=== PATIENT | female | born 1965 | race Caucasian/White ===

== ENCOUNTER 2017-02-26 08:35 | Outpatient (CLI) | payer MEDICARE, MEDICAID ==
[~2017-02-26] VITALS: Ht 151.1 cm; Wt 63.6 kg
--- NOTE | ~2017-02-26 | HEMODYNAMI ---
PATIENT:BRIAN BARBOSA MEDICAL RECORD: [id number] : 69 LOCATION:D.CAT ADMISSION DATE: 02/26/17 Generatedon:02/26/201713:26 Patient name: BRIAN BARBOSA Patient #: [id number] SSN: : 1965 Date of study: 02/26/2017 Page: Of Hemodynamic Procedure Report Patient Data Patient Demographics Procedure consent was obtained First Name: BRIAN Gender: Female Last Name: CHELSEY : 1965 Middle Initial: M Age: 51 year(s) Patient #: [id number] Race: Additional ID: [id number] Contact details Address: [address] [place] [address] [address] State: [place] [facility] [place] Zip code: [address] Past Medical History History of disease Date Diagnosis Comments CAD Allergies Allergen Reaction Date Comments Reported Sulfa drugs 04/26/2015 Contrast 04/26/2015 Admission Admission Data Admission Date: 02/26/2017 Admission Time: 8:35 Procedure Procedure Types Cath Procedure Diagnostic Procedure [facility] w/Coronaries PCI Procedure Coronary Stent Initial x2 Miscellaneous Procedures Moderate Sedation up to 15 minutes Procedure Description Procedure Date Procedure Date: 02/26/2017 Procedure Start Time: 13:06 Procedure End Time: 13:21 Procedure Staff Name Function Jenn De La Rosa RT Scrub Riky Goodrich RT Monitor Min Camarillo RN Nurse Abdulkadir Vidales MD Performing Physician Brenda Long RT Monitor Procedure Data Cath Procedure Fluoroscopy Diagnostic fluoroscopy Total fluoroscopy Time: 3.1 time: 3.1 min min Diagnostic fluoroscopy Total fluoroscopy dose: 455 dose: 455 mGy mGy Contrast Material Contrast Material Type Amount (ml) Isovue 300 79 Entry Location Entry Primary Successful Side Size Upsize Upsize Entry Closure Succes sful Closure Location (Fr) 1 (Fr) 2 (Fr) Remarks Device Remarks Femoral Right 5 Fr 6 Fr artery Short Estimated blood loss: 10 ml Diagnostic catheters Device Type Used For End Catheter Placement Cordis 5Fr Pigtail Procedure Catheter (MP) Cordis 5Fr JL 4.0 Procedure Catheter (MP) Cordis 5Fr 3DRC Catheter Procedure (MP) Procedure Complications No complications Procedure Medications Medication Administration Route Dosage Oxygen NC 2 l/min Heparin Flush Bag added to field 2 bags (1000units/500ml NS) 0.9% NaCl I.V. 100 ml/hr Fentanyl I.V. 50 mcg Versed I.V. 1 mg Fentanyl I.V. 50 mcg Heparin Bolus I.V. 4000 units Versed I.V. 1 mg Hemodynamics Rest Heart Rate: 90 (bpm) Snapshots Pre Cath Intra NCS Post Cath Vital Signs Time Heart Resp SPO2 NIBP (mmHg) Rhythm Pain Sedation Rate (ipm) (%) Status Level (bpm) 12:55:44 87 19 96 117/76(101) NSR 0 (11) 10(A) , No pain 12:59:50 88 17 97 115/76(92) NSR 0 (11) 10(A) , No pain 13:03:56 75 17 96 110/74(98) NSR 0 (11) 10(A) , No pain 13:07:53 82 17 97 110/89(105) NSR 0 (11) 9(A) , No pain 13:11:55 88 19 96 113/80(98) NSR 0 (11) 9(A) , No pain 13:16:01 89 19 97 110/68(84) NSR 0 (11) 9(A) , No pain 13:20:04 90 18 96 106/74(87) NSR 0 (11) 9(A) , No pain 13:21:31 89 17 96 108/72(90) NSR 0 (11) 9(A) , No pain Medications Time Medication Route Dose Verified Delivered Reason Notes Effectiveness by by 13:04:41 Oxygen NC 2 Min [place] Per physician l/min Marquise Camarillo RN RN 13:04:50 Heparin Flush added 2 Min [place] used for Bag to bags Marquise Camarillo RN procedure (1000units/500ml field RN NS) 13:05:01 0.9% NaCl I.V. 100 Min [place] Per physician ml/hr Marquise Camarillo RN RN 13:05:09 Fentanyl I.V. 50 Min [place] for sedation mcg Marquise Camarillo RN RN 13:05:15 Versed I.V. 1 mg Min [place] for sedation Marquise Camarillo RN RN 13:14:47 Fentanyl I.V. 50 Min [place] for sedation mcg Marquise Camarillo RN RN 13:14:57 Heparin Bolus I.V. 4000 Min [place] for units Marquise Camarillo RN anticoagulation RN 13:16:32 Versed I.V. 1 mg Min [place] for sedation Marquise Camarillo RN fusing machine operator Log Time Note 12:32:58 Min Camarillo RN sent for patient. Start room use. 12:42:59 Time tracking: Regular hours 12:43:02 Plan of Care:Hemodynamics will remain stable., Cardiac rhythm will remain stable., Comfort level will be maintained., Respiratory function will remain adequate., Patient/ family verbilizes understanding of procedure., Procedure tolerated without complication., Recovers from procedure without complications.. 12:50:09 Patient received from Pre/Post Procedure Room to CCL 2 Alert and oriented. Tansferred to table in Supine position. 12:50:10 Correct patient and procedure confirmed by team. 12:50:10 Warm blankets applied, and briseida hugger turned on for patient comfort. 12:50:12 Signed procedure consent form obtained from patient. 12:50:18 ECG and BP/O2 sat monitors applied to patient. 12:50:19 Full Disclosure recording started 12:54:42 Vital chart was started 12:56:11 Baseline sample Acquired. 12:56:15 Rhythm: sinus rhythm 12:56:34 H&P Date Dictated: 02/25/2017 Within 30 days and on chart., H&P Addendum completed by physician on day of procedure. (MUST COMPLETE FOR ALL OUTPATIENTS). 12:56:35 Pre-procedure instructions explained to patient. 12:56:37 Family in waiting room. 12:56:44 Is the patient allergic to Iodine/contrast media? No. 12:56:51 Is patient on blood thinner?Yes 12:56:54 ACC The patient was administered the following blood thiners within the last 24 hours: ACCPlavix 12:56:56 Patient diabetic? Yes. 12:56:58 If diabetic: On Metformin? Yes 12:57:00 If on Metformin: Last Dose? 02/25/2017 12:57:05 Snore? Yes 12:57:06 Sleep apnea? Yes 12:57:10 Dentures? Yes ? 12:57:15 Patient pain scale 0/10 ?. 12:57:25 IV patent on arrival in left forearm with 0.9% NaCl at [facility]. 12:57:31 Lab results completed and on chart. 12:57:35 Right groin area was prepped with chlora-prep and draped in sterile fashion 12:57:37 Alarms reviewed by R. N. 12:57:38 Sharps counted by scrub and verified by R.N. 12:57:39 Physician paged 13:00:52 Physician arrived 13:00:53 --------ALL STOP TIME OUT------ 13:00:54 Final Timeout: patient, procedure, and site verified with staff and physician. All members of the team are in agreement. 13:00:56 Right groin site verified by team. 13:01:01 Sedation plan: IV Moderate Sedation Versed, Fentanyl 13:01:05 Physical assessment completed. ASA score P 3 - A patient with severe systemic disease as per Abdulkadir Vidales MD. 13:02:31 Use device set Femoral Dx 13:02:33 Medline Cath Pack opened to sterile field. 13:02:33 Bag Decanter opened to sterile field. 13:02:33 Acist Syringe opened to sterile field. 13:02:34 Terumo 5Fr [place] Sheath opened to sterile field. 13:02:35 St Moiz 260cm J .035 wire opened to sterile field. 13:02:36 Acist Manifold opened to sterile field. 13:02:36 Acist Hand Control opened to sterile field. 13:02:37 Tegaderm 4 x 4 opened to sterile field. 13:02:37 Diagnostic Infinity 5Fr Multipack catheter opened to sterile field. 13:04:41 Oxygen 2 l/min NC was administered by Min Camarillo RN; Per physician; 13:04:50 Heparin Flush Bag (1000units/500ml NS) 2 bags added to field was administered by Min Camarillo RN; used for procedure; 13:05:01 0.9% NaCl 100 ml/hr I.V. was administered by Min Camarillo RN; Per physician; 13:05:09 Fentanyl 50 mcg I.V. was administered by Min Camarillo RN; for sedation; 13:05:15 Versed 1 mg I.V. was administered by Min Camarillo RN; for sedation; 13:05:35 Zero performed for pressure channel P1 13:05:46 Zero performed for pressure channel P1 13:05:49 Zero performed for pressure channel P1 13:06:35 Procedure started. 13:06:44 Local anesthetic to right femoral artery with Lidocaine 2% by Abdulkadir Vidales MD.INITIAL ACCESS ONLY 13:07:04 A 5 Fr sheath was inserted into the Right Femoral artery 13:07:39 A Cordis 5Fr Pigtail Catheter (MP) was advanced over the wire and used for Procedure. 13:08:01 LV angiography performed. 13:08:13 EF : 50 % 13:08:17 Catheter removed. 13:08:26 A Cordis 5Fr JL 4.0 Catheter (MP) was advanced over the wire and used for Procedure. 13:09:30 Catheter removed. 13:09:37 A Cordis 5Fr 3DRC Catheter (MP) was advanced over the wire and used for Procedure. 13:09:56 Terumo 6Fr [place] Sheath opened to sterile field. 13:09:57 [employer] BasixCompak Inflation Kit opened to sterile field. 13:09:58 Payne Whisper J 300cm 0.014 guide wire opened to sterile field. 13:10:57 Sheath upsized to a 6 Fr Short. 13:12:30 6 Fr 3drc guide catheter was inserted over the wire 13:12:49 WestEdtronic Launcher 6Fr 3DRC guide catheter opened to sterile field. 13:12:54 Wire advanced across lesion. 13:14:47 Fentanyl 50 mcg I.V. was administered by Min Camarillo RN; for sedation; 13:14:57 Heparin Bolus 4000 units I.V. was administered by Min Camarillo RN; for anticoagulation; 13:15:01 Inflation Number: 1 A [place] OTW 3.0 x 08 stent was prepped and advanced across the Prox LAD. The stent was deployed at 17 JAROD for 0:10 (min:sec). 13:15:15 Stent catheter was removed intact over wire. 13:16:32 Versed 1 mg I.V. was administered by Min Camarillo RN; for sedation; 13:16:36 Guide catheter removed. 13:16:38 Cordis 6FR XBLAD 3.5 guide catheter opened to sterile field. 13:16:43 Wire advanced across lesion. 13:18:16 Inflation Number: 2 A Doc OTW 3.0 x 08 stent was prepped and advanced across the Prox LAD. The stent was deployed at 17 JAROD for 0:10 (min:sec). 13:18:35 Guide catheter removed. 13:18:55 Cordis 6Fr Exoseal opened to sterile field. 13:19:39 Procedure ended.(Physican Out) 13:19:53 Fluoroscopy time 03.10 minutes. 13:19:58 Fluoroscopy dose: 455 mGy 13:19:58 Flurop Dose total: 455 13:20:05 Contrast amount:Isovue 300 79ml. 13:20:07 Sharps counted by scrub and verified by R.N. 13:20:09 Insertion/operative site no bleeding no hematoma. 13:20:17 Post right femoral artery:stable 13:20:19 Post Procedure Pulses reassessed and unchanged 13:20:25 Post-procedure physical assessment completed. ASA score P 3 - A patient with severe systemic disease as per Abdulkadir Vidales MD. 13:20:29 Post procedure rhythm: unchanged. 13:20:33 Estimated blood loss: 10 ml 13:20:35 Post procedure instruction explained to patient.Patient verbalizes understanding. 13:21:01 Procedure type changed to Cath procedure, Diagnostic procedure, LHC, LHC w/Coronaries, PCI procedure, Coronary Stent Initial x2, Miscellaneous Procedures, Moderate Sedation up to 15 minutes 13:21:02 Procedure and supply charges have been captured, reviewed, submitted and are correct. 13:21:23 Procedure Complication : No complications 13:21:25 Vital chart was stopped 13:21:28 See physician's report for complete and final results. 13:21:31 Report given to Pre/Post Procedure Room. 13:21:35 Patient transfered to Pre/Post Procedure Room with Stretcher. 13:21:37 Full Disclosure recording stopped 13:21:37 Procedure ended. 13:21:40 End room use (Document Last) 13:21:49 ACC-PCI Only Patient was given prescriptions, or instructed by Abdulkadir Vidales MD to start/continue the following medications upon discharge: Plavix Intervention Summary Intervention Notes Time ActionType Lesion and Equipment Action# Pressure Duration Attributes Used 13:15:01 Place stent Prox LAD [place] OTW 1 17 00:10 3.0 x 08 stent 13:18:16 Place stent Prox LAD Doc OTW 2 17 00:10 3.0 x 08 stent Device Usage Item Name Manufacture Quantity Catalog Hospital Part Current Minima l Lot# / Number Charge Number Stock Stock Serial# Code Acist Acist 1 24012 481655 801286 073454 20 Syringe Medical Systems Inc Bag Microtek 1 2002S 834022 00736 260212 5 [employer] Medline Cardinal 1 [id number] 843379 56486 604613 5 Cath Pack Health Terumo 5Fr Terumo 1 OHQ200 829336 912807 490953 [address] Moiz 1 [id number] 539087 109617 560940 30 260cm J .035 wire Acist Hand Acist 1 44348 378396 259161 486862 5 Control Medical Systems Inc Acist Acist 1 30456 344415 642142 007876 5 Leondra music Systems Inc Diagnostic Cardinal 1 [id number] 102208 26121 708759 30 Infinity Health 5Fr Multipack catheter Tegaderm 4 3M 1 1626W 343444 694637 655951 5 x 4 Cordis 5Fr Cardinal 1 204814 5 Pigtail Health Catheter (MP) Cordis 5Fr Cardinal 1 [id number] 5 JL 4.0 Health Catheter (MP) Cordis 5Fr Cardinal 1 966302 5 3DRC Health Catheter (MP) Terumo 6Fr Terumo 1 CNQ522 784278 197449 168013 40 [place] Sheath Merit Merit 1 ID4763 267406 168949 339445 15 [facility] Hospital[facility] Medical Inflation Kit Payne Payne 1 [id number] 857021 493488 075480 5 Whisper J Vascular 300cm 0.014 guide wire Medtronic Medtronic 1 [id number] 396228 056632 775539 1 Launcher 6Fr 3DRC guide catheter Doc OTW Medtronic 2 [id number] 734995 4572948 232897 5 [id number] 3.0 x 08 [id number] stent Cordis 6FR Cardinal 1 [id number] 383845 455565 363631 10 XBLAD 3.5 Health guide catheter Cordis 6Fr Cardinal 1 EX600 510089 441214 217952 10 [facility] Health Signature Audit [place] Stage Time Signature Unsigned Intra-Procedure 02/26/2017 Brenda Long 1:26:08 PM RT(R) Signatures Monitor : Riky Goodrich RT Signature : Date : Time : Monitor : Brenda Long Signature : RT Date : Time : [address] [address]
[~2017-02-26 08:35] MED LIST: ALBUTEROL2.5 MG/3 M UPD; AMBIEN10 MG PO; AMBIEN5 MG PO; BAYER CHEWABLE81 MG PO; BUSPAR 15 MG TA15 MG PO; CELEBREX200 MG PO; CELEXA20 MG PO; COLACE100 MG PO; COMBIVENT RESPIM4 GM INH; DUEXIS PO; LATUDA40 MG PO; LEVAQUIN750 MG PO; LIPITOR80 MG PO; LOPRESSOR50 MG PO; LYRICA200 MG PO; MAXALT10 MG PO; NASONEX NASAL S17 GM NS; NEURONTIN 100100 MG PO; NEURONTIN 300300 MG PO; NEXIUM40 MG PO; NIASPAN500 MG PO; NITROSTAT0.4 MG SL; PAXIL20 MG PO; PAXIL30 MG PO; PERCOCET 10/3251 TA1 PO; PHENERGAN25 M1 PO; PLAVIX75 MG PO; PREDNISONE10 MG PO; PROAIR HFA8.5 GM INH; RANEXA1000 MG PO; RELPAX20 MG PO; REQUIP XL2 MG PO; SOMA350 MG PO; SYMBICORT 16010.2 GM INH; TOPAMAX200 MG PO; TRAZODONE HCL150 MG PO; TRICOR145 MG PO; TRILIPIX135 MG PO; VENTOLIN HFA18 GM INH; VESICARE10 MG PO; XANAX1 MG PO; ZOFRAN4 MG PO
[2017-02-26] MEDS ORDERED: ZANAFLEX4 MG PO (09:21)
[2017-02-26] MEDS ORDERED: PAXIL40 MG PO (09:21)
[2017-02-26] MEDS ORDERED: GLUCOPHAGE500 MG PO (09:23)
[2017-02-26 09:29] VITALS: BP 115/73; Ht 151.1 cm; Wt 63.6 kg
[2017-02-26 10:25] LABS: CALC OSMOLALITY 285 mosm/kg (275-300); CALCIUM 8.3 mg/dL (8.5-10.1); CARBON DIOXIDE 24.4 mmol/L (21.0-32.0); CHLORIDE - SERUM 103 mmol/L (98-107); CREATININE - SERUM 0.8 mg/dL (0.6-1.3); GLUCOSE 180 mg/dL (74-106); POTASSIUM - SERUM 4.7 mmol/L (3.5-5.1); SODIUM 139 mmol/L (136-145); UREA NITROGEN 20 mg/dL (7-18); eGFR NON AFRICAN AMERICAN 81 mL/min (90-120)
[2017-02-26 10:30] LABS: HCG SERUM NEGATIVE (NEGATIVE)
[2017-02-26 12:53] LABS: BASOPHILS 0.3 % (0-2); EOSINOPHILS 0 % (0-7); HEMATOCRIT 43.9 % (36.0-48.0); HEMOGLOBIN 14.3 g/dL (12-16); IMMATURE GRANULOCYTES 1.8 % (0-5); LYMPHOCYTES 16.4 % (15-50); MCH 31.6 pg (26.0-34.0); MCHC 32.6 g/dL (31.0-37.0); MCV 97.1 fL (80.0-100.0); MEAN PLATELET VOLUME 10.2 fL (7.4-10.4); MONOCYTES 1.5 % (2-11); RBC 4.52 10x6/uL (4.00-5.40); RDW 13.9 % (11.5-14.5); WBC 7.1 10x3/uL (4.8-10.8)
[2017-02-26 13:01] LABS: PLATELET COUNT 329 10x3/uL (130-400)
--- NOTE | 2017-02-26 14:00 | NUR ---
RIGHT GROIN CDI, NO HEMATOMA OR BLEEDING AT SITE, SOFT TO TOUCH
--- NOTE | 2017-02-26 14:30 | NUR ---
RESTING, NO CHANGE IN RIGHT GROIN
[2017-02-26] MEDS ORDERED: PLAVIX75 MG PO (14:37)
--- NOTE | 2017-02-26 17:15 | NUR ---
IV D'C WITH CATH TIP INTACT, WRITTEN AND VERBAL INSTRUCTIONS GIVEN TO PT- VERBAL UNDERSTANDING NOTED. [facility] SENT HOME WITH PT AND STRESSED IMPORTANCE OF GETTING THIS FILLED TOMORROW. D'C HOME WITH STEP-DAUGHTER
--- NOTE | 2017-02-27 12:31 | OP ---
PATIENT NAME: BRIAN BARBOSA MEDICAL RECORD: [id number] :[birth year] LOCATION:D.CAT ADMISSION DATE: SURGEON: ELLEN LU MD DATE OF OPERATION: 02/26/2017 PROCEDURES: 1. PTCA stent RCA. 2. PTCA stent LAD. 3. Left heart catheterization. 4. Selective coronary angiography. 5. Left ventriculogram. INDICATION: Angina and coronary artery disease. PROCEDURE IN DETAIL: After informed consent was obtained and after a detailed explanation of the risks, benefits as well as alternative therapies, the patient elected to proceed with angiogram and angioplasty. The right femoral area is prepped and draped in normal sterile fashion. The right femoral artery was cannulated via modified Seldinger technique with placement of 6-English sheath. All catheters exchanged through this sheath. FINDINGS: Left ventriculogram was performed in standard 30-degree GRIMALDO view, reveals good cardiac wall motion throughout all segments. Overall ejection fraction estimated at 55% to 60%. SELECTIVE CORONARY ANGIOGRAPHY: 1. Left main has no significant angiographic disease. 2. Left anterior descending has 80% stenosis at the ostium. 3. Left circumflex has mild irregularities, but no flow-limiting stenosis. Previously placed stents are widely patent. 4. The right coronary has previously placed stents, these are widely patent; however, there is 80% stenosis in the mid distal vessel. PTCA STENT OF THE RCA and LAD: Both vessels were addressed with a 3.0 x 8 mm [place] stent. Result was 0% residual stenosis. OVERALL IMPRESSION: Successful percutaneous transluminal coronary angioplasty stent of the RCA and LAD, both going from 80% initial stenosis to 0% residual. TRANSINT:[id number] Voice Confirmation ID: [id number] DOCUMENT ID: [id number] ELLEN LU MD at 1231 CC: [id number] DICTATION DATE: 02/26/17 1323 ORE MIXER: 02/26/17 2137 [facility] CLI 02/26/[address] [address]
== END 2017-02-26 17:30 | disposition home or self-care (01) ==
LOC: D.CATH 08:35
PROVIDERS: Internal Medicine Interventional Cardiology
DX: I25.119 Atherosclerotic heart disease of native coronary artery with unspecified angina pectoris (principal); Z01.812 Encounter for preprocedural laboratory examination

== ENCOUNTER → 2017-03-11 10:04 | Outpatient (CLI) | payer MEDICARE, MEDICAID ==
[2017-02-26 09:29] VITALS: BMI 27.8
[~2017-03-11 10:04] MED LIST changes: +GLUCOPHAGE500 MG PO; +PAXIL40 MG PO; +ZANAFLEX4 MG PO
== END | disposition home or self-care (01) ==
LOC: D.MRI 03-05 11:30
DX: M54.12 Radiculopathy, cervical region (principal)

== ENCOUNTER 2017-12-31 08:09 | Outpatient (CLI) | payer MEDICARE, MEDICAID ==
[~2017-12-31] VITALS: Ht 149.9 cm; Wt 61.4 kg
--- NOTE | ~2017-12-31 | HEMODYNAMI ---
PATIENT:BRIAN BARBOSA MEDICAL RECORD: [id number] : 69 LOCATION:[facility] ADMISSION DATE: 12/31/17 Generatedon:12/31/201713:56 Patient name: BRIAN BARBOSA Patient #: [id number] SSN: : 1965 Date of study: 12/31/2017 Page: Of Hemodynamic Procedure Report Patient Data Patient Demographics Procedure consent was obtained First Name: BRIAN Gender: Female Last Name: CHELSEY : 1965 Middle Initial: M Age: 52 year(s) Patient #: [id number] Race: Additional ID: [id number] Contact details Address: [address] [place] [address] [address] State: [place] City: [facility] Zip code: [address] Past Medical History History of disease Date Diagnosis Comments CAD Allergies Allergen Reaction Date Comments Reported Sulfa drugs 04/26/2015 Contrast 04/26/2015 Iodine 12/31/2017 Sulfa drugs 12/31/2017 Admission Admission Data Admission Date: 12/31/2017 Admission Time: 8:09 Procedure Procedure Types Cath Procedure Diagnostic Procedure [facility] w/Coronaries FFR/IVUS Intra-Coronary IVUS Initial Sedation Charges Moderate Sedation up to 15 minutes PCI Procedure Coronary Stent Coronary Stent Initial Procedure Description Procedure Date Procedure Date: 12/31/2017 Procedure Start Time: 13:36 Procedure End Time: 13:55 Procedure Staff Name Function Abdulkadir Vidales MD Performing Physician Jenn De La Rosa RT Monitor Riky Goodrich RT Scrub Wai Wray RN Nurse Procedure Data Cath Procedure Fluoroscopy Diagnostic fluoroscopy Total fluoroscopy Time: 3.2 time: 3.2 min min Diagnostic fluoroscopy Total fluoroscopy dose: 170 dose: 170 mGy mGy Contrast Material Contrast Material Type Amount (ml) Isovue 300 77 Entry Location Entry Primary Successful Side Size Upsize Upsize Entry Closure Succes sful Closure Location (Fr) 1 (Fr) 2 (Fr) Remarks Device Remarks Femoral Right 5 Fr Exoseal artery Estimated blood loss: 10 ml Diagnostic catheters Device Type Used For End Catheter Placement MULTIPACK Pigtail 5 Fr LV Angiography catheter MULTIPACK JL 4.0 5Fr Left Coronary catheter Angiography MULTIPACK 3DRC 5Fr Right Coronary catheter Angiography Procedure Complications No complications Procedure Medications Medication Administration Route Dosage Versed I.V. 2 mg Fentanyl I.V. 100 mcg Oxygen NC 2 l/min Lidocaine 2% added to field 20 Heparin Flush Bag added to field 2 bags (1000units/500ml NS) 0.9% NaCl I.V. 100 ml/hr Versed I.V. 1 mg Fentanyl I.V. 50 mcg Heparin Bolus I.V. 4000 units Integrilin (Bolus I.V. 5.6 ml 2mg/ml) Versed I.V. 1 mg Fentanyl I.V. 50 mcg Plavix P.O. 600 mg Hemodynamics Rest Heart Rate: 76 (bpm) Snapshots Pre Cath Intra NCS Post Cath Vital Signs Time Heart Resp SPO2 etCO2 NIBP (mmHg) Rhythm Pain Sedation Rate (ipm) (%) (mmHg) Status Level (bpm) 13:24:20 77 14 99 23.1 116/77(110) NSR 0 (11) 10(A) , No pain 13:28:33 75 14 95 37.3 111/74(83) NSR 0 (11) 10(A) , No pain 13:32:45 74 16 100 32.1 96/66(87) NSR 0 (11) 10(A) , No pain 13:36:53 75 15 100 32.8 95/65(76) NSR 0 (11) 10(A) , No pain 13:41:01 69 12 100 33.6 93/64(73) NSR 0 (11) 9(A) , No pain 13:45:07 81 16 100 35.8 103/63(78) NSR 0 (11) 9(A) , No pain 13:49:15 80 16 99 33.6 84/60(76) NSR 0 (11) 9(A) , No pain 13:53:20 78 17 99 33.6 96/55(74) NSR 0 (11) 10(A) , No pain Medications Time Medication Route Dose Verified Delivered Reason Notes Effectiveness by by 13:24:42 Oxygen NC 2 Abdulkadir Carreno used for l/min Sobeida Wray soap press feeder 13:25:50 Lidocaine 2% added 20ml Abdulkadir Panchal for local to vial Sobeida Vidales MD anesthetic field 13:25:56 Heparin Flush added 2 Abdulkadir Abdulkadir used for Bag to bags Sobeida Vidales MD procedure (1000units/500ml field NS) 13:30:06 0.9% NaCl I.V. 100 Abdulkadir Buffie Per physician ml/hr Sobeida Wray RN 13:31:37 Versed I.V. 2 mg Abdulkadir Buffie used for Sobeida Wray RN procedure 13:31:42 Fentanyl I.V. 100 Abdulkadir Buffie for sedation mcg Sobeida Wray RN 13:39:16 Versed I.V. 1 mg Abdulkadir Buffie used for Sobeida Wray RN procedure 13:39:21 Fentanyl I.V. 50 Abdulkadir Buffie for sedation mcg Sobeida Wray RN 13:45:07 Heparin Bolus I.V. 4000 Abdulkadir Buffie for verifi ed units Sobeida Wray RN anticoagulation with dr vidales 13:46:58 Integrilin I.V. 5.6 Abdulkadir Buffie for Wasted (Bolus 2mg/ml) ml Sobeida Wray RN antiplatelet 4.4 ml therapy of vial. 13:49:04 Versed I.V. 1 mg Abdulkadir Buffie used for Sobeida Wray RN procedure 13:49:08 Fentanyl I.V. 50 Abdulkadir Buffie for sedation mcg Sobeida Wray RN 13:54:55 Plavix P.O. 600 Abdulkadir Buffie for mg Sobeida Wray RN antiplatelet therapy Procedure Log Time Note 13:02:46 Time tracking: Regular hours (M-F 7:00 - 5:00) 13:02:49 Plan of Care:Hemodynamics will remain stable., Cardiac rhythm will remain stable., Comfort level will be maintained., Respiratory function will remain adequate., Patient/ family verbilizes understanding of procedure., Procedure tolerated without complication., Recovers from procedure without complications.. 13:02:52 Riky VILLALOBOS(R) (CV) sent for patient. Start room use. 13:13:02 Patient received from Pre/Post Procedure Room to CCL 3 Alert and oriented. Tansferred to table in Supine position. 13:23:08 Warm blankets applied, and briseida hugger turned on for patient comfort. 13:23:08 Correct patient and procedure confirmed by team. 13:23:09 Signed procedure consent form obtained from patient. 13:23:10 ECG and BP/O2 sat monitors applied to patient. 13:23:11 Full Disclosure recording started 13:23:12 Vital chart was started 13:23:15 Rhythm: sinus rhythm 13:23:31 H&P Date Dictated: 12/23/2017 Within 30 days and on chart.. 13:23:32 Pre-procedure instructions explained to patient. 13:23:33 Pre-op teaching completed and patient verbalized understanding. 13:23:34 Family in patients room. 13:23:37 Patient NPO since Midnight. 13:23:42 Patient allergic to Iodine 13:23:46 Patient allergic to Sulfa drugs 13:23:49 Is the patient allergic to Iodine/contrast media? Yes. 13:23:50 Was the patient premedicated? Yes 13:23:51 Is patient on blood thinner?No 13:23:53 Patient diabetic? No. 13:23:59 Previous problem with sedation/anesthesia? No ? 13:24:00 Snore? No 13:24:01 Sleep apnea? No 13:24:02 Deviated septum? No 13:24:03 Opens mouth fully? Yes 13:24:04 Sticks out tongue? Yes 13:24:07 Airway obstruction? Yes COPD 13:24:10 Dentures? Yes IN 13:24:14 Pre procedure: right dorsailis pedis pulse 2+ Normal; easily identifiable; not easily obliterated 13:24:17 Patient pain scale 0/10 ?. 13:24:27 IV patent on arrival in left hand with 0.9% NaCl at O. 13:24:30 Lab results completed and on chart. 13:24:33 Right groin area was prepped with chlora-prep and draped in sterile fashion 13:24:34 Alarms reviewed by R. N. 13:24:34 Sharps counted by scrub and verified by R.N. 13:24:38 Use device set Femoral Dx 13:24:39 ACIST Syringe (58551) opened to sterile field. 13:24:39 Bag Decanter (2002) opened to sterile field. 13:24:40 Medline Cath Pack ([id number]) opened to sterile field. 13:24:40 DIAGNOSTIC WIRE .035 260cm J wire (417678) opened to sterile field. 13:24:41 ACIST Hand Control (21168) opened to sterile field. 13:24:42 Oxygen 2 l/min NC was administered by Wai Wray RN; used for procedure; 13:24:42 ACIST Manifold (00338) opened to sterile field. 13:24:42 DIAGNOSTIC Multipack 5Fr catheter set ([id number]) opened to sterile field. 13:24:43 Tegaderm 4 x 4 (1626W) opened to sterile field. 13:24:44 PERCUTANEOUS ENTRY 19GA needle opened to sterile field. 13:24:44 SHEATH Prelude 5Fr 0.035 (OZA-5Z-86-035) opened to sterile field. 13:25:50 Lidocaine 2% 20ml vial added to field was administered by Abdulkadir Vidales MD; for local anesthetic; 13:25:56 Heparin Flush Bag (1000units/500ml NS) 2 bags added to field was administered by Abdulkadir Vidales MD; used for procedure; 13:29:39 Final Timeout: patient, procedure, and site verified with staff and physician. All members of the team are in agreement. 13:29:41 Right groin site verified by team. 13:29:43 Physical assessment completed. ASA score P 2 - A patient with mild systemic disease as per Abdulkadir Vidales MD. 13:29:46 Sedation plan: IV Moderate Sedation Medication:Versed, Fentanyl 13:30:06 0.9% NaCl 100 ml/hr I.V. was administered by Wai Wray RN; Per physician; 13:31:37 Versed 2 mg I.V. was administered by Wai Wray RN; used for procedure; ::42 Fentanyl 100 mcg I.V. was administered by Wai Wray RN; for sedation; 13:34:35 Zero performed for pressure channel P1 13:36:39 Procedure started. 13:36:44 Local anesthetic to right femoral artery with Lidocaine 2% by Abdulkadir Vidales MD.INITIAL ACCESS ONLY 13:36:54 Baseline sample Acquired. 13:38:52 A 5 Fr sheath was inserted into the Right Femoral artery 13:39:14 A MULTIPACK Pigtail 5 Fr catheter was advanced over the wire and used for LV Angiography. 13:39:16 Versed 1 mg I.V. was administered by Wai Wray RN; used for procedure; 13:39:21 Fentanyl 50 mcg I.V. was administered by Wai Wray RN; for sedation; 13:39:45 LV gram done using GRIMALDO 13:39:47 Injector settings: Ml/sec: 10, Volume: 20, 13:39:54 EF : 60 % 13:39:57 Catheter removed. 13:40:01 A MULTIPACK JL 4.0 5Fr catheter was advanced over the wire and used for Left Coronary Angiography. 13:41:24 Catheter removed. 13:41:33 A MULTIPACK 3DRC 5Fr catheter was advanced over the wire and used for Right Coronary Angiography. 13:42:32 Catheter removed. 13:43:06 Use device set SOBEIDA PCI 13:43:13 INFLATOR Merit BasixCompak (BY5318) opened to sterile field. 13:43:17 CHOICE PT Extra Support 182cm wire ([id number]) opened to sterile field. 13:43:20 GUIDE 6FR HS I catheter (LA6HSI) opened to sterile field. 13:43:22 SHEATH Prelude 6Fr 0.035 (BUA-1Y-78-035) opened to sterile field. 13:43:43 [place] Eagley[place] IVUS Catheter (61341G) opened to sterile field. 13:44:28 6 Fr HS I guide catheter was inserted over the wire 13:45:07 Heparin Bolus 4000 units I.V. was administered by Wai Wray RN; for anticoagulation; verified with dr vidales 13:45:11 CHOICE PT ES wire advanced. 13:46:49 IVUS catheter advanced over wire. 13:46:52 IVUS pass to RCA lesion performed. 13:46:58 Integrilin (Bolus 2mg/ml) 5.6 ml I.V. was administered by Wai Wray RN; for antiplatelet therapy; Wasted 4.4 ml of vial. 13:47:35 IVUS catheter removed over wire. 13:49:04 Versed 1 mg I.V. was administered by Wai Wray RN; used for procedure; 13:49:08 Fentanyl 50 mcg I.V. was administered by Wai Wray RN; for sedation; 13:49:41 Place stent Inflation Number: 1 A POPEYE RX 3.5 x 15 stent ([id number]) was prepped and advanced across the Mid RCA. The stent was deployed at 13 JAROD for 0:05 (min:sec). 13:49:53 Stent catheter was removed intact over wire. 13:49:54 Wire removed. 13:49:54 Guide catheter removed. 13:50:04 Sheath removed intact; hemostasis achieved with Exoseal to the Right Femoral artery. 13:50:06 Procedure ended.(Physican Out) 13:50:09 EXOSEAL 6Fr (EX600) opened to sterile field. 13:50:14 Fluoroscopy time 03.20 minutes. 13:50:18 Flurop Dose total: 170 13:50:18 Fluoroscopy dose: 170 mGy 13:50:23 Contrast amount:Isovue 300 77ml. 13:50:24 Sharps counted by scrub and verified by R.N. 13:50:26 Insertion/operative site no bleeding no hematoma. 13:50:28 Post-op/insertion site Right Femoral artery dressed using a 4 x 4 and Tegaderm. 13:50:31 Post right femoral artery:stable, clean and dry 13:50:33 Post Procedure Pulses reassessed and unchanged 13:50:34 Post-procedure physical assessment completed. ASA score P 2 - A patient with mild systemic disease as per Abdulkadir Vidales MD. 13:50:36 Post procedure rhythm: unchanged. 13:50:39 Estimated blood loss: 10 ml 13:50:42 Post procedure instruction explained to patient.Patient verbalizes understanding. 13:50:42 Patient needs reinforcement of post procedure teaching. 13:51:16 Procedure type changed to Cath procedure, Diagnostic procedure, LHC, LHC w/Coronaries, FFR/IVUS, Intra-Coronary IVUS Initial, Sedation Charges, Moderate Sedation up to 15 minutes, PCI procedure, Coronary Stent, Coronary Stent Initial 13:51:21 Procedure Complication : No complications 13:51:27 See physician's report for complete and final results. 13:54:22 Procedure and supply charges have been captured, reviewed, submitted and are correct. 13:54:52 Vital chart was stopped 13:54:54 Report given to Pre/Post Procedure Room. 13:54:55 Plavix 600 mg P.O. was administered by Wai Wray RN; for antiplatelet therapy; 13:54:58 Patient transfered to Pre/Post Procedure Room with Stretcher. 13:55:07 Procedure ended. 13:55:07 Full Disclosure recording stopped 13:55:11 End room use (Document Last) Intervention Summary Intervention Notes Time ActionType Lesion and Equipment Used Action# Pressure Duration Attributes 13:49:41 Place stent Mid RCA POPEYE RX 3.5 x 1 13 00:06 15 stent ([id number]) Device Usage Item Name Manufacture Quantity Catalog Number Hospital Part Current Minimal Lot# / Charge Number Stock Stock Serial# Code ACIST Syringe Acist 1 60527 [id number] 085564 471724 20 (73042) Medical Systems Inc Bag Decanter Microtek 1 2001S [id number] 04171 223447 5 (2001S) Medical Inc. Medline Cath Cardinal 1 [id number] 390947 65810 712386 5 Qualgenix ([id number]) DIAGNOSTIC WIRE [place] 1 224323 710100 960273 641163 30 .035 260cm J wire (742246) ACIST Hand Acist 1 84473 814447 755215 505181 5 Control (12865) Medical Systems Skiin Fundementals ACIST Manifold Acist 1 53379 873339 615339 842410 5 (06172) Medical Systems [employer]in [employer]ementals DIAGNOSTIC Cardinal 1 HC4205 207604 18250 468642 30 Multipack 5Fr Health catheter set (RJ5420) Tegaderm 4 x 4 3M 1 1626W 587923 718188 540702 5 (1626W) PERCUTANEOUS Cook Medical 1 F24562 887262 312214 5 ENTRY 19GA needle SHEATH Prelude Merit 1 THQ-8L-05-035 870871 509976 156210 5 5Fr 0.035 Medical (FHF-9Y-68-035) MULTIPACK Cardinal 1 409366 5 Pigtail 5 Fr Health catheter MULTIPACK JL Cardinal 1 020176 5 4.0 5Fr Health catheter MULTIPACK 3DRC Cardinal 1 179770 5 5Fr catheter Health INFLATOR Merit Merit 1 JE5577 267851 271261 009572 15 [employer] Medical ([id number]) CHOICE PT Extra [place] 1 [id number] 717371 275898 981653 5 Support 182cm Scientific wire ([id number]) GUIDE 6FR HS I Medtronic 1 LA6HSI 750949 85977 130684 1 catheter (LA6HSI) SHEATH Prelude Merit 1 BDK-3Z-82-35 941526 4504796 363081 5 6Fr 0.035 Medical (DAU-7H-60-035) [place] 1 [id number] 784005 977011 311704 8 [place] IVUS Catheter (11589N) POPEYE RX 3.5 x Medtronic 1 [id number] 574618 8135177 950140 5 [id number] 15 stent ([id number]) EXOSEAL 6Fr Cardinal 1 EX600 044485 302450 361499 10 (EX600) Health Signature Audit Sesser Stage Time Signature Unsigned Intra-Procedure 12/31/2017 Jenn 1:56:24 PM Counts RT(R) Signatures Monitor : Jenn Signature : Counts RT Date : Time : [address] [address]
--- NOTE | ~2017-12-31 | OP ---
PATIENT NAME: BRIAN BARBOSA MEDICAL RECORD: [id number] :69 LOCATION:D.[facility] ADMISSION DATE: SURGEON: ELLEN LU MD DATE OF OPERATION: 12/31/2017 PROCEDURES: 1. PTCA stent RCA. 2. Intravascular ultrasound. 3. Left heart catheterization. 4. Selective coronary angiography. 5. Left ventriculogram. INDICATION: Angina and coronary artery disease. PROCEDURE IN DETAIL: After informed consent was obtained and after a detailed description of risks, benefits as well as alternative therapies, the patient elected to proceed with angiogram and angioplasty. The right femoral area was prepped and draped in normal sterile fashion. Right femoral artery was cannulated via modified Seldinger technique with placement of 6-[place] Citizen sheath. All catheters exchanged through this sheath. FINDINGS: The left ventriculogram was performed in standard 30-degree GRIMALDO view, reveals preserved cardiac wall motion, ejection fraction 50%. SELECTIVE CORONARY ANGIOGRAPHY: 1. Left main with no significant angiographic disease. 2. Left anterior descending has previously placed stents. There is up to 80% in-stent restenosis in the mid vessel. 3. The left circumflex has moderate irregularities, but no flow-limiting stenosis. 4. Right coronary artery has greater than 70% stenosis in the mid vessel confirmed by intravascular ultrasound. PTCA STENT OF THE RIGHT CORONARY ARTERY: The stent used was 3.5 x 15 mm Redfox. Result was 0% residual stenosis. OVERALL IMPRESSION: Successful percutaneous transluminal coronary angioplasty stent of the right coronary artery going from 70% initial stenosis to 0% residual. PLAN: For PTCA stent of the LAD in the near future. TRANSINT:[id number] Voice Confirmation ID: [id number] DOCUMENT ID: [id number] ELLEN LU MD at 1403 CC: [id number] DICTATION DATE: 12/31/17 1356 LABORER CARPENTRY DOCK: 12/31/17 1413 DEP CLI 12/31/[address] [address]
[2017-12-31 09:00] VITALS: BP 98/64; Ht 149.9 cm; Wt 61.4 kg
[2017-12-31 09:10] LABS: BASOPHILS 0 % (0-2); EOSINOPHILS 0 % (0-7); HEMATOCRIT 39.7 % (36.0-48.0); IMMATURE GRANULOCYTES 0.6 % (0-5); LYMPHOCYTES 13.5 % (15-50); MCH 31.6 pg (26.0-34.0); MCHC 32.7 g/dL (31.0-37.0); MCV 96.6 fL (80.0-100.0); MEAN PLATELET VOLUME 9.9 fL (7.4-10.4); MONOCYTES 1.8 % (2-11); NEUTROPHILS 84.1 % (40-80); PLATELET COUNT 295 10x3/uL (130-400); RBC 4.11 10x6/uL (4.00-5.40); RDW 14.4 % (11.5-14.5); WBC 7.2 10x3/uL (4.8-10.8)
[2017-12-31 09:23] LABS: ANION GAP 15.9 mmol/L (8-16); CALCIUM 9.4 mg/dL (8.5-10.1); CARBON DIOXIDE 25.3 mmol/L (21.0-32.0); CREATININE - SERUM 1.1 mg/dL (0.6-1.3); POTASSIUM - SERUM 5.2 mmol/L (3.5-5.1)
[2017-12-31] MEDS ORDERED: PLAVIX75 MG PO (14:18)
[2017-12-31] MEDS ORDERED: PERCOCET 10/3251 TA1 PO (14:19)
[2017-12-31] MEDS ORDERED: PREDNISONE20 MG PO (14:19)
[2018-01-12] MEDS ORDERED: LEVAQUIN500 MG PO (18:15)
== END 2017-12-31 18:39 | disposition home or self-care (01) ==
LOC: D.CATH 08:09
PROVIDERS: Internal Medicine Interventional Cardiology
DX: I25.119 Atherosclerotic heart disease of native coronary artery with unspecified angina pectoris (principal); Z01.812 Encounter for preprocedural laboratory examination
CPT/HCPCS: 92978; 93458; C9600

== ENCOUNTER 2018-01-04 07:38 | Outpatient (CLI) | payer MEDICARE, MEDICAID ==
[~2018-01-04] VITALS: Ht 149.9 cm; Wt 61.4 kg
--- NOTE | ~2018-01-04 | HEMODYNAMI ---
PATIENT:BRIAN BARBOSA MEDICAL RECORD: [id number] : 69 LOCATION:[facility] ADMISSION DATE: 01/04/18 Generatedon:01/04/201810:54 Patient name: BRIAN BARBOSA Patient #: [id number] SSN: : 1965 Date of study: 01/04/2018 Page: Of Hemodynamic Procedure Report Patient Data Patient Demographics Procedure consent was obtained First Name: BRIAN Gender: Female Last Name: CHELSEY : 1965 Middle Initial: M Age: 52 year(s) Patient #: [id number] Race: Additional ID: [id number] Contact details Address: [address] [place] [address] [address] State: [place] City: [facility] Zip code: [address] Past Medical History History of disease Date Diagnosis Comments CAD Allergies Allergen Reaction Date Comments Reported Sulfa drugs 04/26/2015 Contrast 04/26/2015 Iodine 12/31/2017 Sulfa drugs 12/31/2017 Other allergy 01/04/2018 IODINE, SULFA Admission Admission Data Admission Date: 01/04/2018 Admission Time: 7:38 Lab Results Lab Result Date: 01/04/2018 Lab Result Time: 0:00 Biochemistry Name Units Result Min Max BUN mg/dl 22 --(----)-* 7 18 Creatinine mg/dl 0.7 --(*---)-- 0.6 1.3 CBC Name Units Result Min Max Hemoglobin g/dl 13.1 -*(----)-- 13.5 17.5 Procedure Procedure Types Cath Procedure PCI Procedure Coronary Stent Coronary Stent Initial Procedure Description Procedure Date Procedure Date: 01/04/2018 Procedure Start Time: 10:41 Procedure End Time: 10:52 Procedure Staff Name Function Abdulkadir Vidales MD Performing Physician Kandy Gonzalez RT Monitor James Mead RT Scrub Oracio Garrido RN Nurse Procedure Data Cath Procedure Fluoroscopy Diagnostic fluoroscopy Total fluoroscopy Time: 1.3 time: 1.3 min min Diagnostic fluoroscopy Total fluoroscopy dose: 103 dose: 103 mGy mGy Contrast Material Contrast Material Type Amount (ml) Isovue 300 21 Entry Location Entry Primary Successful Side Size Upsize Upsize Entry Closure Succes sful Closure Location (Fr) 1 (Fr) 2 (Fr) Remarks Device Remarks Femoral Left 6 Fr Exoseal artery Short Estimated blood loss: 10 ml Procedure Complications No complications Procedure Medications Medication Administration Route Dosage 0.9% NaCl I.V. 100 ml/hr Oxygen etCO2 Nasal cannula 2 l/min Heparin Flush Bag added to field 2 bags (1000units/500ml NS) Lidocaine 2% S.C. 20 Versed I.V. 2 mg Fentanyl I.V. 100 mcg Heparin Bolus I.V. 4000 units Fentanyl I.V. 50 mcg Hemodynamics Rest HGB: 13.1 (g/dl) Heart Rate: 71 (bpm) Snapshots Pre Cath Intra NCS Post Cath Vital Signs Time Heart Resp SPO2 etCO2 NIBP (mmHg) Rhythm Pain Sedation Rate (ipm) (%) (mmHg) Status Level (bpm) 10:31:13 81 15 100 38.9 113/86(101) NSR 0 (11) 10(A) , No pain 10:35:53 73 11 100 36.7 115/75(99) NSR 0 (11) 10(A) , No pain 10:40:34 74 12 100 43.4 111/74(102) NSR 0 (11) 9(A) , No pain 10:45:12 72 16 100 42.6 111/70(90) NSR 0 (11) 10(A) , No pain 10:49:53 76 14 100 102/59(78) NSR 0 (11) 10(A) , No pain Medications Time Medication Route Dose Verified Delivered Reason Notes Effectiveness by by 10:29:35 0.9% NaCl I.V. 100 Oracio Oracio Per physician ml/hr Hema Garrido RN RN 10:29:47 Oxygen etCO2 2 Oracio Oracio Per physician Nasal l/min Hema Garrido cannula RN RN 10:29:59 Heparin Flush added 2 Oracio Oracio used for Bag to bags Hema Garrido procedure (1000units/500ml field RN RN NS) 10:30:10 Lidocaine 2% S.C. 20ml Oracio Oracio for local vial Lorigan Heam anesthetic RN RN 10:39:14 Versed I.V. 2 mg Oracio Oracio for sedation Hema Garrido RN RN 10:39:22 Fentanyl I.V. 100 Oracio Oracio for sedation mcg Hema Garrido RN RN 10:44:09 Heparin Bolus I.V. 4000 Oracio Oracio for units Hema Garrido anticoagulation RN RN 10:48:06 Fentanyl I.V. 50 Oracio Oracio for back pain mcg Hema Garrido RN international trade teacher Log Time Note 10::28 H&P Date Dictated: 12/23/2017 Within 30 days and on chart., H&P Addendum completed by physician on day of procedure. (MUST COMPLETE FOR ALL OUTPATIENTS). 10:07:30 Signed procedure consent form obtained from patient. 10:07:32 Time tracking: Regular hours (M-F 7:00 - 5:00) 10:07:34 Plan of Care:Hemodynamics will remain stable., Cardiac rhythm will remain stable., Comfort level will be maintained., Respiratory function will remain adequate., Patient/ family verbilizes understanding of procedure., Procedure tolerated without complication., Recovers from procedure without complications.. 10:09:08 Kandy Gonzalez RT(R) sent for patient. Start room use. 10:19:38 Patient received from Pre/Post Procedure Room to CCL 1 Alert and oriented. Tansferred to table in Supine position. 10:19:40 Warm blankets applied, and briseida hugger turned on for patient comfort. 10:19:40 Correct patient and procedure confirmed by team. 10:19:41 ECG and BP/O2 sat monitors applied to patient. 10:19:43 Pre-procedure instructions explained to patient. 10:19:43 Pre-op teaching completed and patient verbalized understanding. 10:19:45 Family in waiting room. 10:29:35 0.9% NaCl 100 ml/hr I.V. was administered by Oracio Garrido RN; Per physician; 10:29:47 Oxygen 2 l/min etCO2 Nasal cannula was administered by Oracio Garrido RN; Per physician; 10:29:59 Heparin Flush Bag (1000units/500ml NS) 2 bags added to field was administered by Oracio Garrido RN; used for procedure; 10:30:10 Lidocaine 2% 20ml vial S.C. was administered by Oracio Lorigan RN; for local anesthetic; 10:30:18 Vital chart was started 10:31:39 Baseline sample Acquired. 10:31:44 Rhythm: sinus rhythm 10:31:45 Full Disclosure recording started 10:31:50 Patient NPO since Midnight. 10:32:04 Patient allergic to Other allergyIODINE, SULFA 10:32:06 Is the patient allergic to Iodine/contrast media? Yes. 10:32:07 Was the patient premedicated? Yes 10:32:08 Is patient on blood thinner?Yes 10:32:11 ACC The patient was administered the following blood thiners within the last 24 hours: ACCPlavix 10:32:23 LAST DOSE 6.4.18 AT 1600 10:32:26 Patient diabetic? Yes. 10:32:27 If diabetic: On Metformin? Yes 10:32:33 If on Metformin: Last Dose? 12/31/2017 10:32:42 Previous problem with sedation/anesthesia? No ? 10:32:44 Snore? No 10:32:45 Sleep apnea? Yes 10:32:46 Deviated septum? No 10:32:47 Opens mouth fully? Yes 10:32:47 Sticks out tongue? Yes 10:32:55 Airway obstruction? Yes COPD, EMPHYSEMA 10:33:01 Pre procedure: left dorsailis pedis pulse 2+ Normal; easily identifiable; not easily obliterated 10:33:16 IV patent on arrival in left hand with 0.9% NaCl at [facility]. 10:33:36 Lab Result : BUN 22 mg/dl 10:33:36 Lab Result : Hemoglobin 13.1 g/dl 10:33:36 Lab Result : Creatinine 0.7 mg/dl 10:33:39 Lab results completed and on chart. 10:33:47 Left groin area was prepped with chlora-prep and draped in sterile fashion 10:33:48 Alarms reviewed by R. N. 10:33:48 Alarms reviewed by R. N. 10:33:49 Sharps counted by scrub and verified by R.N. 10:33:51 --------ALL STOP TIME OUT------ 10:33:51 Final Timeout: patient, procedure, and site verified with staff and physician. All members of the team are in agreement. 10:33:53 Left groin site verified by team. 10:33:55 Physical assessment completed. ASA score P 2 - A patient with mild systemic disease as per Abdulkadir Vidales MD. 10:33:59 Sedation plan: IV Moderate Sedation Medication:Versed, Fentanyl 10:34:05 Use device set CATH PACK 10:34:07 ACIST Syringe (98911) opened to sterile field. 10:34:08 ACIST Hand Control (10534) opened to sterile field. 10:34:08 ACIST Manifold (77896) opened to sterile field. 10:34:09 Medline Cath Pack ([id number]) opened to sterile field. 10:34:09 Bag Decanter (2002S) opened to sterile field. 10:34:10 DIAGNOSTIC WIRE .035 260cm J wire (347105) opened to sterile field. 10:35:37 INFLATOR Merit BasixCompak (AB8118) opened to sterile field. 10:35:37 CHOICE PT Extra Support 182cm wire ([id number]) opened to sterile field. 10:35:38 SHEATH 6FR Powell (KEQ461) opened to sterile field. 10:38:36 Zero performed for pressure channel P1 10:39:14 Versed 2 mg I.V. was administered by Oracio Garrido RN; for sedation; 10:39:22 Fentanyl 100 mcg I.V. was administered by Oracio Garrido RN; for sedation; 10:40:37 GUIDE 6FR EBU 3.5 SH catheter ([id number]) opened to sterile field. 10:41:02 Procedure started. 10:41:05 Local anesthetic to left femerol artery with Lidocaine 2% by Abdulkadir Vidales MD.INITIAL ACCESS ONLY 10:41:13 A 6 Fr Short sheath was inserted into the Left Femoral artery 10:42:20 6 Fr EBU 3.5 SH guide catheter was inserted over the wire 10:43:13 CHOICE ES 182 wire advanced. 10:43:33 Wire advanced across lesion. 10:44:09 Heparin Bolus 4000 units I.V. was administered by Oracio Garrido RN; for anticoagulation; 10:44:55 Place stent Inflation Number: 1 A POPEYE RX 3.0 x 12 stent ([id number]) was prepped and advanced across the Mid LAD. The stent was deployed at 17 JAROD for 0:00 (min:sec). 10:45:04 Inflation number: 2 The stent balloon was then re-inflated across the Mid LAD to 17 JAROD for 0:00 (min:sec). 10:45:19 Stent catheter was removed intact over wire. 10:45:19 Wire removed. 10:45:20 Guide catheter removed. 10:45:29 EXOSEAL 6Fr (EX600) opened to sterile field. 10:46:11 Sheath removed intact; hemostasis achieved with Exoseal to the Left Femoral artery. 10:46:13 Procedure ended.(Physican Out) 10:48:06 Fentanyl 50 mcg I.V. was administered by Oracio Garrido RN; for back pain; 10:48:21 Fluoroscopy time 01.30 minutes. 10:48:24 Fluoroscopy dose: 103 mGy 10:48:24 Flurop Dose total: 103 10:48:28 Contrast amount:Isovue 300 21ml. 10:48:29 Sharps counted by scrub and verified by R.N. 10:48:47 Post procedure: left dorsailis pedis pulse 2+ Normal; easily identifiable; not easily obliterated. 10:48:49 Post-procedure physical assessment completed. ASA score P 2 - A patient with mild systemic disease as per Abdulkadir Vidales MD. 10:48:55 Post procedure rhythm: sinus rhythm 10:48:58 Estimated blood loss: 10 ml 10:48:59 Post procedure instruction explained to patient.Patient verbalizes understanding. 10:49:00 Patient needs reinforcement of post procedure teaching. 10:49:58 Procedure and supply charges have been captured, reviewed, submitted and are correct. 10:50:24 Femstop placed over the left femerol artery at 130 mmHg. Hemostasis achieved. 10:52:43 Procedure Complication : No complications 10:52:46 Vital chart was stopped 10:52:46 See physician's report for complete and final results. 10:52:48 Report given to Pre/Post Procedure Room. 10:52:51 Patient transfered to Pre/Post Procedure Room with Bed. 10:52:53 Procedure ended. 10:52:53 Full Disclosure recording stopped 10:52:58 End room use (Document Last) Intervention Summary Intervention Notes Time ActionType Lesion and Equipment Used Action# Pressure Duration Attributes 10:44:55 Place stent Mid LAD POPEYE RX 3.0 x 1 17 00:00 12 stent ([id number]) 10:45:04 Reinflate Mid LAD POPEYE RX 3.0 x 2 17 00:00 stent 12 stent balloon ([id number]) Device Usage Item Name Manufacture Quantity Catalog Number Hospital Part Current M inimal Lot# / Charge Number Stock Stock Serial# Code ACIST Syringe Acist 1 44539 370513 920868 179698 2 0 (15515) Medical Systems Inc ACIST Hand Acist 1 10685 220392 246058 631179 5 Control Medical (25542) Systems Inc ACIST Manifold Acist 1 07150 733268 392654 898333 5 (02318) Medical Systems Inc Medline Cath Cardinal 1 [id number] 346427 35501 968086 5 Pack [employer] ([id number]) Bag Decanter Microtek 1 2001S 198331 87728 626287 5 () Medical Inc. DIAGNOSTIC [place] 1 808109 671601 414744 560123 3 0 WIRE .035 260cm J wire (891690) INFLATOR Merit Merit 1 GE6695 877730 422923 427866 1 5 [employer] (WW9643) CHOICE PT [place] 1 [id number] 792070 923360 002242 5 Extra Support Scientific 182cm wire ([id number]) SHEATH 6FR Terumo 1 TKW998 683821 282413 529606 4 0 Powell (PMP235) GUIDE 6FR EBU Medtronic 1 [id number] 984545 33564 379768 1 3.5 SH catheter ([id number]) POPEYE RX 3.0 x Medtronic 1 [id number] 470834 7578740 754998 5 [id number] 12 stent ([id number]) EXOSEAL 6Fr Cardinal 1 EX600 410779 129469 976705 1 0 (EX600) Health Signature Audit [place] Stage Time Signature Unsigned Intra-Procedure 01/04/2018 Kandy Gonzalez 10:54:16 AM RT(R) Signatures Monitor : Kandy Gonzalez Signature : RT Date : Time : [facility] [address] [place] [address]
--- NOTE | ~2018-01-04 | OP ---
PATIENT NAME: BRIAN BARBOSA MEDICAL RECORD: [id number] :69 LOCATION:[facility] ADMISSION DATE: SURGEON: ELLEN LU MD DATE OF OPERATION: 01/04/2018 PROCEDURES: 1. PTCA stent LAD. 2. Left heart catheterization. 3. Selective coronary angiography. 4. Left ventriculogram. INDICATION: Angina and coronary artery disease. PROCEDURE IN DETAIL: After informed consent was obtained and after a detailed explanation of the risks, benefits as well as alternative therapies, the patient elected to proceed with angiogram and angioplasty. The left femoral area was prepped and draped in normal sterile fashion. Left femoral artery was cannulated via modified Seldinger technique with placement of 6-Eritre[place] sheath. All catheters exchanged through this sheath. FINDINGS: The left anterior descending has 80% in-stent restenosis. This was addressed with a 3.0 x 12 mm Doc. Result was 0% residual stenosis. OVERALL IMPRESSION: Successful percutaneous transluminal coronary angioplasty stent of the left anterior descending going from 80% initial stenosis to 0% residual. TRANSINT:[id number] Voice Confirmation ID: [id number] DOCUMENT ID: [id number] ELLEN UL MD at 1403 CC: [id number] DICTATION DATE: 01/04/18 1049 INTERMEDIATE CARD TENDER: 01/04/18 1133 DEP CLI 01/04/[address] [address]
[~2018-01-04 07:38] MED LIST changes: +PREDNISONE20 MG PO
[2018-01-04] MEDS ORDERED: BACLOFEN10 MG PO (08:15)
[2018-01-04] MEDS ORDERED: DEPAKOTE500 MG PO (08:15)
[2018-01-04] MEDS ORDERED: LYRICA200 MG PO (08:16)
[2018-01-04 08:26] VITALS: BP 138/74; Ht 149.9 cm; Wt 61.4 kg
[2018-01-04 08:57] LABS: HEMOGLOBIN 13.1 g/dL (12-16); MCH 31.4 pg (26.0-34.0); MCV 98.3 fL (80.0-100.0); MEAN PLATELET VOLUME 10.3 fL (7.4-10.4); PLATELET COUNT 285 10x3/uL (130-400); RBC 4.17 10x6/uL (4.00-5.40); RDW 14.8 % (11.5-14.5); WBC 9.2 10x3/uL (4.8-10.8)
[2018-01-04 09:10] LABS: CALC OSMOLALITY 283 mosm/kg (275-300); CALCIUM 9.3 mg/dL (8.5-10.1); CHLORIDE - SERUM 104 mmol/L (98-107); CREATININE - SERUM 0.7 mg/dL (0.6-1.3); GLUCOSE 96 mg/dL (74-106); POTASSIUM - SERUM 4.8 mmol/L (3.5-5.1); SODIUM 141 mmol/L (136-145); UREA NITROGEN 22 mg/dL (7-18); eGFR NON AFRICAN AMERICAN > 90 mL/min (90-120)
[2018-01-04 09:47] LABS: HCG SERUM NEGATIVE (NEGATIVE)
[2018-01-04 10:13] LABS: LYMPHOCYTES 48 % (15-50); MONOCYTES 18 % (2-11); NEUTROPHILS 32 % (40-80); PLATELET ESTIMATE NORMAL
[2018-01-12] MEDS ORDERED: LEVAQUIN500 MG PO (18:15)
== END 2018-01-04 15:05 | disposition home or self-care (01) ==
LOC: D.CATH 07:38
PROVIDERS: Internal Medicine Interventional Cardiology
DX: I25.119 Atherosclerotic heart disease of native coronary artery with unspecified angina pectoris (principal); T82.855A Stenosis of coronary artery stent, initial encounter; Z01.812 Encounter for preprocedural laboratory examination

== ENCOUNTER 2018-11-20 10:35 | Emergency (ER) | payer MEDICARE, MEDICAID ==
[~2018-11-20] VITALS: Ht 149.9 cm; Wt 55.5 kg
[~2018-11-20 10:35] MED LIST changes: +BACLOFEN10 MG PO; +DEPAKOTE500 MG PO; +LEVAQUIN500 MG PO
[2018-11-20 10:40] VITALS: Ht 149.9 cm; Wt 55.5 kg
[2018-11-20 11:01] LABS: BASOPHILS 0.3 % (0-2); EOSINOPHILS 0.5 % (0-7); HEMATOCRIT 41.2 % (36.0-48.0); IMMATURE GRANULOCYTES 0.8 % (0-5); LYMPHOCYTES 41.8 % (15-50); MCH 30.8 pg (26.0-34.0); MCV 90.5 fL (80.0-100.0); MEAN PLATELET VOLUME 10.4 fL (7.4-10.4); MONOCYTES 7.8 % (2-11); NEUTROPHILS 48.8 % (40-80); PLATELET COUNT 330 10x3/uL (130-400); RBC 4.55 10x6/uL (4.00-5.40); RDW 13.4 % (11.5-14.5); WBC 10.3 10x3/uL (4.8-10.8)
[2018-11-20 12:31] LABS: APTT 20.9 SECONDS (22.8-39.4); INR 1.03 (0.85-1.17)
[2018-11-20 12:33] LABS: D-DIMER-QUANTITATIVE 0.3 ug/mLFEU (0.20-0.54)
[2018-11-20 12:56] LABS: ALBUMIN 3.7 g/dL (3.4-5.0); ALKALINE PHOSPHATASE 37 U/L (46-116); ALT (SGPT) 26 U/L (10-68); BILIRUBIN - TOTAL 0.26 mg/dL (0.2-1.3); CALC OSMOLALITY 282 mosm/kg (275-300); CALCIUM 9.8 mg/dL (8.5-10.1); CHLORIDE - SERUM 101 mmol/L (98-107); CREATININE - SERUM 0.9 mg/dL (0.6-1.3); GLUCOSE 76 mg/dL (74-106); POTASSIUM - SERUM 4.1 mmol/L (3.5-5.1); PROTEIN - SERUM 7.8 g/dL (6.4-8.2); SODIUM 139 mmol/L (136-145); UREA NITROGEN 30 mg/dL (7-18); eGFR NON AFRICAN AMERICAN 70 mL/min (90-120)
[2018-11-20 13:08] LABS: CKMB 0.6 U/L (0.0-3.6); CREATINE KINASE 62 UL (21-215); MAGNESIUM - SERUM 1.7 mg/dL (1.8-2.4); TROPONIN-I < 0.017 ng/mL (0.000-0.060)
[2018-11-20 13:43] LABS: APPEARANCE CLEAR (CLEAR); BILIRUBIN NEGATIVE (NEGATIVE); GLUCOSE NEGATIVE (NEGATIVE); KETONE NEGATIVE (NEGATIVE); NITRITE NEGATIVE (NEGATIVE); PROTEIN NEGATIVE (NEGATIVE)
[2018-11-20 13:46] LABS: COLOR YELLOW (YELLOW); UROBILINOGEN NORMAL (NORMAL)
[2018-11-20 14:13] VITALS: BP 102/68
== END 2018-11-20 14:16 | disposition home or self-care (01) ==
LOC: D.ER 10:35
PROVIDERS: Family Medicine
DX: R07.9 Chest pain, unspecified (principal); J44.9 Chronic obstructive pulmonary disease, unspecified

== ENCOUNTER 2018-11-24 11:16 | Inpatient (IN) | payer MEDICARE, MEDICAID ==
[~2018-11-24] VITALS: Ht 149.9 cm; Wt 55.5 kg
--- NOTE | ~2018-11-24 | HEMODYNAMI ---
PATIENT:BRIAN BARBOSA MEDICAL RECORD: [id number] : 69 LOCATION:D. D.2119 ADMISSION DATE: 11/24/18 Generatedon:11/25/201813:08 Patient name: BRIAN BARBOSA Patient #: [id number] SSN: : 1965 Date of study: 11/25/2018 Page: Of Hemodynamic Procedure Report Patient Data Patient Demographics Procedure consent was obtained First Name: BRIAN Gender: Female Last Name: CHELSEY : 1965 Middle Initial: M Age: 53 year(s) Patient #: [id number] Race: Additional ID: [id number] Contact details Address: [address] [place] [address] State: [place] City: [facility] Zip code: [address] Past Medical History History of disease Date Diagnosis Comments CAD Allergies Allergen Reaction Date Comments Reported Sulfa drugs 04/26/2015 Contrast 04/26/2015 Iodine 12/31/2017 Sulfa drugs 12/31/2017 Other allergy 01/04/2018 IODINE, SULFA Admission Admission Data Admission Date: 11/24/2018 Admission Time: 11:16 Admit Source: Other Room #: D.2119 Procedure Procedure Types Cath Procedure Diagnostic Procedure [facility] w/Coronaries FFR/IVUS Intra-Coronary IVUS Initial PCI Procedure Coronary Stent Coronary Stent Initial PTCA PTCA Additional Procedure Description Procedure Date Procedure Date: 11/25/2018 Procedure Start Time: 12:42 Procedure End Time: 13:06 Procedure Staff Name Function Abdulkadir Vidales MD Performing Physician Jonathon Cramer RT Monitor Lilibeth Lance RT Scrub Karla Shine RN Nurse Procedure Data Cath Procedure Fluoroscopy Diagnostic fluoroscopy Total fluoroscopy Time: 7.3 time: 7.3 min min Diagnostic fluoroscopy Total fluoroscopy dose: 786 dose: 786 mGy mGy Contrast Material Contrast Material Type Amount (ml) Isovue 370 151 Entry Location Entry Primary Successful Side Size Upsize Upsize Entry Closure Succes sful Closure Location (Fr) 1 (Fr) 2 (Fr) Remarks Device Remarks Femoral Right 5 Fr 6 Fr Exoseal artery Short Diagnostic catheters Device Type Used For End Catheter Placement MULTIPACK Pigtail 5 Fr LV Angiography catheter MULTIPACK JL 4.0 5Fr Left Coronary catheter Angiography MULTIPACK 3DRC 5Fr Right Coronary catheter Angiography Procedure Complications No complications Procedure Medications Medication Administration Route Dosage 0.9% NaCl I.V. 100 ml/hr Oxygen etCO2 Nasal cannula 2 l/min Lidocaine 2% added to field 20 Heparin Flush Bag added to field 2 bags (1000units/500ml NS) Versed I.V. 2 mg Fentanyl I.V. 50 mcg Versed I.V. 2 mg Fentanyl I.V. 50 mcg Heparin Bolus I.V. 4000 units Integrilin (Bolus I.V. 5 ml 2mg/ml) Plavix P.O. 600 mg Hemodynamics Rest Heart Rate: 72 (bpm) Snapshots Pre Cath Intra NCS Post Cath Vital Signs Time Heart Resp SPO2 etCO2 NIBP (mmHg) Rhythm Pain Sedation Rate (ipm) (%) (mmHg) Status Level (bpm) 12:34:31 72 14 100 27 120/101(115) NSR 0 (11) 10(A) , No pain 12:38:32 62 12 100 32.4 132/82(123) NSR 0 (11) 10(A) , No pain 12:42:44 77 12 100 37.7 111/68(94) NSR 0 (11) 10(A) , No pain 12:46:46 83 13 100 28.6 126/79(108) NSR 0 (11) 9(A) , No pain 12:50:56 83 11 100 39.9 123/70(102) NSR 0 (11) 9(A) , No pain 12:55:06 82 11 100 39.1 100/62(91) NSR 0 (11) 9(A) , No pain 12:59:08 83 10 100 39.1 97/66(81) NSR 0 (11) 9(A) , No pain 13:03:07 84 11 100 36.1 105/65(78) NSR 0 (11) 10(A) , No pain Medications Time Medication Route Dose Verified Delivered Reason Notes Effectiveness by by 12:32:27 0.9% NaCl I.V. 100 Abdulkadir Acosta used for ml/hr Sobeida Shine trench shovel operator 12:32:35 Oxygen etCO2 2 Abdulkadir Karla used for Nasal l/min Sobeida Shine procedure cannula RN 12:32:40 Lidocaine 2% added 20ml Abdulkadir Abdulkadir for local to vial Sobeida Vidales MD anesthetic field 12:32:45 Heparin Flush added 2 Abdulkadir Abdulkadir used for Bag to bags Sobeida Vidales MD procedure (1000units/500ml field NS) 12:39:02 Versed I.V. 2 mg Abdulkadir Karla for sedation Sobeida Shine RN 12:39:08 Fentanyl I.V. 50 Abdulkadir Karla for sedation mcg Sobeida Shine RN 12:44:10 Versed I.V. 2 mg Abdulkadir Karla for sedation Sobeida Shine RN 12:44:21 Fentanyl I.V. 50 Abdulkadir Karla for sedation mcg Sobeida Shine RN 12:52:46 Heparin Bolus I.V. 4000 Abdulkadir Karla for verif ied units Sobeida Shine anticoagulation with Dr. MARYCARMEN Vidales 12:52:58 Integrilin I.V. 5 ml Abdulkadir Karla for waste d (Bolus 2mg/ml) Sobeida Shine antiplatelet 5mL RN therapy 12:53:12 Plavix P.O. 600 Abdulkadir Karla for mg Sobeida Shine antiplatelet RN therapy Procedure Log Time Note 12:15:30 Jonathon Cramer RT(R) sent for patient. Start room use. 12:16:06 Admit Source: Other 12:16:28 Diagnostic Cath status Elective 12:16:32 Time tracking: Regular hours (M-F 7:00 - 5:00) 12:16:37 Plan of Care:Hemodynamics will remain stable., Cardiac rhythm will remain stable., Comfort level will be maintained., Respiratory function will remain adequate., Patient/ family verbilizes understanding of procedure., Procedure tolerated without complication., Recovers from procedure without complications.. 12:32:18 Vital chart was started 12:32:24 Patient received from Med II to CCL 2 Alert and oriented. Tansferred to table in Supine position. 12:32:24 Warm blankets applied, and briseida hugger turned on for patient comfort. 12:32:25 Correct patient and procedure confirmed by team. 12:32:26 Signed procedure consent form obtained from patient. 12:32:27 Baseline sample Acquired. 12:32:27 0.9% NaCl 100 ml/hr I.V. was administered by Karla Shine RN; used for procedure; 12:32:27 ECG and BP/O2 sat monitors applied to patient. 12:32:35 Oxygen 2 l/min etCO2 Nasal cannula was administered by Karla Shine RN; used for procedure; 12:32:40 Lidocaine 2% 20ml vial added to field was administered by Abdulkadir Vidales MD; for local anesthetic; 12:32:42 Rhythm: sinus rhythm 12:32:44 Full Disclosure recording started 12:32:45 Heparin Flush Bag (1000units/500ml NS) 2 bags added to field was administered by Abdulkadir Vidales MD; used for procedure; 12:32:49 H&P Date Dictated: 11/25/2018 Within 30 days and on chart., H&P Addendum completed by physician on day of procedure. (MUST COMPLETE FOR ALL OUTPATIENTS). 12:32:51 Pre-procedure instructions explained to patient. 12:32:51 Pre-op teaching completed and patient verbalized understanding. 12:32:52 Family in waiting room. 12:32:53 Patient NPO since Midnight. 12:32:55 Is the patient allergic to Iodine/contrast media? Yes. 12:32:55 Was the patient premedicated? Yes 12:32:57 Is patient on blood thinner?No 12:32:58 Patient diabetic? Yes. 12:32:59 If diabetic: On Metformin? Yes 12:33:02 If on Metformin: Last Dose? 11/24/2018 12:33:05 Previous problem with sedation/anesthesia? No ? 12:33:07 Snore? Yes 12:33:08 Sleep apnea? Yes 12:33:09 Deviated septum? No 12:33:09 Opens mouth fully? Yes 12:33:10 Sticks out tongue? Yes 12:33:19 Airway obstruction? Yes copd emphysema 12:33:22 Dentures? Yes out 12:37:59 Pre procedure: right dorsailis pedis pulse 2+ Normal; easily identifiable; not easily obliterated 12:38:03 Patient pain scale 0/10 ?. 12:38:09 IV patent on arrival in right antecubital with 0.9% NaCl at [facility]. 12:38:11 Lab results completed and on chart. 12:38:15 Right groin area was prepped with chlora-prep and draped in sterile fashion 12:38:15 Alarms reviewed by R. N. 12:38:16 Sharps counted by scrub and verified by R.N. 12:38:18 Physician arrived 12:38:18 --------ALL STOP TIME OUT------ 12:38:19 Final Timeout: patient, procedure, and site verified with staff and physician. All members of the team are in agreement. 12:38:20 Right groin site verified by team. 12:38:24 Maximum allowable Isovue 370 dose 300ml. Physician notified. (300ml for normal creatinines. For patients with creatinine of 1.7 or higher multiply weight(kg) x 5 divided by creatinine.) 12:38:28 Fire Safety Assessment: A--An alcohol-based skin anteseptic being used preoperatively., C--Open oxygen or nitrous oxide is being used., D--An ESU, laser, or fiber-optic light is being used. 12:38:31 Physical assessment completed. ASA score P 2 - A patient with mild systemic disease as per Abdulkadir Vidales MD. 12:38:35 Sedation plan: IV Moderate Sedation Medication:Versed, Fentanyl 12:38:40 Use device set Femoral Dx 12:38:41 ACIST Syringe (41883) opened to sterile field. 12:38:42 Bag Decanter (2002) opened to sterile field. 12:38:42 Medline Cath Pack ([id number]) opened to sterile field. 12:38:42 DIAGNOSTIC WIRE .035 260cm J wire (682049) opened to sterile field. 12:38:44 ACIST Hand Control (75904) opened to sterile field. 12:38:44 ACIST Manifold (49832) opened to sterile field. 12:38:45 DIAGNOSTIC Multipack 5Fr catheter set (II9658) opened to sterile field. 12:38:45 Tegaderm 4 x 4 (1626W) opened to sterile field. 12:38:47 SHEATH 5FR [place] (MWJ734) opened to sterile field. 12:39:02 Versed 2 mg I.V. was administered by Karla Shine RN; for sedation; 12:39:08 Fentanyl 50 mcg I.V. was administered by Karla Rl RN; for sedation; 12:41:45 Zero performed for pressure channel P1 12:42:29 Procedure started. 12:42:39 Local anesthetic to right femoral artery with Lidocaine 2% by Abdulkadir Vidales MD.INITIAL ACCESS ONLY 12:42:47 A 5 Fr sheath was inserted into the Right Femoral artery 12:44:10 Versed 2 mg I.V. was administered by Karla Shine RN; for sedation; 12:44:21 Fentanyl 50 mcg I.V. was administered by Karla Shine RN; for sedation; 12:46:37 A MULTIPACK Pigtail 5 Fr catheter was advanced over the wire and used for LV Angiography. 12:46:44 LV angiography performed. 12:47:05 EF : 55 % 12:47:08 LV gram done using GRIMALDO 12:47:12 Catheter removed. 12:47:17 A MULTIPACK JL 4.0 5Fr catheter was advanced over the wire and used for Left Coronary Angiography. 12:47:55 LCA angiography performed. 12:48:08 CHOICE PT Extra Support 182cm wire ([id number]) opened to sterile field. 12:48:20 SHEATH 6FR [place] (KFB782) opened to sterile field. 12:48:21 Baring [place] Eag[place] IVUS Catheter (10797B) opened to sterile field. 12:48:28 GUIDE 6FR XBLAD 3.5 SH catheter ([id number]) opened to sterile field. 12:48:34 EXOSEAL 6Fr (EX600) opened to sterile field. 12:48:40 Catheter removed. 12:48:46 A MULTIPACK 3DRC 5Fr catheter was advanced over the wire and used for Right Coronary Angiography. 12:48:48 RCA angiography performed. 12:49:01 Catheter removed. 12:49:06 Sheath upsized to a 6 Fr Short. 12:49:22 GUIDE 6FR HS I SH catheter ([id number]) opened to sterile field. 12:49:36 INFLATOR Merit BasixCompak (GP2331) opened to sterile field. 12:49:45 Procedure type changed to Cath procedure, Diagnostic procedure, LHC, LHC w/Coronaries, FFR/IVUS, Intra-Coronary IVUS Initial, PCI procedure, Coronary Stent, Coronary Stent Initial, PTCA, PTCA Additional 12:50:39 6 Fr HS 1 SH guide catheter was inserted over the wire 12:50:53 CPTES wire advanced. 12:52:46 Heparin Bolus 4000 units I.V. was administered by Karla Shine RN; for anticoagulation; verified with Dr. Vidales 12:52:58 Integrilin (Bolus 2mg/ml) 5 ml I.V. was administered by Karla Shine RN; for antiplatelet therapy; wasted 5mL 12:53:12 Plavix 600 mg P.O. was administered by Karla Shine RN; for antiplatelet therapy; 12:54:42 FFR/IVUS 12:54:42 FFR/IVUS 12:54:43 IVUS catheter advanced over wire. 12:54:45 IVUS pass to RCA lesion performed. 12:54:47 IVUS catheter removed over wire. 12:56:15 Place stent Inflation Number: 1 A POPEYE RX 2.0 x 8 stent ([id number]) was prepped and advanced across the R PDA. The stent was deployed at 13 JAROD for 0:10 (min:sec). 12:56:22 Stent catheter was removed intact over wire. 12:57:06 Place stent Inflation Number: 1 A POPEYE RX 3.0 x 38 stent ([id number]) was prepped and advanced across the Prox RCA. The stent was deployed at 13 JAROD for 0:25 (min:sec). 12:57:31 Stent catheter was removed intact over wire. 12:58:58 Place stent Inflation Number: 1 A POPEYE RX 3.0 x 15 stent ([id number]) was prepped and advanced across the Mid RCA. The stent was deployed at 13 JAROD for 0:12 (min:sec). 12:59:09 Inflation number: 2 The stent balloon was then re-inflated across the Mid RCA to 7 JAROD for 0:10 (min:sec). 12:59:40 Inflation number: 3 The stent balloon was then re-inflated across the Mid RCA to 15 JAROD for 0:14 (min:sec). 13:00:01 Inflation number: 4 The stent balloon was then re-inflated across the Mid RCA to 19 JAROD for 0:11 (min:sec). 13:00:30 Wire removed. 13:00:47 Wire redirected to PAV. 13:03:11 Inflation number: 2 The stent balloon was then re-inflated across the R PDA to 13 JAROD for 0:06 (min:sec). 13:03:22 Inflation number: 3 The stent balloon was then re-inflated across the R PDA to 15 JAROD for 0:10 (min:sec). 13:03:28 Wire removed. 13:03:30 Balloon removed over the wire. 13:03:33 Guide catheter removed. 13:03:40 Contrast amount:Isovue 370 151ml. 13:03:46 Sheath removed intact; hemostasis achieved with Exoseal to the Right Femoral artery. 13:04:40 Procedure ended.(Physican Out) 13:04:53 Fluoroscopy time 07.30 minutes. 13:04:57 Fluoroscopy dose: 786 mGy 13:04:57 Flurop Dose total: 786 13:04:59 Sharps counted by scrub and verified by R.N. 13:04:59 Insertion/operative site no bleeding no hematoma. 13:05:02 Post-op/insertion site Right Femoral artery dressed using a 4 x 4 and Tegaderm. 13:05:05 Post right femoral artery:stable 13:05:06 Post Procedure Pulses reassessed and unchanged 13:05:06 Post Procedure Pulses reassessed and unchanged 13:05:09 Post procedure: right dorsailis pedis pulse 2+ Normal; easily identifiable; not easily obliterated. 13:05:11 Post procedure rhythm: unchanged. 13:05:13 Post procedure instruction explained to patient.Patient verbalizes understanding. 13:05:14 Procedure and supply charges have been captured, reviewed, submitted and are correct. 13:06:07 Procedure Complication : No complications 13:06:09 Vital chart was stopped 13:06:10 See physician's report for complete and final results. 13:06:14 Report given to PCU. 13:06:16 Patient transfered to PCU with Bed. 13:06:18 Procedure ended. 13:06:18 Full Disclosure recording stopped 13:06:21 End room use (Document Last) Intervention Summary Intervention Notes Time ActionType Lesion and Equipment Used Action# Pressure Duration Attributes 12:56:15 Place stent R PDA POPEYE RX 2.0 x 1 13 00:10 8 stent ([id number]) 12:57:06 Place stent Prox RCA POPEYE RX 3.0 x 1 13 00:25 38 stent ([id number]) 12:58:58 Place stent Mid RCA POPEYE RX 3.0 x 1 13 00:12 15 stent ([id number]) 12:59:09 Reinflate Mid RCA POPEYE RX 3.0 x 2 7 00:10 stent 15 stent balloon ([id number]) 12:59:40 Reinflate Mid RCA POPEYE RX 3.0 x 3 15 00:14 stent 15 stent balloon ([id number]) 13:00:01 Reinflate Mid RCA POPEYE RX 3.0 x 4 19 00:11 stent 15 stent balloon ([id number]) 13:03:11 Reinflate R PDA POPEYE RX 2.0 x 2 13 00:07 stent 8 stent balloon ([id number]) 13:03:22 Reinflate R PDA POPEYE RX 2.0 x 3 15 00:10 stent 8 stent balloon ([id number]) Device Usage Item Name Manufacture Quantity Catalog Number Hospital Part Current M inimal Lot# / Charge Number Stock Stock Serial# Code ACIST Syringe Acist 1 15543 709922 090196 770898 2 0 (86269) Medical Systems Inc Bag Decanter Microtek 1 661497 88164 679203 5 () Medical Inc. Medline Cath Medline 1 [id number] 376128 53962 423195 5 Pack ([id number]) DIAGNOSTIC St Moiz 1 217822 884947 261953 333348 3 0 WIRE .035 260cm J wire (426107) ACIST Hand Acist 1 93998 385965 833889 886259 5 Control Medical (35336) Systems Inc ACIST Manifold Acist 1 58957 007182 406482 024491 5 (34602) Medical Systems Inc DIAGNOSTIC Cardinal 1 ID3661 485616 16980 730161 3 0 Multipack 5Fr Health catheter set (YX1823) Tegaderm 4 x 4 3M 1 1626W 575002 624668 769739 5 (1626W) SHEATH 5FR Terumo 1 PUA675 690773 921459 664682 5 [place] (QFH260) MULTIPACK Cardinal 1 188321 5 Pigtail 5 Fr Health catheter MULTIPACK JL Cardinal 1 786344 5 4.0 5Fr Health catheter CHOICE PT Roland 1 [id number] 226900 831003 425448 5 Extra Support Scientific 182cm wire ([id number]) SHEATH 6FR Terumo 1 NGZ373 047325 625631 419211 4 0 [place] (EXR628) Baring Baring 1 22882F 515520 907294 359590 8 [place] IVUS Catheter (21044L) GUIDE 6FR Cardinal 1 [id number] 785791 112265 774957 3 XBLAD 3.5 SH Health catheter (99833406) EXOSEAL 6Fr Cardinal 1 EX600 396658 493388 441459 1 0 (EX600) Health MULTIPACK 3DRC Cardinal 1 099390 5 5Fr catheter Health GUIDE 6FR HS I Medtronic 1 [id number] 433107 79499 777762 1 SH catheter ([id number]) INFLATOR Merit Merit 1 WD4312 538813 509692 293148 1 5 Restore [employer] Medical (JX6308) POPEYE RX 2.0 x Medtronic 1 [id number] 137337 7796021 805598 5 [id number] 8 stent ([id number]) POPEYE RX 3.0 x Medtronic 1 [id number] 253484 6006779 048459 5 [id number] 38 stent ([id number]) POPEYE RX 3.0 x Medtronic 1 [id number] 401176 6821251 371404 5 [id number] 15 stent ([id number]) Signature Audit Dieterich Stage Time Signature Unsigned Intra-Procedure 11/25/2018 Jonathon Cramer RT(R) 1:08:34 PM Signatures Monitor : Jonathon Cramer RT Signature : Date : Time : [facility] [address] [place] [address]
--- NOTE | ~2018-11-24 | OP ---
PATIENT NAME: BRIAN BARBOSA MEDICAL RECORD: [id number] :69 LOCATION:D.M2 D.2119 ADMISSION DATE:11/24/18 SURGEON: ELLEN LU MD DATE OF OPERATION: 11/25/2018 PROCEDURES: 1. PTCA stent RCA. 2. PTCA stent RCA PDA. 3. PTCA RCA PLV. 4. Left heart catheterization. 5. Selective coronary angiography. 6. Left ventriculogram. 7. Intravascular ultrasound. INDICATION: Angina and coronary artery disease. PROCEDURE IN DETAIL: After informed consent was obtained and after a detailed description of risks, benefits as well as alternative therapies, the patient elected to proceed with angiogram and angioplasty. The right femoral area was prepped and draped in normal sterile fashion. Right femoral artery was cannulated via modified Seldinger technique with placement of 6-Indonesian sheath. All catheters exchanged through this sheath. FINDINGS: The left ventriculogram was performed in standard 30-degree GRIMALDO view, reveals good cardiac wall motion throughout all segments. Overall ejection fraction 55%. SELECTIVE CORONARY ANGIOGRAPHY: 1. Left main is with no significant angiographic disease. 2. Left anterior descending has previously placed stents. There is 50% to 70% in-stent restenosis in the proximal vessel. 3. Left circumflex has 50% to 70% stenosis in the mid vessel. 4. The right coronary artery has previously placed stents. Between the stented area, there is greater than 80% stenosis confirmed by intravascular ultrasound. PTCA STENT OF THE RCA: The PDA was 90% stenosed. This was addressed with a 2.0 x 8 mm Cohagen. Result was 0% residual stenosis. The RCA was addressed with a 3.0 x 38 and 3.0 x 15, both Cohagen stents. Result was 0% residual stenosis. There was plaque shift into the PLV. This was addressed with a 2.0 balloon. Result was 0% residual throughout. OVERALL IMPRESSION: Successful percutaneous transluminal coronary angioplasty stent of the right coronary artery going from 80% to 90% initial stenosis to 0% residual. TRANSINT:[id number] Voice Confirmation ID: [id number] DOCUMENT ID: [id number] OPERATIVE REPORT [id number] BRIAN BARBOSA ELLEN LU MD CC: [id number] DICTATION DATE: 11/25/18 1309 BOX FOLDING MACHINE OPERATOR: 11/25/18 1323 ADM IN [address] [place] [address]
--- NOTE | ~2018-11-24 | DS ---
PATIENT:BRIAN SAINZ :69 MEDICAL RECORD: [id number] DISCHARGE SUMMARY ADMISSION DATE: 11/24/18 DISCHARGE DATE: 11/25/18 DATE OF SERVICE: 11/25/2018 DIAGNOSES: 1. Unstable angina. 2. Coronary artery disease. 3. PTCA and stent of RCA this admission. 4. Chronic obstructive pulmonary disease. 5. Smoking history. HOSPITAL COURSE: Ms. Sainz presented with anginal symptomatology, found to have critical disease of the RCA, underwent successful PTCA and stent of the RCA, had no further anginal symptomatology. She was markedly improved. Discharged home with the addition of Plavix to her medical regimen. She will follow up with [facility] in 1 month. TRANSINT:[id number] Voice Confirmation ID: [id number] DOCUMENT ID: [id number] ELLEN LU MD CC: [id number] DICTATION DATE: 11/25/18 1307 PRINTING ASSISTANT: 11/26/18 0745 DIS IN 11/25/18 [place] [id number] [place] [id number]
--- NOTE | 2018-11-24 12:00 | NUR ---
RECEIVED PT FROM DR LU'S OFFICE THRU ADMISSIONS VIA W/C WITH C/O CHEST PAIN PT AAOX4 RESP UNLABORED SKIN W/D STATE PAIN 02/08 ACCESSED SALINE LOCK TO RFA WITH 22 GA IV CATHETER X1 STICK USING ASEPTIC TECHNIQUE PT TOLWERATED WELL
[2018-11-24] MEDS ORDERED: ZOLOFT25 MG PO (12:14)
[2018-11-24] MEDS ORDERED: BACLOFEN10 MG PO (12:15)
[2018-11-24] MEDS ORDERED: AMOXICILLIN875 MG PO (12:21)
[2018-11-24 12:40] VITALS: BP 86/55; Ht 149.9 cm; Wt 55.5 kg
[2018-11-24 16:00] VITALS: BP 116/44
--- NOTE | 2018-11-24 19:30 | NUR ---
RESUMING PATIENT CARE. PATIENT IS ALERT AND ORIENTED. RESPIRATIONS ARE EVEN AND UNLABORED. PATIENT VISITOR CAME TO NURSES STATION, STATING THAT THE PATIENT WANTED. HE LYRICA AND GABAPENTIN. I WENT TO PATIENT ROOM AND EXPLAINED TO THE PATIENT AND VISTOR THAT THOSE MEDICATIONS ARE SCHEDULED FOR 2100 AND THAT I WOULD GIVE THOSE AND OTHER HS MEDS SOON POSSIBLE. NO S/S OF DISTRESS. NO C/O PAIN. CALL LIGHT WITHIN REACH. WILL CPOC. APPROX. 30 TO 45 MINUTES. RECEIVED A PHONE CALL FROM THE PATIENT "DAUGHTER" WHOM BECAME UPSET WHEN TOLD THAT PER HIPPA I COULD NOT GIVE HER ANY INFORMATION. PLACED CALLER ON HOLD WENT TO PATIENT ROOM TOLD HER THAT DAUGHTER WAS ON THE PHONE. I EXPLAINED THE PATIENT I COULD NOT GIVE HER "DAUGHTER" INFORMATION WITHOUT HER PERMISSION. PATIENT ASKED ME TO TRANSFER THE CALL TO HER ROOM. CALLED TRANSFERRED.
--- NOTE | 2018-11-24 21:30 | NUR ---
DURING SHIFT ASSESSMENT NOTICED THAT PATIENT HAD A BRACE ON HER LEFT WRIST. PATIENT STATED THAT SHE HAD INJURED HER WRIST AT HOME, SHE WAS ONLY USING THE BRACE FOR SUPPORT.
[2018-11-24 22:57] VITALS: BP 103/57
[2018-11-25] VITALS: BP 120/68
--- NOTE | 2018-11-25 02:09 | NUR ---
PATIENT RESTING COMFORTABLY IN BED. RESPIRATIONS ARE EVEN AND UNLABORED. NO S/S OF DISTRESS. CALL LIGHT WITHIN REACH. WILL CPOC.
--- NOTE | 2018-11-25 05:43 | NUR ---
WHEN ROUNDING ON PATIENT, SHE ASKED FOR A PAIN PILL. I EXPLAINED THAT I NEEDED TO GET BLOOD PRESSURE FIRST. SINCE HER BLOOD PRESSURE HAD BEEN RUNNING LOW EARLY IN THE SHIIFT. PATIENT BECAME ANGRY AND THEN EXTREMELY TEARFUL. BLOOD PRESSURE WAS TAKEN AND PAIN MEDICATION WAS GIVEN.
--- NOTE | 2018-11-25 07:30 | NUR ---
RECEIVED PT IN BED AAOX4 RESP UNLABORED SKIN W/D COLOR WNL DENIES ANY NEEDS OR DISCOMFORT AT THIS TIME
[2018-11-25 08:22] VITALS: BP 110/62
[2018-11-25 12:12] VITALS: BP 141/79
--- NOTE | 2018-11-25 13:36 | NUR ---
RECEIVED PT FROM TELEVISION TUBE INSPECTOR, PT VERY SLEEPY. RESP WITH EASE ON ROOM AIR. DRESSING CDI TO RIGHT GROIN, AREA IS SOFT AND NONTENDER. PEDAL PULSES PALPABLE. NSR, RATE IS 79, BP IS 109/81. SAT IS 94% ON ROOM AIR. HOB IS FLAT. CALL LIGHT IN REACH.
--- NOTE | 2018-11-25 13:53 | NUR ---
PT SLEEPING, RESP WITH EASE, SAT IS 93% ON ROOM AIR. NSR, RATE 77, BP IS 105/65. DRESSING CDI TO RIGHT GROIN, AREA IS SOFT WITH NO HEMATOMA NOTED. PEDAL PULSES PALPABLE. CALL LIGHT IN REACH. HOB IS FLAT.
--- NOTE | 2018-11-25 14:29 | NUR ---
PT VERY DROWSY, AWAKENS TO VERBAL/ TACTICLE STIMULI. DENIES ANY C/O PAIN OR NAUSEA. KIM SIPS OF SODA. REQUESTS BEDPAN TO VOID AND THIS PLACED UNDER PT WITH ASSIST X2 NURSES. DRESSING CDI TO RIGHT GROIN, PEDAL PULSES PALPABLE. NSR, RATE 72, SAT IS 95% ON ROOM AIR.
--- NOTE | 2018-11-25 14:53 | NUR ---
PT BACK TO SLEEP, IS DIFFICULT TO AROUSE VIA TACTILE/ VERBAL STIMULI. NSR, RATE IS 75. BP IS 116/67, RR 13 WITH SAT OF 95%. DRESSING CDI TO RIGHT GROIN, AREA IS SOFT AND NONTENDER. PEDAL PULSES PALPABLE. ABG'S ORDERED, RESP NOTIFIED.
--- NOTE | 2018-11-25 15:18 | NUR ---
ABG'S DRAWN, PT AWAKE NOW, REQUESTED BEDPAN AGAIN. DENIES ANY C/O PAIN OR NAUSEA. KIM SIPS OF DIET SODA. STATES HAD EYE SURGERY RECENTLY AND OVERHEAD LIGHTS HURT HER EYES SO SHE PREFERS TO KEEP THEM CLOSED. PT FALLS BACK TO SLEEP EASILY, VSS. DRESSING CDI TO RIGHT GROIN, AREA IS SOFT AND NONTENDER.
--- NOTE | 2018-11-25 15:32 | NUR ---
REPORT CALLED TO CLYDE EVERETT RN.
--- NOTE | 2018-11-25 15:54 | NUR ---
1545 PT AWAKE AND KIM SIPS OF SODA. DRESSING CDI, PEDAL PULSES PALPABLE. PT DENIES ANY C/O. WAS NOT ABLE TO VOID AND BEDPAN REMOVED. PT TRANSFERRED BACK TO PCU VIA CLYDE OTOOLE AT BEDSIDE TO RECEIVE PT.
[2018-11-25] MEDS ORDERED: PLAVIX75 MG PO (15:58)
[2018-11-25 16:36] VITALS: BP 107/65
--- NOTE | 2018-11-25 16:47 | MORECARE ---
CASE MANAGEMENT DISCHARGE SUMMARY PATIENT: BRIAN BARBOSA UNIT: [id number] ADM DATE: 11/24/18 AGE: 53 : 69 SEX: F ROOM/BED: D.9099 AUTHOR: JONATHON BELTRAN PHYSICIAN: REFERRING PHYSICIAN: ELLEN LU MD DATE OF SERVICE: 11/25/18 Discharge Plan Patient Name: BRIAN BARBOSA Facility: [facility]:[place] : 1965 Planned Disposition: Home Anticipated Discharge Date: 11/25/18 Discharge Date: Expected LOS: 1 Initial Reviewer: [email or web address] Initial Review Date: 11/24/2018 Generated: 11/25/18 5:47 pm Patient Name: BRIAN BARBOSA Page [id number] at 1647 All edits/amendments must be made on the electronic document DICTATION DATE: 11/25/181645 UNDERCOLLAR MAKER: RONNA 11/25/181645 RPT#: [id number] DC DATE: STATUS: ADM IN [facility] [address] [place] [address] END OF REPORT
--- NOTE | 2018-11-25 16:56 | MORECARE ---
CASE MANAGEMENT DISCHARGE SUMMARY PATIENT: BRIAN BARBOSA UNIT: [id number] ADM DATE: 11/24/18 AGE: 53 : 69 SEX: F ROOM/BED: D.1599 AUTHOR: JONATHON BELTRAN PHYSICIAN: REFERRING PHYSICIAN: ELLEN LU MD DATE OF SERVICE: 11/25/18 Discharge Plan Patient Name: BRIAN BARBOSA [facility] [facility] 1965 Planned Disposition: Home Anticipated Discharge Date: 11/25/18 Discharge Date: Expected LOS: 1 Initial Reviewer: [email or web address] Initial Review Date: 11/24/2018 Generated: 11/25/18 5:55 pm Last DP export: 11/25/18 3:47 p Patient Name: BRIAN BARBOSA Page 49549 at 1656 All edits/amendments must be made on the electronic document DICTATION DATE: 11/25/181654 OBSTETRICS TEACHER: RONNA 11/25/181654 RPT#: [id number] DC DATE: STATUS: ADM IN [facility] [address] [place] [address] END OF REPORT
--- NOTE | 2018-11-25 17:03 | MORECARE ---
CASE MANAGEMENT DISCHARGE SUMMARY PATIENT: BRIAN BARBOSA UNIT: [id number] ADM DATE: 11/24/18 AGE: 53 : 69 SEX: F ROOM/BED: D.4617 AUTHOR: JONATHON BELTRAN PHYSICIAN: REFERRING PHYSICIAN: ELLEN LU MD DATE OF SERVICE: 11/25/18 Discharge Plan Patient Name: BRIAN BARBOSA Facility: [facility]:[place] : 1965 Planned Disposition: Home Anticipated Discharge Date: 11/25/18 Discharge Date: Expected LOS: 1 Initial Reviewer: [email or web address] Initial Review Date: 11/24/2018 Generated: 11/25/18 6:03 pm Comments DCP- Discharge Planning Updated by [email or web address]: Jason Deal on 11/25/18 3:[address] Patient Name: BRIAN BARBOSA Encounter No: [id number] : 1965 Primary Insurance: [employer] Anticipated DC Date: 11-25-2018 Planned Disposition: Home DISCHARGE PLANNING NOTE: CM ADVISED THAT PT WILL NEED RIDE HOME AT DISCHARGE TODAY. CM REVIEWED CHART, PT HAS MEDICAID, MEDICAID TRANSPORT IS NOT GOING TO BE AVAILABLE AT THE HOUR OF DISCHARGE NOR WILL THE [employer] BUS. CM ATTEMPTED TO MEET WITH PT, PT STILL SEDATED AND UNABLE TO PARTICIPATE IN DISCHARGE PLANNING. CM CALLED PT'S EMERGENCY CONTACT, DAUGHTER MARTA NICHOLS, . MARTA WILL TRY TO CONTACT A FRIEND OF PT IN [place] TO BUSINESS ENTERPRISE OFFICER PT TONIGHT. CM RECEIVED RETURN CALL FROM MARTA WHO INFORMED CM THAT PT'S FRIEND, GABRIELLE, WILL BUSINESS ENTERPRISE OFFICER PT TONIGHT FOR DISCHARGE HOME BETWEEN 5:30PM AND 5:45PM. CM LEFT NOTE FOR BEDSIDE NURSE. Jason Deal, CASE MANAGEMENT Last DP export: 11/25/18 3:55 p Patient Name: BRIAN BARBOSA Page [id number] at 1703 All edits/amendments must be made on the electronic document DICTATION DATE: 11/25/181702 CARE TRANSPORT NURSE: RONNA 11/25/181702 RPT#: [id number] DC DATE: STATUS: ADM IN [facility] [address] [place] [address] END OF REPORT
== END 2018-11-25 19:08 | disposition home or self-care (01) | DRG 247 ==
LOC: D.SDCHOLD 11:16 → D.M2 11:16
PROVIDERS: ADMIT Internal Medicine Interventional Cardiology; ATTEND Internal Medicine Interventional Cardiology
PROC: 027135Z Dilation of Coronary Artery, Two Arteries with Two Drug-eluting Intraluminal Devices, Percutaneous Approach (ICD-10-PCS; principal; 2018-11-25 12:15)
PROC: 02703ZZ Dilation of Coronary Artery, One Artery, Percutaneous Approach (ICD-10-PCS; 2018-11-25 12:15)
DX: I25.110 Atherosclerotic heart disease of native coronary artery with unstable angina pectoris (principal); J44.9 Chronic obstructive pulmonary disease, unspecified; F17.200 Nicotine dependence, unspecified, uncomplicated
CPT/HCPCS: 93458; C9600; C9601; 92921; 92978

== ENCOUNTER → 2019-04-25 09:40 | Outpatient (CLI) | payer MEDICARE, MEDICAID ==
[2018-11-24 12:40] VITALS: BMI 24.7
[~2019-04-25 09:40] MED LIST changes: +AMOXICILLIN875 MG PO; +ZOLOFT25 MG PO
[2019-04-25 10:39] LABS: BASOPHILS 0.3 % (0-2); EOSINOPHILS 1.1 % (0-7); HEMATOCRIT 39.9 % (36.0-48.0); HEMOGLOBIN 12.7 g/dL (12-16); IMMATURE GRANULOCYTES 0.6 % (0-5); LYMPHOCYTES 45.6 % (15-50); MCH 28.6 pg (26.0-34.0); MCHC 31.8 g/dL (31.0-37.0); MCV 89.9 fL (80.0-100.0); MEAN PLATELET VOLUME 9.9 fL (7.4-10.4); NEUTROPHILS 42.4 % (40-80); PLATELET COUNT 361 10x3/uL (130-400); RBC 4.44 10x6/uL (4.00-5.40); RDW 15.3 % (11.5-14.5); WBC 6.6 10x3/uL (4.8-10.8)
[2019-04-25 10:47] LABS: APTT 28.9 SECONDS (22.8-39.4); INR 0.95 (0.85-1.17); PROTIME 12.2 SECONDS (11.6-15.0)
[2019-04-25 10:50] LABS: % SATURATION 15 % (15-55); IRON 89 ug/dl (35-150); TOTAL IRON BIND CAPACITY 587 ug/dl (260-445)
[2019-04-25 10:52] LABS: UNSAT IRON BIND CAPACITY 498 ug/dl (150-375)
[2019-04-25 11:43] LABS: ERYTHROCYTE SEDIMENTATION RATE 50 mm/hr (0-30)
== END | disposition home or self-care (01) ==
LOC: D.LAB 09:40
PROVIDERS: ATTEND Internal Medicine Hematology & Oncology
DX: D72.89 Other specified disorders of white blood cells (principal); E11.9 Type 2 diabetes mellitus without complications; M79.7 Fibromyalgia; J44.9 Chronic obstructive pulmonary disease, unspecified

== ENCOUNTER 2019-07-14 16:12 | Inpatient (IN) | payer MEDICARE, MEDICAID ==
[~2019-07-14] VITALS: Ht 149.9 cm; Wt 54.4 kg
[2019-07-14 16:31] VITALS: BP 132/72
[2019-07-14 17:16] LABS: BASOPHILS 0.4 % (0-2); EOSINOPHILS 0.2 % (0-7); HEMATOCRIT 36.4 % (36.0-48.0); HEMOGLOBIN 11.2 g/dL (12-16); LYMPHOCYTES 31.6 % (15-50); MCH 27.7 pg (26.0-34.0); MCHC 30.8 g/dL (31.0-37.0); MCV 89.9 fL (80.0-100.0); MEAN PLATELET VOLUME 9.5 fL (7.4-10.4); MONOCYTES 15.8 % (2-11); RBC 4.05 10x6/uL (4.00-5.40); RDW 15.8 % (11.5-14.5); WBC 8.6 10x3/uL (4.8-10.8)
[2019-07-14 17:18] LABS: PLATELET COUNT 488 10x3/uL (130-400)
[2019-07-14 17:23] LABS: APTT 25.6 SECONDS (22.8-39.4); CALC OSMOLALITY 278 mosm/kg (275-300); CALCIUM 8.9 mg/dL (8.5-10.1); CARBON DIOXIDE 26.9 mmol/L (21.0-32.0); CHLORIDE - SERUM 101 mmol/L (98-107); CREATININE - SERUM 0.8 mg/dL (0.6-1.3); GLUCOSE 106 mg/dL (74-106); INR 0.99 (0.85-1.17); POTASSIUM - SERUM 3.3 mmol/L (3.5-5.1); PROTIME 12.6 SECONDS (11.6-15.0); SODIUM 139 mmol/L (136-145); UREA NITROGEN 15 mg/dL (7-18); eGFR NON AFRICAN AMERICAN 80 mL/min (90-120)
[2019-07-14 17:25] LABS: D-DIMER-QUANTITATIVE 0.84 ug/mLFEU (0.20-0.54)
[2019-07-14 17:55] LABS: ALKALINE PHOSPHATASE 43 U/L (46-116); ALT (SGPT) 18 U/L (10-68); BILIRUBIN - TOTAL 0.15 mg/dL (0.2-1.3); CKMB 3.7 U/L (0.0-3.6); CREATINE KINASE 136 UL (21-215); MAGNESIUM - SERUM 1.6 mg/dL (1.8-2.4); PRO BNP 558 pg/mL (0-125); PROTEIN - SERUM 7.6 g/dL (6.4-8.2)
[2019-07-14 17:57] LABS: TROPONIN-I < 0.017 ng/mL (0.000-0.060)
--- NOTE | 2019-07-14 19:30 | MORECARE ---
CASE MANAGEMENT DISCHARGE SUMMARY PATIENT: BRIAN BARBOSA UNIT: [id number] ADM DATE: 07/14/19 AGE: 54 : 69 SEX: F ROOM/BED: D.2130 AUTHOR: JONATHON BELTRAN PHYSICIAN: REFERRING PHYSICIAN: FERMIN MONTAÑO MD DATE OF SERVICE: 07/14/19 Discharge Plan Patient Name: BRIAN BARBOSA Facility: [facility]:[place] : 1965 Planned Disposition: Anticipated Discharge Date: Discharge Date: Expected LOS: Initial Reviewer: [email or web address] Initial Review Date: 07/14/2019 Generated: 07/14/19 8:30 pm Comments DCP- Discharge Planning Updated by [email or web address]: Chante Mccrary on 07/14/19 6:[address] CM met with patient to discuss initial discharge planning. Patient is in agreement to proceed with assessment. Patient is alert/oriented. Patient lives in an apartment, alone. Stairs/steps: None. PCP: Dr. Fleming, . Pharmacy: [place] w/delivery. HHS: No. [facility] Agency on Aging. She has an aide 4 days /week for personal care, light house keeping, grocery shopping. DME: Home O2 @[facility]--states she has been using it 22/02 this past week. Patient gives permission to speak with family member. Emergency contact: (daughter) Emelyn Prakash @[phone], lives in [place]. Requires partial assist with bathing, dressing, house work, shopping. CM discussed the availability of HH, Rehab, DME services. Patient denies the need for additional services at this time and feels safe returning to previous environment. Patient denies being hospitalized within the past 30 days. 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 Receives a SSD check, but no other services. Transportation at time of discharge: Patient states she will take a taxi and has the money to pay for it. CM will follow and assist with further dc planning PRN. Patient Name: BRIAN BARBOSA Page [phone] at 1930 All edits/amendments must be made on the electronic document DICTATION DATE: 07/14/191929 PRODUCT DEVELOPMENT COORDINATOR: RONNA 07/14/191929 RPT#: [id number] DC DATE: STATUS: ADM IN [facility] [address] [place] [address] END OF REPORT
--- NOTE | 2019-07-14 19:37 | MORECARE ---
CASE MANAGEMENT DISCHARGE SUMMARY PATIENT: BRIAN BARBOSA UNIT: [id number] ADM DATE: 07/14/19 AGE: 54 : 69 SEX: F ROOM/BED: D.2130 AUTHOR: DEVIN,DOC PHYSICIAN: REFERRING PHYSICIAN: FERMIN MONTAÑO MD DATE OF SERVICE: 07/14/19 Discharge Plan Patient Name: BRIAN BARBOSA Facility: [facility]:[place] : 1965 Planned Disposition: Anticipated Discharge Date: Discharge Date: Expected LOS: Initial Reviewer: [email or web address] Initial Review Date: 07/14/2019 Generated: 07/14/19 8:36 pm Comments DCP- Discharge Planning Updated by [email or web address]: Chante Mccrary on 07/14/19 6:[address] CM met with patient to discuss initial discharge planning. Patient is in agreement to proceed with assessment. Patient is alert/oriented. Patient lives in an apartment, alone. Stairs/steps: None. PCP: LURDES Nathan. Pharmacy: [facility] w/delivery. HHS: No. [facility] Agency on Aging. She has an aide 4 days /week for personal care, light house keeping, grocery shopping. DME: Home O2 @[facility]--states she has been using it 22/02 this past week. Patient gives permission to speak with family member. Emergency contact: (daughter) Emelyn Prakash @[phone], lives in [place]. Requires partial assist with bathing, dressing, house work, shopping. CM discussed the availability of HH, Rehab, DME services. Patient denies the need for additional services at this time and feels safe returning to previous environment. Patient denies being hospitalized within the past 30 days. 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 Receives a SSD check, but no other services. Transportation at time of discharge: Patient states she will take a taxi and has the money to pay for it. CM will follow and assist with further dc planning PRN. DCPIA - Discharge Planning Initial Assessment Updated by [email or web address]: Chante Mccrary on 07/14/19 7:34 pm * Is the patient Alert and Oriented? Yes * How many steps to enter\exit or inside your home? * PCP Dr. stevenson * Pharmacy [facility] w/delivery * Preadmission Environment Home Alone * ADLs Partial Dependent * Partial ADLs (Assistance needed) Bathing Dressing * Equipment Nebulizer * Other Equipment O2 @[facility], Nebulizer, Cane, Walker, Shower Chair * List name and contact numbers for known caregivers / representatives who currently or will assist patient after discharge: Emelyn Prakash (daughter) [phone] * Verbal permission to speak to the caregivers and representatives has been obtained from the patient. Yes * Community resources currently utilized Private Duty Care * Please name any agencies selected above. [facility] on A[facility] * Additional services required to return to the preadmission environment? No * Can the patient safely return to the preadmission environment? Yes * Has this patient been hospitalized within the prior 30 days at any hospital? No Last DP export: 07/14/19 6:30 Patient Name: BRIAN BARBOSA Page [phone] at 1937 All edits/amendments must be made on the electronic document DICTATION DATE: 07/14/191935 SPARKER AND PATCHER: RONNA 07/14/191935 RPT#: [id number] DC DATE: STATUS: ADM IN [facility] [address] [place] [address] END OF REPORT
[2019-07-14 19:59] VITALS: BP 102/64
--- NOTE | 2019-07-14 23:00 | NUR ---
RECEIVED PATIENT TO ROOM 2130 VIA STRETCHER, PT TRANSFERED TO CHAIR WITH NO ASSIST. NO S/S OF DISTRESS OBSERVED, DYSPNEA ON EXERTION, 4L O2 VIA NC. PIV TO LT FA, PATENT, SL, DRSG C/D/I. PROVIDED PATIENT WITH SANDWICH TRAY AND DIET COLA. VSS. MED REC, QUICK START, ADULT HX, SUICIDE SCREENING COMPLETE. PATIENT DENIES FURTHER NEEDS AT THIS TIME. CL IN REACH, BED LOCKED AND LOWERED. WILL CTM.
[2019-07-15] VITALS: BP 111/68
--- NOTE | 2019-07-15 02:19 | NUR ---
I have reviewed this patient and I concur with the Shift Assessment completed by the Licensed Practical Nurse today this shift.
[2019-07-15 02:26] LABS: BASOPHILS 0.2 % (0-2); EOSINOPHILS 0 % (0-7); HEMATOCRIT 34.4 % (36.0-48.0); HEMOGLOBIN 10.5 g/dL (12-16); IMMATURE GRANULOCYTES 1.2 % (0-5); LYMPHOCYTES 9.8 % (15-50); MCH 27.8 pg (26.0-34.0); MCHC 30.5 g/dL (31.0-37.0); MONOCYTES 2.2 % (2-11); NEUTROPHILS 86.6 % (40-80); PLATELET COUNT 548 10x3/uL (130-400); RBC 3.78 10x6/uL (4.00-5.40); RDW 16.2 % (11.5-14.5); WBC 9.9 10x3/uL (4.8-10.8)
[2019-07-15 02:28] VITALS: BP 95/60; BMI 24.3
[2019-07-15 02:37] LABS: CALCIUM 8.8 mg/dL (8.5-10.1); CARBON DIOXIDE 25.5 mmol/L (21.0-32.0); MAGNESIUM - SERUM 1.4 mg/dL (1.8-2.4)
[2019-07-15 02:38] LABS: ANION GAP 16.5 mmol/L (8-16); CREATININE - SERUM 1.3 mg/dL (0.6-1.3); VALPROIC ACID (DEPAKOTE) 0.2 ug/mL (50.0-100.0)
[2019-07-15 04:00] VITALS: BP 135/73
--- NOTE | 2019-07-15 07:17 | NUR ---
PT A/OX4, SITTING IN BED CROSS LEGGED CRYING LOUD SOBS, STATING SHE HAS A HEADACHE AND WANTS ALL HER MEDICATIONS NOW. WILL SEE WHAT I CAN DO TO ACCOMIDATE. NO FAMILY AT BEDSIDE, ALL QUESTIONS ANSWERED TO THE BEST OF MY ABILITY. CL IN REACH, SRX2.
--- NOTE | 2019-07-15 08:14 | NUR ---
PT STATES SHE NEEDS 250 TID LYRICA AND PAXIL 40MG DAILY.
[2019-07-15 08:34] VITALS: Ht 149.9 cm; Wt 54.4 kg
[2019-07-15 09:05] VITALS: BP 127/64
[2019-07-15] MEDS ORDERED: PAXIL40 MG PO (09:14)
[2019-07-15] MEDS ORDERED: ATARAX 25 MG TA25 MG PO (10:17)
[2019-07-15] MEDS ORDERED: MAXALT10 MG PO (12:22)
[2019-07-15 12:41] VITALS: BP 110/75
[2019-07-15 20:36] VITALS: BP 121/67
[2019-07-15] MEDS ORDERED: METHOCARBAMOL750 MG NG (20:47)
[2019-07-15] MEDS ORDERED: PERCOCET 10-321 EAC1 PO (21:19)
--- NOTE | 2019-07-15 23:29 | NUR ---
INITIAL ROUNDS COMPLETED AT 1910 HRS. PT HAS C/O ROBLERO AND NAUSEA. DEMANDING HER MIGRAINE MEDS. TYLENOL 500MG PO GIVEN AT 1934 HRS. ATTEMPTED TO GIVEN ZOFRAN 4MG SIVP PT IV INFILTRATED. DC'D WITH CATHETER INTACT. ATTEMPTED IV X4 WITHOUT SUCCESS. ASSESSMENT COMPLETED AT 2044 HRS. VSS. AUDIBLE INSP AND EXP WHEEZES NOTED. 02 4.5LNC. NEIL. ALERT AND ORIENTED TO PERSON, PLACE AND TIME. BACK MOTTLED. REVIEWED PT'S MEDS WITH PT AND UPDATED. INFORMED PT WILL CALL MD AFTER ASSESSMENT DONE ON THE OTHER PT'S . PT STATED UNDERSTANDING. PM PO MEDS GIVEN. Local [employer] PAGED AT 0 HRS. Emily PAIGE INTERNATIONAL EDITORIAL PRODUCER RETURNS ACLL AT 0 HRS. [facility], HOME MEDS, MEDS PLACED ON HOLD AND INABLITY TO OBTAIN AN IV. NEW ORDERS RECEIVED AND NOTED. ROBAXIN 500MG, REQUIP 2MG PO GIVEN AT 2151 HRS. EXPLAINED TO PT SHE NEEDS TO DISCUSSED WITH MD IN AM TO GET MIGRAINE MED OFF HOLD. PT STATED UNDERTANDING. Cady BURKS RN ATTEMPTED IV X1 WITHOUT SUCCESS AT THAT TIME. ATEMPTED IV X 3 WITHOUT SUCCESS. ZOFRAN 4MG ODT GIVEN. MORPHINE 4MG IM GIVEN TO R DORSALIS GLUTEAL AT 2245 HRS. PT CURRENTLY STATES GENERALIZED PAIN NOW 6-7/10. SR UP X2, CALL LIGHT WITHIN REACH.
--- NOTE | 2019-07-15 23:45 | NUR ---
SPOKE WITH A ORLIN CONROY REGARDING IV ACCESS.
[2019-07-16 00:27] VITALS: BP 100/69
--- NOTE | 2019-07-16 01:09 | NUR ---
IV STARTED #22 TO L WRIST WITH BY Sharri ORDAZ RN. PT TOLERATED PROCEDURE WELL.
--- NOTE | 2019-07-16 02:31 | NUR ---
PT RESTING WITH EYES CLOSED. RESP EVEN AND REGULAR. CALL LIGHT WITHIN REACH.
--- NOTE | 2019-07-16 04:33 | NUR ---
PT RESTING WITH EYES CLOSED. RESP EVEN AND REGULAR. SR UP X2, CALL LIGHT WITHIN REACH.
[2019-07-16 04:45] VITALS: BP 119/81
--- NOTE | 2019-07-16 05:58 | NUR ---
PT HAS RESED WELL SINCE PERCOCET ADMINISTRATION AT 0115. VSS THROUGHOUT SHIFT. WILL CONTINUE TO MONITOR.
[2019-07-16 06:28] LABS: BASOPHILS 0.2 % (0-2); EOSINOPHILS 0.1 % (0-7); HEMATOCRIT 33.4 % (36.0-48.0); IMMATURE GRANULOCYTES 0.4 % (0-5); LYMPHOCYTES 22.4 % (15-50); MCH 27.6 pg (26.0-34.0); MCHC 29.9 g/dL (31.0-37.0); MCV 92.3 fL (80.0-100.0); MEAN PLATELET VOLUME 9.7 fL (7.4-10.4); MONOCYTES 6.6 % (2-11); NEUTROPHILS 70.3 % (40-80); PLATELET COUNT 538 10x3/uL (130-400); RBC 3.62 10x6/uL (4.00-5.40); RDW 16.4 % (11.5-14.5)
--- NOTE | 2019-07-16 06:38 | NUR ---
MORPHINE 4MG SIVP GIVEN FOR C/O CHRONIC PAIN ALL OVER 03/11.
[2019-07-16 06:56] LABS: CALC OSMOLALITY 288 mosm/kg (275-300); CALCIUM 8.1 mg/dL (8.5-10.1); CARBON DIOXIDE 30.1 mmol/L (21.0-32.0); CHLORIDE - SERUM 107 mmol/L (98-107); CREATININE - SERUM 0.8 mg/dL (0.6-1.3); GLUCOSE 91 mg/dL (74-106); PHOSPHOROUS 3.2 mg/dL (2.5-4.9); POTASSIUM - SERUM 4.3 mmol/L (3.5-5.1); SODIUM 143 mmol/L (136-145); UREA NITROGEN 23 mg/dL (7-18); eGFR NON AFRICAN AMERICAN 80 mL/min (90-120)
[2019-07-16 08:28] VITALS: BP 105/76
[2019-07-16 12:00] VITALS: BP 110/68
--- NOTE | 2019-07-16 13:32 | NUR ---
IV INFILTRATED. DC LT WRIST IV TIP INTACT. UNABLE TO OBTAIN ACCESS. CALL ICU NURSE TO TRY.
[2019-07-16 16:32] VITALS: BP 107/72
--- NOTE | 2019-07-16 17:56 | NUR ---
SPOKE WITH MARYCARMEN GUERRA IN ER FOR IV RESITE X2. HAS YET TO ARRIVE TO RESITE.
--- NOTE | 2019-07-16 23:23 | NUR ---
INITIAL ROUNDS COMPLETED AT 1905 HRS. PT IN BATHROOM. PT DENIED ANY DISCOMFORT. ASSESSMENT COMPLETED AT 2000 HRS. VSS. PT ALERT AND OREINTED TO PERSON,PLACE AND TIME. NEIL. NO IV ACCESS. O3 4.5L HF. LUNGS WITH INSP AND EXP WHEZES NOTED. ABD SOT WTIH ACTIVE BS NOTED. PT PICKING AT SORES ON BILAT ARMS. LOWER BACK MOTTLED. PT AGITATED STATING SHE HAS BEEN ASKING FOR HER MIGRAINE MED FOR HOURS AND HAD NOT GOTTEN IT. ALSO INSISTING SHE NEEDS TO HAVE HER STEROID. EMOTIONAL SUPPORT GIVEN WITHOUT SUCCESS. MIGRAINE MED GIVEN AT 2014 HRS. WENT OVER MED LIST AND INFORMED OF ORDER FOR VASCULAR ACCESS IN AM. PT SLIGHTLY CALMER AT THAT TIME. DAUGHTER CALLED AT 0 HRS STATING HER MOTHER NEEDED A NICOTINE PATCH, HER PM MEDS NOW AND SOMEONE TO SIT WITH HER AT NIGHT. INFORMED DAUGHTER THIS NURSE WAS IN THE PROCESS OF PULLING HER MOTHER'S MEDS WHEN SHE CALLED, PT RECEIVED A NICOTINE PATCH IN THE AM AND THE HOSPITAL DID NOT PROVIDE SITTERS FOR PTS. DAUGHTER THEN STATED HOSPICE WAS NOT FOR THE DYING AND THEY PROVIDED SITTERS. INFORMED DAUGHTER TO SPEAK WITH CASE MANAGEMENT IN AM. PT'S MEDS GIVEN AFTER DAUGHTER HUNG UP. PT NOT HAPPY THAT ZOFRAN AND MORPHINE WAS NOT GIVEN AT THAT TIME. INFORMED PT THAT SHE NEDED TO ASK FOR THEM. PT REPLIED THAT SHE WAS ALWAYS HURTING 8-05/11 AND THIS NURSE SHOULD OF ANTICIPATED THAT. ZOFRAN ODT 4MG PO GIVEN. MORPHINE 4MG IM TO R DORSAL GLUTEAL. PT CURRENTLY RESTING WITH EYES CLOSED. RESP EVEN AND REGULAR. SR UP X2,CALL LIGHT WITHIN REACH.
[2019-07-17 00:30] VITALS: BP 107/66
--- NOTE | 2019-07-17 01:14 | NUR ---
PT AWAKE, NODISTESS NOTED. EXPLAINED TO PT NEED FOR URINE AND STOOL SAMPLES. COLLECTORS IN BR. INFORMED PT TO CALL WHEN SAMPLE AVAILABLE. STATED UNDERSTANDING. CALL LIGHT WITHIN REACH.
--- NOTE | 2019-07-17 03:02 | NUR ---
PT AWAKE; HAS C/O CHRONIC PAIN ALL OVER 02/08. PERCOCET PO GIVEN. CALL LIGHT WITHIN REACH.
[2019-07-17 04:30] VITALS: BP 104/71
[2019-07-17 04:39] LABS: APPEARANCE CLEAR (CLEAR); BILIRUBIN NEGATIVE (NEGATIVE); COLOR DK YELLOW (YELLOW); GLUCOSE NEGATIVE (NEGATIVE); KETONE SMALL mg/dL (NEGATIVE); NITRITE NEGATIVE (NEGATIVE); PROTEIN NEGATIVE (NEGATIVE); SPECIFIC GRAVITY 1.015 (1.005-1.020); UROBILINOGEN NORMAL (NORMAL)
--- NOTE | 2019-07-17 04:57 | NUR ---
PT RESTING WITH EYES CLOSED. RESP EVEN AND REGULAR. CALL LIGHT WITHIN REACH.
[2019-07-17 05:51] LABS: BASOPHILS 0.1 % (0-2); EOSINOPHILS 0 % (0-7); HEMATOCRIT 31.4 % (36.0-48.0); HEMOGLOBIN 9.6 g/dL (12-16); IMMATURE GRANULOCYTES 0.5 % (0-5); LYMPHOCYTES 6.8 % (15-50); MCH 27.9 pg (26.0-34.0); MCHC 30.6 g/dL (31.0-37.0); MCV 91.3 fL (80.0-100.0); MEAN PLATELET VOLUME 9.7 fL (7.4-10.4); MONOCYTES 2.7 % (2-11); NEUTROPHILS 89.9 % (40-80); PLATELET COUNT 528 10x3/uL (130-400); RBC 3.44 10x6/uL (4.00-5.40); RDW 16.2 % (11.5-14.5); WBC 16.4 10x3/uL (4.8-10.8)
[2019-07-17 06:16] LABS: CALC OSMOLALITY 279 mosm/kg (275-300); CALCIUM 8.5 mg/dL (8.5-10.1); CARBON DIOXIDE 29.9 mmol/L (21.0-32.0); CHLORIDE - SERUM 101 mmol/L (98-107); CREATININE - SERUM 0.6 mg/dL (0.6-1.3); GLUCOSE 131 mg/dL (74-106); MAGNESIUM - SERUM 1.9 mg/dL (1.8-2.4); PHOSPHOROUS 2.6 mg/dL (2.5-4.9); POTASSIUM - SERUM 4.9 mmol/L (3.5-5.1); SODIUM 137 mmol/L (136-145); UREA NITROGEN 25 mg/dL (7-18); eGFR NON AFRICAN AMERICAN > 90 mL/min (90-120)
--- NOTE | 2019-07-17 06:52 | NUR ---
PT RESTED WELL AFTER PERCOCET ADMINISTRATION. VSS. NEEDS MET; WILL CONTINUE TO MONITOR.
--- NOTE | 2019-07-17 07:30 | NUR ---
REPORT RECIEVED. PT SITTING UP IN BED. RR EVEN AND UNLABORED ON 2L NC. PT HAS NO IV ACCESS AT THIS TIME. BED LOCKED AND IN LOWEST POSITION, CALL LIGHT WITHIN REACH. WILL CTM
--- NOTE | 2019-07-17 09:12 | MORECARE ---
CASE MANAGEMENT DISCHARGE SUMMARY PATIENT: BRIAN BARBOSA UNIT: [id number] ADM DATE: 07/14/19 AGE: 54 : 69 SEX: F ROOM/BED: D.2130 AUTHOR: DEVIN,DOC PHYSICIAN: REFERRING PHYSICIAN: FERMIN MONTAÑO MD DATE OF SERVICE: 07/17/19 Discharge Plan Patient Name: BRIAN BARBOSA Facility: [facility]:[place] : 1965 Planned Disposition: Home Anticipated Discharge Date: Discharge Date: Expected LOS: Initial Reviewer: [email or web address] Initial Review Date: 07/14/2019 Generated: 07/17/19 10:11 am DCP- Discharge Planning Updated by [email or web address]: Chante Mccrary on 07/14/19 6:[address] CM met with patient to discuss initial discharge planning. Patient is in agreement to proceed with assessment. Patient is alert/oriented. Patient lives in an apartment, alone. Stairs/steps: None. PCP: LURDES Nathan. Pharmacy: [facility] w/delivery. HHS: No. [facility] Agency on Aging. She has an aide 4 days /week for personal care, light house keeping, grocery shopping. DME: Home O2 @[facility]--states she has been using it 22/02 this past week. Patient gives permission to speak with family member. Emergency contact: (daughter) Emelyn Prakash @[phone], lives in [place]. Requires partial assist with bathing, dressing, house work, shopping. CM discussed the availability of HH, Rehab, DME services. Patient denies the need for additional services at this time and feels safe returning to previous environment. Patient denies being hospitalized within the past 30 days. 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 Receives a SSD check, but no other services. Transportation at time of discharge: Patient states she will take a taxi and has the money to pay for it. CM will follow and assist with further dc planning PRN. DCPIA - Discharge Planning Initial Assessment Updated by [email or web address]: Chante Mccrary on 07/14/19 7:34 pm * Is the patient Alert and Oriented? Yes * How many steps to enter\exit or inside your home? * PCP Dr. stevenson * Pharmacy [facility] w/delivery * Preadmission Environment Home Alone * ADLs Partial Dependent * Partial ADLs (Assistance needed) Bathing Dressing * Equipment Nebulizer * Other Equipment O2 @[facility], Nebulizer, Cane, Walker, Shower Chair * List name and contact numbers for known caregivers / representatives who currently or will assist patient after discharge: Emelyn Prakash (daughter) [phone] * Verbal permission to speak to the caregivers and representatives has been obtained from the patient. Yes * Community resources currently utilized Private Duty Care * Please name any agencies selected above. [facility] * Additional services required to return to the preadmission environment? No * Can the patient safely return to the preadmission environment? Yes * Has this patient been hospitalized within the prior 30 days at any hospital? No Last DP export: 07/14/19 6:37 Patient Name: BRIAN BARBOSA Page [phone] at 0912 All edits/amendments must be made on the electronic document DICTATION DATE: 07/17/19910 MEDICAL OFFICE ADMINISTRATOR: RONNA 07/17/19910 RPT#: [id number] DC DATE: STATUS: ADM IN [facility] [address] [place] [address] END OF REPORT
[2019-07-17 09:20] VITALS: BP 107/71
--- NOTE | 2019-07-17 12:40 | NUR ---
I have reviewed this patient and I concur with the Shift Assessment completed by the Licensed Practical Nurse today this shift.
[2019-07-17 16:32] VITALS: BP 118/71
--- NOTE | 2019-07-17 19:15 | NUR ---
PT CO PAIN AND NASEA AND COMPLAINING OG POOR CARE I DID MY BEST TO ASSIST WITH NEEDS BED LOW AND LOCKED CALL LIGHT IS IN REACH
[2019-07-17 20:00] VITALS: BP 113/73
[2019-07-18] VITALS: BP 123/64
--- NOTE | 2019-07-18 02:44 | NUR ---
I have reviewed this patient and I concur with the Shift Assessment completed by the Licensed Practical Nurse today this shift.
--- NOTE | 2019-07-18 02:45 | NUR ---
I have reviewed this patient and I concur with the Shift Assessment completed by the Licensed Practical Nurse today this shift.
[2019-07-18 04:00] VITALS: BP 108/60
[2019-07-18 06:17] LABS: BASOPHILS 0.1 % (0-2); EOSINOPHILS 0 % (0-7); HEMATOCRIT 33.6 % (36.0-48.0); HEMOGLOBIN 10.1 g/dL (12-16); IMMATURE GRANULOCYTES 0.6 % (0-5); MCH 27.3 pg (26.0-34.0); MCHC 30.1 g/dL (31.0-37.0); MCV 90.8 fL (80.0-100.0); MEAN PLATELET VOLUME 9.8 fL (7.4-10.4); MONOCYTES 4.4 % (2-11); NEUTROPHILS 88.9 % (40-80); PLATELET COUNT 577 10x3/uL (130-400); RDW 16.1 % (11.5-14.5)
[2019-07-18 06:32] LABS: CALC OSMOLALITY 280 mosm/kg (275-300); CALCIUM 8.8 mg/dL (8.5-10.1); CARBON DIOXIDE 33.5 mmol/L (21.0-32.0); CHLORIDE - SERUM 98 mmol/L (98-107); CREATININE - SERUM 0.7 mg/dL (0.6-1.3); GLUCOSE 135 mg/dL (74-106); MAGNESIUM - SERUM 1.9 mg/dL (1.8-2.4); PHOSPHOROUS 2.1 mg/dL (2.5-4.9); SODIUM 138 mmol/L (136-145); UREA NITROGEN 20 mg/dL (7-18); eGFR NON AFRICAN AMERICAN > 90 mL/min (90-120)
[2019-07-18 06:39] LABS: POTASSIUM - SERUM 4.1 mmol/L (3.5-5.1)
--- NOTE | 2019-07-18 08:19 | NUR ---
ASSESSMENT DONE. DENIES NEEDS
--- NOTE | 2019-07-18 10:27 | NUR ---
I have reviewed this patient and I concur with the Shift Assessment completed by the Licensed Practical Nurse today this shift.
[2019-07-18] MEDS ORDERED: OMNICEF300 MG PO (10:50)
[2019-07-18] MEDS ORDERED: VIBRAMYCIN 100100 MG PO (10:50)
[2019-07-18] MEDS ORDERED: STERAPRED DS 1010 MG PO (10:52)
--- NOTE | 2019-07-18 11:53 | NUR ---
1143-WRITTEN TEXT TO DR SPEAR FOR DISCHARGE ORDERS AND MEDS. 1154-NEW ORDERS FROM DR SPEAR.
[2019-07-18] MEDS ORDERED: SINGULAIR10 MG PO (12:04)
[2019-07-18] MEDS ORDERED: DALIRESP500 MCG (12:05)
--- NOTE | 2019-07-18 12:15 | MORECARE ---
CASE MANAGEMENT DISCHARGE SUMMARY PATIENT: BRIAN BARBOSA UNIT: [id number] ADM DATE: 07/14/19 AGE: 54 : 69 SEX: F ROOM/BED: D.3809 AUTHOR: DEVIN,DOC PHYSICIAN: REFERRING PHYSICIAN: FERMIN MONTAÑO MD DATE OF SERVICE: 07/18/19 Discharge Plan Patient Name: BRIAN BARBOSA Facility: [facility]:[place] : 1965 Planned Disposition: Home Anticipated Discharge Date: 07/18/19 Discharge Date: Expected LOS: 4 Initial Reviewer: [email or web address] Initial Review Date: 07/14/2019 Generated: 07/18/19 1:15 pm DCP- Discharge Planning Updated by [email or web address]: Chante Mccrary on 07/14/19 6:[address] CM met with patient to discuss initial discharge planning. Patient is in agreement to proceed with assessment. Patient is alert/oriented. Patient lives in an apartment, alone. Stairs/steps: None. PCP: Dr. Fleming, . Pharmacy: [facility]/delivery. HHS: No. [facility] Agency on Aging. She has an aide 4 days /week for personal care, light house keeping, grocery shopping. DME: Home O2 @[facility]--states she has been using it 22/02 this past week. Patient gives permission to speak with family member. Emergency contact: (daughter) Emelyn Prakash @[phone], lives in [place]. Requires partial assist with bathing, dressing, house work, shopping. CM discussed the availability of HH, Rehab, DME services. Patient denies the need for additional services at this time and feels safe returning to previous environment. Patient denies being hospitalized within the past 30 days. 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 Receives a SSD check, but no other services. Transportation at time of discharge: Patient states she will take a taxi and has the money to pay for it. CM will follow and assist with further dc planning PRN. DCPIA - Discharge Planning Initial Assessment Updated by [email or web address]: Chante Mccrary on 07/14/19 7:34 pm * Is the patient Alert and Oriented? Yes * How many steps to enter\exit or inside your home? * PCP Dr. fleming * Pharmacy [facility] w/delivery * Preadmission Environment Home Alone * ADLs Partial Dependent * Partial ADLs (Assistance needed) Bathing Dressing * Equipment Nebulizer * Other Equipment O2 @HS, Nebulizer, Cane, Walker, Shower Chair * List name and contact numbers for known caregivers / representatives who currently or will assist patient after discharge: Emelyn Prakash (daughter) [phone] * Verbal permission to speak to the caregivers and representatives has been obtained from the patient. Yes * Community resources currently utilized Private Duty Care * Please name any agencies selected above. [facility] * Additional services required to return to the preadmission environment? No * Can the patient safely return to the preadmission environment? Yes * Has this patient been hospitalized within the prior 30 days at any hospital? No Last DP export: 07/17/19 8:12 Patient Name: BRIAN BARBOSA Page [phone] at 1215 All edits/amendments must be made on the electronic document DICTATION DATE: 07/18/19 1215 TREAD BOOKER: RONNA 07/18/19 1215 RPT#: [id number] DC DATE: STATUS: ADM IN [facility] [address] [place] [address] END OF REPORT
--- NOTE | 2019-07-18 12:25 | MORECARE ---
CASE MANAGEMENT DISCHARGE SUMMARY PATIENT: BRIAN BARBOSA UNIT: [id number] ADM DATE: 07/14/19 AGE: 54 : 69 SEX: F ROOM/BED: D.4190 AUTHOR: DEVIN,DOC PHYSICIAN: REFERRING PHYSICIAN: FERMIN MNOTAÑO MD DATE OF SERVICE: 07/18/19 Discharge Plan Patient Name: BRIAN BARBOSA Facility: [facility]:[place] : 1965 Planned Disposition: Home Anticipated Discharge Date: 07/18/19 Discharge Date: Expected LOS: 4 Initial Reviewer: [email or web address] Initial Review Date: 07/14/2019 Generated: 07/18/19 1:25 pm Comments DCP- Discharge Planning Updated by [email or web address]: Jason Deal on 07/18/19 11:[address] Patient Name: BRIAN BARBOSA Encounter No: [id number] : 1965 Primary Insurance: [facility] MEDICARE SOLUTIONS Anticipated DC Date: 07-18-2019 Planned Disposition: Home DCP follow-up note: CM MET WITH PT IN ROOM TO DISCUSS DISCHARGE NEEDS AND PLANNING. CM DISCUSSED AVAILABILITY OF HOME HEALTH, REHAB SERVICES AND MEDICAL EQUIPMENT. PT DENIES DISCHARGE NEEDS. PT TO TAKE TAXI HOME AT DISCHARGE. IMPORTANT MESSAGE FROM MEDICARE PROVIDED AND EXPLAINED. PT HAS NEBULIZER AT HOME. SALES AND MANAGEMENT TRAINEE NURSE NOTIFIED. BETH Wise DCP- Discharge Planning Updated by [id number]: Chante Mccrary on 07/14/19 6:[address] CM met with patient to discuss initial discharge planning. Patient is in agreement to proceed with assessment. Patient is alert/oriented. Patient lives in an apartment, alone. Stairs/steps: None. PCP: Dr. Fleming, . Pharmacy: [facility] w/delivery. HHS: No. [facility] on Aging. She has an aide 4 days /week for personal care, light house keeping, grocery shopping. DME: Home O2 @[facility]--states she has been using it 24/ this past week. Patient gives permission to speak with family member. Emergency contact: (daughter) Emelyn Prakash @[phone], lives in [place]. Requires partial assist with bathing, dressing, house work, shopping. CM discussed the availability of HH, Rehab, DME services. Patient denies the need for additional services at this time and feels safe returning to previous environment. Patient denies being hospitalized within the past 30 days. 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 Receives a SSD check, but no other services. Transportation at time of discharge: Patient states she will take a taxi and has the money to pay for it. CM will follow and assist with further dc planning PRN. DCPIA - Discharge Planning Initial Assessment Updated by [id number]: Chante Mccrary on 07/14/19 7:34 pm * Is the patient Alert and Oriented? Yes * How many steps to enter\exit or inside your home? * PCP Dr. fleming * Pharmacy [facility] w/delivery * Preadmission Environment Home Alone * ADLs Partial Dependent * Partial ADLs (Assistance needed) Bathing Dressing * Equipment Nebulizer * Other Equipment O2 @[facility], Nebulizer, Cane, Walker, Shower Chair * List name and contact numbers for known caregivers / representatives who currently or will assist patient after discharge: Emelyn Prakash (daughter) [phone] * Verbal permission to speak to the caregivers and representatives has been obtained from the patient. Yes * Community resources currently utilized Private Duty Care * Please name any agencies selected above. Area Agency on Aging * Additional services required to return to the preadmission environment? No * Can the patient safely return to the preadmission environment? Yes * Has this patient been hospitalized within the prior 30 days at any hospital? No Coverage Notice Reviewer: [id number] - Jason Deal Notice Issued Date-Time: 07/18/2019 11:15 Notice Type: IM Discharge Notice Notice Delivered To: Patient Relationship to Patient: Multi Spindle Operator Name: Delivery Method: HAND - Hand Delivered Sarah Days: Prior Verbal Notification: Recipient Understood Notice: Yes Recipient Signature: Yes Med Rec Note Co-signed by Attending: Coverage Notice Comment: Last DP export: 07/17/19 8:12 Patient Name: BRIAN BARBOSA Page [id number] at 1225 All edits/amendments must be made on the electronic document DICTATION DATE: 07/18/19 1225 WOOD MILLER: RONNA 07/18/19 1225 RPT#: [id number] DC DATE: STATUS: ADM IN [facility] [address] [place] [address] END OF REPORT
--- NOTE | 2019-07-18 13:07 | EC ---
PATIENT:BRIAN BARBOSA DATE OF SERVICE: 07/14/19 SEX: F MEDICAL RECORD: [id number] DATE OF : 69 LOCATION:D.M2 D.213 AGE OF PATIENT: 54 ADMISSION DATE: 07/14/19 REFERRING PHYSICIAN: INTERPRETING PHYSICIAN: MAURA KHALIL MD ECHOCARDIOGRAM REPORT ECHO CHARGES 4 ECHO COMPLETE Date: 07/16/19 CLINICAL DIAGNOSIS: SOB HX CAD/STENTS ECHOCARDIOGRAPHIC MEASUREMENTS (adult normal given) AC root (d.<3.7cm) 3.3 cm LV Septum d (<1.2 cm> 1.1 cm Valve Excursion 2.0 cm LV Septum (systole) 1.4 cm Left Atria (s.<4.0cm> 3.2 cm LVPW d(<1.2cm) 1.4 cm RV (d.<2.3cm) 3.2 cm LVPW (sytole) 1.6 cm LV diastole(<5.6CM) 3.1 cm MV E-F(>70mm/sec) cm LV systole 2.0 cm LVOT Diameter 1.5 cm MV exc.(>10mm) 1.6 cm Est.ejection fraction (50-75%) % DOPPLER: LVIT cm/sec A 59.0 cm/sec E 118.0 cm/sec LA cm/sec RVSP 27 mmHg LVOT 78 cm/sec AOP1/2T m/s Asc. Ao 104 cm/sec RVOT 65 cm/sec RA cm/sec PA 84 cm/sec AV Gradient Peak 4.35 mmHg AV Mean 2.32 mmHg AV Area 1.4 cm MV Gradient Peak 4.30 mmHg MV Mean 1.50 mmHg MV Area cm COMMENTS: Equipment Man: 2 LIDIA ANN Comber Fixer: 3 Dr. Hess TAPE# PACS Pericardial Effusion N DATE OF SERVICE: Adequate 2D, Color Flow, Spectral Doppler, and M-Mode No LVH. LV internal dimension is normal. Wall motion is normal. EF is greater than or equal to 55%. Aortic valve is tricuspid. No evidence of stenosis by Doppler interrogation. The left atrium is normal. Mitral valve shows no prolapse. Trace MR. Right-sided chambers are grossly normal. Trace TR. 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
--- NOTE | 2019-07-18 13:29 | NUR ---
DC GIVEN TO PT
--- NOTE | 2019-07-18 13:35 | NUR ---
DC HOME PER TAXI
[2019-07-20 03:07] LABS: IMMUNOGLOBULIN E 283 IU/mL (6-495)
== END 2019-07-18 13:35 | disposition home or self-care (01) | DRG 177 ==
LOC: D.ER 16:12 → D.M2 18:50
PROVIDERS: Family Medicine; Internal Medicine Pulmonary Disease; ADMIT Emergency Medicine; ATTEND Emergency Medicine
DX: J15.6 Pneumonia due to other Gram-negative bacteria (principal); J96.21 Acute and chronic respiratory failure with hypoxia; F17.213 Nicotine dependence, cigarettes, with withdrawal; J13 Pneumonia due to Streptococcus pneumoniae; E11.40 Type 2 diabetes mellitus with diabetic neuropathy, unspecified; I10 Essential (primary) hypertension; I25.10 Atherosclerotic heart disease of native coronary artery without angina pectoris; J43.9 Emphysema, unspecified; K21.9 Gastro-esophageal reflux disease without esophagitis; E87.6 Hypokalemia; E83.42 Hypomagnesemia; E78.5 Hyperlipidemia, unspecified; M19.90 Unspecified osteoarthritis, unspecified site; F41.8 Other specified anxiety disorders; G89.29 Other chronic pain; M54.9 Dorsalgia, unspecified; E27.8 Other specified disorders of adrenal gland; D64.9 Anemia, unspecified; G43.909 Migraine, unspecified, not intractable, without status migrainosus; Z86.73 Personal history of transient ischemic attack (TIA), and cerebral infarction without residual deficits

== ENCOUNTER 2019-08-08 06:45 | Observation (INO) | payer MEDICARE, MEDICAID ==
[~2019-08-08] VITALS: Ht 149.9 cm; Wt 55.5 kg
--- NOTE | ~2019-08-08 | HEMODYNAMI ---
PATIENT:BRIAN BARBOSA MEDICAL RECORD: [id number] : 69 LOCATION:[facility] ADMISSION DATE: 08/08/19 Generatedon:08/08/201910:15 Patient name: BRIAN BARBOSA Patient #: [id number] : 1965 Date of study: 08/08/2019 Page: Of Hemodynamic Procedure Report Patient Data Patient Demographics Procedure consent was obtained First Name: BRIAN Gender: Female Last Name: CHELSEY : 1965 Middle Initial: M Age: 54 year(s) Patient #: [id number] Race: SSN: [id number] Additional ID: [id number] Contact details Address: [address] [place] [address] State: [place] City: [facility] Zip code: [address] Past Medical History History of disease Date Diagnosis Comments CAD Allergies Allergen Reaction Date Comments Reported Sulfa drugs 04/26/2015 Contrast 04/26/2015 Iodine 12/31/2017 Sulfa drugs 12/31/2017 Other allergy 01/04/2018 IODINE, SULFA Admission Admission Data Admission Date: 08/08/2019 Admission Time: 6:45 Arrival Date: 08/08/2019 Arrival Time: 9:00 Admit Source: Other Insurance Payor: Medicare, Medicaid [facility] #: [id number] Height (in.): 59.06 BSA: 1.5 (m2) Height (cm.): 150 BMI: 24.89 (kg/m2) Weight (lbs.): 123.46 Weight (kg.): 56 Lab Results Lab Result Date: 08/08/2019 Lab Result Time: 0:00 Biochemistry Name Units Result Min Max BUN mg/dl 20 --(----)*- 7 18 Creatinine mg/dl 0.9 --(-*--)-- 0.6 1.3 eGFR ml/min 70.38505 *-(----)-- 90 120 NONAFRICAN CBC Name Units Result Min Max Hemoglobin g/dl 11.2 *-(----)-- 13.5 17.5 Procedure Procedure Types Cath Procedure Diagnostic Procedure [facility] w/Coronaries FFR/IVUS FFR Initial FFR Additional Sedation Charges Moderate Sedation up to 30 minutes PCI Procedure Coronary Stent Coronary Stent Initial x2 PTCA PTCA Initial Hemochron ACT Test Procedure Description Procedure Date Procedure Date: 08/08/2019 Procedure Start Time: 9:40 Procedure End Time: 10:10 Procedure Staff Name Function Abdulkadir Vidales MD Performing Physician Lilibeth Lance RT Monitor Brenda Long RT Scrub Oracoi Garrido RN Nurse Procedure Data Cath Procedure Fluoroscopy Diagnostic fluoroscopy Total fluoroscopy Time: 7.8 time: 7.8 min min Diagnostic fluoroscopy Total fluoroscopy dose: 855 dose: 855 mGy mGy Contrast Material Contrast Material Type Amount (ml) Isovue 300 143 Entry Location Entry Primary Successful Side Size Upsize Upsize Entry Closure Succes sful Closure Location (Fr) 1 (Fr) 2 (Fr) Remarks Device Remarks Femoral Right 5 Fr 6 Fr Exoseal artery Short Estimated blood loss: 5 ml Diagnostic catheters Device Type Used For End Catheter Placement MULTIPACK Pigtail 5 Fr LV Angiography catheter MULTIPACK JL 4.0 5Fr Left Coronary catheter Angiography MULTIPACK 3DRC 5Fr Right Coronary catheter Angiography Procedure Complications No complications Procedure Medications Medication Administration Route Dosage 0.9% NaCl I.V. 100 ml/hr Oxygen etCO2 Nasal cannula 2 l/min Heparin Flush Bag added to field 2 bags (1000units/500ml NS) Lidocaine 2% added to field 20 Versed I.V. 1 mg Fentanyl I.V. 50 mcg Versed I.V. 1 mg Fentanyl I.V. 50 mcg Heparin Bolus I.V. 4000 units Integrilin (Bolus I.V. 5 ml 2mg/ml) Integrilin (Bolus wasted 5 ml 2mg/ml) Plavix P.O. 600 mg Fentanyl I.V. 50 mcg Hemodynamics Rest BSA: 1.5 (m2) HGB: 11.2 (g/dl) O2 Consumption: Estimated: 153.42 (ml/min) O2 Con sumption indexed: Estimated:102.28 (ml/min/m) Heart Rate: 83 (bpm) Pressure Samples Time Site Value (mmHg) Purpose Heart Use Rate(bpm) 9:43 LV 102/11,13 Snapshot 83 Snapshots Pre Cath Intra NCS Post Cath Vital Signs Time Heart Resp SPO2 etCO2 NIBP Rhythm Pain Sedation Rate (ipm) (%) (mmHg) (mmHg) Status Level (bpm) 9:12:47 79 15 98 0 95/55(78) NSR 0 (11) 10(A) , No pain 9:16:48 82 13 98 41.7 86/53(71) NSR 0 (11) 10(A) , No pain 9:20:50 84 11 99 40.2 84/48(74) NSR 0 (11) 10(A) , No pain 9:24:49 82 13 98 34.9 83/49(64) NSR 0 (11) 10(A) , No pain 9:28:49 85 12 98 39.4 93/48(70) NSR 0 (11) 10(A) , No pain 9:32:53 83 13 98 39.4 88/48(72) NSR 0 (11) 10(A) , No pain 9:36:55 85 12 98 40.2 89/46(73) NSR 0 (11) 10(A) , No pain 9:40:56 85 12 98 40.2 83/48(73) NSR 0 (11) 10(A) , No pain 9:44:54 79 12 98 40.2 83/53(74) NSR 0 (11) 10(A) , No pain 9:48:56 88 12 98 35.6 72/47(66) NSR 0 (11) 9(A) , No pain 9:52:49 89 12 98 42.4 91/58(85) NSR 0 (11) 9(A) , No pain 9:56:51 76 13 98 36.4 76/51(62) NSR 0 (11) 9(A) , No pain 10:00:42 90 14 97 39.4 96/65(79) NSR 0 (11) 10(A) , No pain 10:04:42 90 12 97 41.7 102/65(87) NSR 0 (11) 10(A) , No pain 10:08:45 95 15 97 41.7 93/59(75) NSR 0 (11) 10(A) , No pain Medications Time Medication Route Dose Verified Delivered Reason Notes Effectiveness by by 9:26:24 0.9% NaCl I.V. 100 Oracio Oracio Per physician ml/hr Hema Garrido RN RN 9:26:33 Oxygen etCO2 2 Oracio Oracio for low 02 sats Nasal l/min Hema Garrido cannula RN RN 9:26:45 Heparin Flush added 2 Oracio Oracio used for Bag to bags Hema Garrido procedure (1000units/500ml field RN RN NS) 9:26:55 Lidocaine 2% added 20ml Oracio Oracio for local to vial Lorjanice Garrido anesthetic field RN RN 9:30:48 Versed I.V. 1 mg Oracio Oracio for sedation Hema Garrido RN RN 9:30:56 Fentanyl I.V. 50 Oracio Oracio for sedation mcg Hema Garrido RN RN 9:39:06 Versed I.V. 1 mg Oracio Oracio for sedation Hema Garrido RN RN 9:39:12 Fentanyl I.V. 50 Oracio Oracio for sedation mcg Hema Garrido RN RN 9:48:45 Heparin Bolus I.V. 4000 Oracio Oracio for units Lorigan Hema anticoagulation RN RN 9:51:14 Integrilin I.V. 5 ml Oracio Oracio for (Bolus 2mg/ml) Hema Garrido antiplatelet RN RN therapy 9:51:22 Integrilin wasted 5 ml Oracio Oracio to sharp's (Bolus 2mg/ml) Hema Garrido RN RN 10:05:22 Plavix P.O. 600 Oracio Oracio for mg Hema Garrido antiplatelet RN RN therapy 10:09:40 Fentanyl I.V. 50 Oracio Oracio for sedation mcg Hema Garrido RN group account director Log Time Note 18:40:47 ACC-PCI Only Patient was given prescriptions, or instructed by Abdulkadir Vidales MD to start/continue the following medications upon discharge: Plavix 9:03:06 Informed consent obtained and on chart 9:05:21 Admit Source: Other 9:05:23 Arrival Date: 08/08/2019 9:00:00 AM 9:05:52 Insurance Payor : Medicare, Medicaid 9:08:06 Patient Height : 59.06 inches 9:08:11 Patient Weight : 123.46 lbs 9:08:54 Lab Result : BUN 20 mg/dl 9:08:54 Lab Result : eGFR NONAFRICAN 70.95488 ml/min 9:08:54 Lab Result : Hemoglobin 11.2 g/dl 9:08:54 Lab Result : Creatinine 0.9 mg/dl 9:09:14 Diagnostic Cath Status : Elective 9:09:30 Oracio Garrido RN sent for patient. Start room use. 9:09:34 Time tracking: Regular hours (M-F 7:00 - 5:00) 9:09:39 Plan of Care:Hemodynamics will remain stable., Cardiac rhythm will remain stable., Comfort level will be maintained., Respiratory function will remain adequate., Patient/ family verbilizes understanding of procedure., Procedure tolerated without complication., Recovers from procedure without complications.. 9:09:44 Patient received from Pre/Post Procedure Room to CCL 2 Alert and oriented. Tansferred to table in Supine position. 9:09:45 Warm blankets applied, and briseida hugger turned on for patient comfort. 9:09:45 Correct patient and procedure confirmed by team. 9:09:46 ECG and BP/O2 sat monitors applied to patient. 9:11:43 Vital chart was started 9:11:44 Baseline sample Acquired. 9:11:48 Rhythm: sinus rhythm 9:11:50 Full Disclosure recording started 9:11:53 H&P Date Dictated: 08/08/2019 Within 30 days and on chart., H&P Addendum completed by physician on day of procedure. (MUST COMPLETE FOR ALL OUTPATIENTS). 9:11:54 Pre-procedure instructions explained to patient. 9:11:55 Pre-op teaching completed and patient verbalized understanding. 9:11:56 Family in waiting room. 9:11:58 Patient NPO since Midnight. 9:12:01 Is the patient allergic to Iodine/contrast media? Yes. 9:12:01 Was the patient premedicated? Yes 9:12:05 Is patient on blood thinner?No 9:12:07 Patient diabetic? Yes. 9:12:08 If diabetic: On Metformin? Yes 9:12:12 If on Metformin: Last Dose? 08/06/2019 9:12:17 Previous problem with sedation/anesthesia? No ? 9:12:18 Snore? Yes 9:12:19 Sleep apnea? Yes 9:12:20 Deviated septum? No 9:12:21 Opens mouth fully? Yes 9:12:21 Sticks out tongue? Yes 9:12:30 Airway obstruction? Yes copd emphysema 9:12:36 Dentures? No ? 9:12:39 Pre procedure: right dorsailis pedis pulse 1+ Palpable, but thready & weak; easily obliterated 9:12:41 Pre procedure: left dorsailis pedis pulse 1+ Palpable, but thready & weak; easily obliterated 9:12:43 Patient pain scale 0/10 ?. 9:12:51 IV patent on arrival in right antecubital with 0.9% NaCl at [facility]. 9:13:01 Lab results completed and on chart. 9:13:08 Stress Test: no; N/A ? 9:15:24 Risk of Mortality: 0.5 9:15:28 Risk of blood transfusion: 5.5 9:15:31 Risk of JOEY: 1.0 9:15:36 Right groin area was prepped with chlora-prep and draped in sterile fashion 9:15:36 Alarms reviewed by R. N. 9:15:37 Sharps counted by scrub and verified by R.N. 9:26:24 0.9% NaCl 100 ml/hr I.V. was administered by Oracio Garrido RN; Per physician; Verbal order read back and verified. 9:26:33 Oxygen 2 l/min etCO2 Nasal cannula was administered by Oracio Garrido RN; for low 02 sats; Verbal order read back and verified. 9:26:45 Heparin Flush Bag (1000units/500ml NS) 2 bags added to field was administered by Oracio Garrido RN; used for procedure; Verbal order read back and verified. 9:26:55 Lidocaine 2% 20ml vial added to field was administered by Oracio Garrido RN; for local anesthetic; Verbal order read back and verified. 9:28:59 Physician arrived 9:29:00 --------ALL STOP TIME OUT------ 9:29:00 Final Timeout: patient, procedure, and site verified with staff and physician. All members of the team are in agreement. 9:29:03 Right groin site verified by team. 9:29:06 Fire Safety Assessment: A--An alcohol-based skin anteseptic being used preoperatively., C--Open oxygen or nitrous oxide is being used., D--An ESU, laser, or fiber-optic light is being used. 9:29:37 Physical assessment completed. ASA score P 3 - A patient with severe systemic disease as per Abdulkadir Vidales MD. 9:29:41 2) 60-89 Mildly reduced kidney function, and other findings (as for stage 1) point to kidney disease. 9:29:45 Maximum allowable contrast dose (3.7 X eGFR X 0.75)194 ml. 9:29:49 Sedation plan: IV Moderate Sedation Medication:Versed, Fentanyl 9:29:55 Use device set Femoral Dx 9:29:56 ACIST Syringe (15437) opened to sterile field. 9:29:56 Bag Decanter (2002S) opened to sterile field. 9:29:57 Medline Cath Pack ([id number]) opened to sterile field. 9:29:58 ACIST Hand Control (68246) opened to sterile field. 9:29:58 ACIST Manifold (70122) opened to sterile field. 9:29:58 DIAGNOSTIC Multipack 5Fr catheter set (IO8101) opened to sterile field. 9:29:59 Tegaderm 4 x 4 (1626W) opened to sterile field. 9:30:00 SHEATH 5FR [place] (IMI803) opened to sterile field. 9:30:00 EMERALD Guide Wire (518-363) opened to sterile field. 9:30:48 Versed 1 mg I.V. was administered by Oracio Garrido RN; for sedation; Verbal order read back and verified. 9:30:56 Fentanyl 50 mcg I.V. was administered by Oracio Garrido RN; for sedation; Verbal order read back and verified. 9:39:06 Versed 1 mg I.V. was administered by Oracio Garrido RN; for sedation; Verbal order read back and verified. 9:39:12 Fentanyl 50 mcg I.V. was administered by Oracio Garrido RN; for sedation; Verbal order read back and verified. 9:40:53 Procedure started. 9:40:58 Local anesthetic to right femoral artery with Lidocaine 2% by Abdulkadir Vidales MD.INITIAL ACCESS ONLY 9:42:24 A 5 Fr sheath was inserted into the Right Femoral artery 9:42:28 Zero performed for pressure channel P1 9:42:42 A MULTIPACK Pigtail 5 Fr catheter was advanced over the wire and used for LV Angiography. 9:43:40 LV hemodynamics recorded. 9:43:41 LV gram done using GRIMALDO 9:43:44 Injector settings: Ml/sec: 5, Volume: 15, 9:43:52 EF : 60 % 9:44:03 Catheter removed. 9:44:14 A MULTIPACK JL 4.0 5Fr catheter was advanced over the wire and used for Left Coronary Angiography. 9:45:33 LCA angiography performed. 9:45:36 Injector settings: Ml/sec: 3, Volume: 6, 9:45:44 Catheter removed. 9:45:49 A MULTIPACK 3DRC 5Fr catheter was advanced over the wire and used for Right Coronary Angiography. 9:46:14 [place] Verrata Plus pressure wire (72927I) opened to sterile field. 9:46:15 INFLATOR Merit BasixCompak (SL8892) opened to sterile field. 9:46:16 SHEATH 6FR Salem (TTY521) opened to sterile field. 9:46:22 GUIDE 6FR XBLAD 3.5 catheter ([id number]) opened to sterile field. 9:46:29 RCA angiography performed. 9:46:31 Injector settings: Ml/sec: 3, Volume: 6, 9:46:52 Catheter removed. 9:46:52 Proceeding to intervention. 9:47:00 Sheath upsized to a 6 Fr Short. 9:47:06 GUIDE 6FR AR 1.0 catheter ([id number]) opened to sterile field. 9:47:33 6 Fr xblad 3.5 guide catheter was inserted over the wire 9:47:37 FFR/IFR wire advanced. 9:47:39 Baseline FFR 1. 9:48:45 Heparin Bolus 4000 units I.V. was administered by Oracio Garrido RN; for anticoagulation; Verbal order read back and verified. 9:50:53 mCirc lesion measured at 0.72 with IFR 9:51:14 Integrilin (Bolus 2mg/ml) 5 ml I.V. was administered by Oracio Garrido RN; for antiplatelet therapy; Verbal order read back and verified. 9:51:22 Integrilin (Bolus 2mg/ml) 5 ml wasted was administered by Oracio Garrido RN; to sharp's; Verbal order read back and verified. 9:51:54 Place stent Inflation Number: 1 A POPEYE RX 2.25 x 34 stent ([id number]) was prepped and advanced across the Mid CX 90. The stent was deployed at 17 JAROD for 0:10 (min:sec) 0. 9:52:00 Inflation number: 2 The stent balloon was then re-inflated across the Mid CX 0 to 21 JAROD for 0:10 (min:sec) . 9:52:41 Stent catheter was removed intact over wire. 9:52:50 CHOICE PT Extra Support 182cm wire ([id number]) opened to sterile field. 9:54:45 Wire redirected to lad. 9:54:52 Baseline FFR 1. 9:54:59 pLAD lesion measured at 0.68 with IFR 9:56:00 Inflate balloon Inflation number: 1 A EUPHORA 3.0 x 30 Balloon ([id number]) was prepped and advanced across the Prox LAD 90, then inflated to 19 JAROD for 0:10 (min:sec) 0. 9:56:35 Balloon removed over the wire. 9:56:38 Wire removed. 9:56:52 choice pt wire advanced. 9:58:10 Wire removed. 9:58:13 Guide catheter removed. 9:58:31 GUIDE 6FR XBLAD 3.5 SH catheter ([id number]) opened to sterile field. 9:59:20 6 Fr xblad 3.5 sh guide catheter was inserted over the wire 9:59:27 choice pt wire advanced. 10:00:14 Wire advanced across lesion. 10:01:18 Inflate balloon Inflation number: 3 A EUPHORA 1.5 x 15 Balloon ([id number]) was prepped and advanced across the Mid CX 90, then inflated to 21 JAROD for 0:10 (min:sec) 0. 10:01:44 Balloon removed over the wire. 10:03:02 Place stent Inflation Number: 1 A POPEYE RX 3.0 x 12 stent ([id number]) was prepped and advanced across the LMCA 90. The stent was deployed at 17 JAROD for 0:10 (min:sec) 0. 10:03:52 Stent catheter was removed intact over wire. 10:03:55 Wire removed. 10:03:55 Guide catheter removed. 10:04:02 EXOSEAL 6Fr (EX600) opened to sterile field. 10:04:15 Sheath removed intact; hemostasis achieved with Exoseal to the Right Femoral artery. 10:04:26 ACT drawn and resulted at 285 seconds. (normal therapeutic range 180-240 seconds). 10:04:54 Procedure ended.(Physican Out) 10:05:22 Plavix 600 mg P.O. was administered by Oracio Garrido RN; for antiplatelet therapy; Verbal order read back and verified. 10:05:45 Fluoroscopy time 07.80 minutes. 10:05:48 Flurop Dose total: 855 10:05:48 Fluoroscopy dose: 855 mGy 10:05:55 Dose Area Product 94026 mGy/cm. 10:05:58 Contrast amount:Isovue 300 143ml. 10:06:02 Maximum allowable dose exceeded? No. 10:06:03 Sharps counted by scrub and verified by R.N. 10:06:04 Insertion/operative site no bleeding no hematoma. 10:06:07 Post-op/insertion site Right Femoral artery dressed using a 4 x 4 and Tegaderm. 10:06:08 Post Procedure Pulses reassessed and unchanged 10:06:11 Post procedure rhythm: unchanged. 10:06:14 Estimated blood loss: 5 ml 10:06:16 Post procedure instruction explained to patient.Patient verbalizes understanding. 10:06:18 Patient needs reinforcement of post procedure teaching. 10:09:40 Fentanyl 50 mcg I.V. was administered by Oracio Garrido RN; for sedation; Verbal order read back and verified. 10:10:16 Procedure type changed to Cath procedure, Diagnostic procedure, C, [facility] w/Coronaries, FFR/IVUS, FFR Initial, FFR Additional, Sedation Charges, Moderate Sedation up to 30 minutes, PCI procedure, Coronary Stent, Coronary Stent Initial x2, PTCA, PTCA Initial, Hemochron ACT Test 10:10:18 Procedure and supply charges have been captured, reviewed, submitted and are correct. 10:10:23 Procedure Complication : No complications 10:10:25 Vital chart was stopped 10:10:27 [facility] Findings: MVD- PCI performed (see procedure note) 10:10:28 Operative report dictated upon procedure completion. 10:10:29 See physician's report for complete and final results. 10:10:32 Report given to Pre/Post Procedure Room. 10:10:34 Patient transfered to Pre/Post Procedure Room with Stretcher. 10:10:36 Procedure ended. 10:10:36 Full Disclosure recording stopped 10:10:55 End room use (Document Last) Intervention Summary Intervention Notes Time ActionType Lesion and Equipment Used Action# Pressure Duration Attributes 9:51:54 Place stent Mid CX POPEYE RX 2.25 x 1 17 00:10 34 stent ([id number]) 9:52:00 Reinflate Mid CX POPEYE RX 2.25 x 2 21 00:10 stent 34 stent balloon ([id number]) 9:56:00 Inflate Prox LAD EUPHORA 3.0 x 1 19 00:10 balloon 30 Balloon ([id number]) 10:01:18 Inflate Mid CX EUPHORA 1.5 x 3 21 00:10 balloon 15 Balloon ([id number]) 10:03:02 Place stent LMCA POPEYE RX 3.0 x 1 17 00:10 12 stent ([id number]) Device Usage Item Name Manufacture Quantity Catalog Number Hospital Part Current Minimal Lot# / Charge Number Stock Stock Serial# Code ACIST Syringe Acist 1 99466 238175 357817 873211 20 (01400) Medical Systems Inc Bag Decanter Microtek 1 2001S 241211 70654 154858 5 (2001S) Medical Inc. Medline Cath Medline 1 [id number] 654030 63664 745072 5 Pack ([id number]) ACIST Hand Acist 1 84584 590842 744507 389548 5 Control Medical (91016) Systems Inc ACIST Manifold Acist 1 04275 142989 706604 777957 5 (82176) Medical Systems Inc DIAGNOSTIC Cardinal 1 [id number] 364016 09381 913412 30 Multipack 5Fr Health catheter set ([id number]) Tegaderm 4 x 4 3M 1 1626W 346044 661332 091427 5 (1626W) SHEATH 5FR Terumo 1 [id number] 603918 501276 591316 5 [place] ([id number]) EMERALD Guide Cardinal 1 502-884 191323 839741 876995 5 Wire (553-609) Health MULTIPACK Cardinal 1 433147 5 Pigtail 5 Fr Health catheter MULTIPACK JL Cardinal 1 484388 5 4.0 5Fr Health catheter MULTIPACK 3DRC Cardinal 1 400971 5 5Fr catheter Health [place] 1 36168P 758569 146049889 513774 5 Verrata Plus pressure wire (42205Q) INFLATOR Merit Merit 1 [id number] 203637 162708 005592 15 BasixVamosa Medical (WS8649) SHEATH 6FR Terumo 1 OSD586 697307 483068 023269 40 [place] ([id number]) GUIDE 6FR Cardinal 1 [id number] 145179 912253 959971 10 XBLAD 3.5 Health catheter (70862765) GUIDE 6FR AR Medtronic 1 [id number] 656324 42365 455307 1 1.0 catheter ([id number]) POPEYE RX 2.25 x Medtronic 1 [id number] 871811 0426552 734870 5 [id number] 34 stent ([id number]) CHOICE PT [place] 1 [id number] 548585 135040 646700 5 Extra Support Scientific 182cm wire ([id number]) EUPHORA 3.0 x Medtronic 1 [id number] 314025 798019 067105 5 [id number] 30 Balloon ([id number]) GUIDE 6FR Cardinal 1 [id number] 614693 615420 290666 3 XBLAD 3.5 SH Health catheter ([id number]) EUPHORA 1.5 x Medtronic 1 [id number] 780791 415141 128777 5 [id number] 15 Balloon ([id number]) POPEYE RX 3.0 x Medtronic 1 [id number] 211976 1471363 835623 5 [id number] 12 stent ([id number]) EXOSEAL 6Fr Cardinal 1 EX600 041265 716244 796545 10 (EX600) Health Signature Audit [place] Stage Time Signature Unsigned Intra-Procedure 08/08/2019 Lilibeth Lance 10:14:30 AM RT(R) Intra-Procedure 08/08/2019 Oracio 10:15:04 AM Hema CONROY Intra-Procedure 08/08/2019 Abdulkadir Vidales 10:15:22 AM Signatures Performing Physician : Signature : Abdulkadir Vidales MD Date : Time : Monitor : Lilibeth Natalio RT Signature : Date : Time : Nurse : Oracio Lorigan Signature : RN Date : Time : [address] [place] [address]
--- NOTE | ~2019-08-08 | HEMODYNAMI ---
PATIENT:BRIAN BARBOSA MEDICAL RECORD: [id number] : 69 [id number] ADMISSION DATE: 08/08/19 Generatedon:08/09/201913:06 Patient name: BRIAN BARBOSA Patient #: [id number] : 1965 Date of study: 08/09/2019 Page: Of Hemodynamic Procedure Report Patient Data Patient Demographics Procedure consent was obtained First Name: BRIAN Gender: Female Last Name: CHELSEY : 1965 Middle Initial: M Age: 54 year(s) Patient #: [id number] Race: SSN: [id number] Additional ID: [id number] Contact details Address: [address] [place] [address] State: [place] City: [facility] Zip code: [address] Past Medical History History of disease Date Diagnosis Comments CAD Allergies Allergen Reaction Date Comments Reported Sulfa drugs 04/26/2015 Contrast 04/26/2015 Iodine 12/31/2017 Sulfa drugs 12/31/2017 Other allergy 01/04/2018 IODINE, SULFA Admission Admission Data Admission Date: 08/08/2019 Admission Time: 10:07 Arrival Date: 08/08/2019 Arrival Time: 9:00 Admit Source: Other Insurance Payor: Medicare, Room #: D.2108 Medicaid HIC #: [id number] Height (in.): 59.06 BSA: 1.5 (m2) Height (cm.): 150 BMI: 24.89 (kg/m2) Weight (lbs.): 123.46 Weight (kg.): 56 Lab Results Lab Result Date: 08/08/2019 Lab Result Time: 0:00 Biochemistry Name Units Result Min Max BUN mg/dl 20 --(----)*- 7 18 Creatinine mg/dl 0.9 --(-*--)-- 0.6 1.3 eGFR ml/min 70.78552 *-(----)-- 90 120 NONAFRICAN CBC Name Units Result Min Max Hemoglobin g/dl 11.2 *-(----)-- 13.5 17.5 Procedure Procedure Types Cath Procedure Diagnostic Procedure Sedation Charges Moderate Sedation up to 15 minutes PCI Procedure Coronary Stent Coronary Stent Initial PTCA PTCA Additional x2 Hemochron ACT Test Procedure Description Procedure Date Procedure Date: 08/09/2019 Procedure Start Time: 12:42 Procedure End Time: 13:02 Procedure Staff Name Function Abdulkadir Vidales MD Performing Physician Brian Muñoz RT Monitor Wai Wray RN Nurse Juany Baker RT Scrub Procedure Data Cath Procedure Fluoroscopy Diagnostic fluoroscopy Total fluoroscopy Time: 6.6 time: 6.6 min min Diagnostic fluoroscopy Total fluoroscopy dose: 434 dose: 434 mGy mGy Contrast Material Contrast Material Type Amount (ml) Isovue 300 82 Entry Location Entry Primary Successful Side Size Upsize Upsize Entry Closure Succes sful Closure Location (Fr) 1 (Fr) 2 (Fr) Remarks Device Remarks Femoral Left 6 Fr Exoseal artery Short Estimated blood loss: 10 ml Procedure Complications No complications Procedure Medications Medication Administration Route Dosage Oxygen etCO2 Nasal cannula 2 l/min Lidocaine 2% added to field 20 Heparin Flush Bag added to field 2 bags (1000units/500ml NS) 0.9% NaCl I.V. 100 ml/hr Versed I.V. 2 mg Fentanyl I.V. 100 mcg Versed I.V. 2 mg Fentanyl I.V. 100 mcg Heparin Bolus I.V. 4000 units Versed I.V. 1 mg Hemodynamics Rest BSA: 1.5 (m2) HGB: 11.2 (g/dl) O2 Consumption: Estimated: 154.79 (ml/min) O2 Con sumption indexed: Estimated:103.19 (ml/min/m) Heart Rate: 86 (bpm) Snapshots Pre Cath Intra NCS Post Cath Vital Signs Time Heart Resp SPO2 etCO2 NIBP (mmHg) Rhythm Pain Status Sedation Rate (ipm) (%) (mmHg) Level (bpm) 12:21:49 71 14 98 0 122/76(104) NSR 5 (11) , 10(A) Very distressing 12:25:59 77 13 98 29.5 122/74(92) NSR 5 (11) , 10(A) Very distressing 12:30:05 87 20 98 24.9 126/85(101) NSR 5 (11) , 10(A) Very distressing 12:34:15 87 12 99 37.1 113/74(92) NSR 5 (11) , 10(A) Very distressing 12:38:20 94 10 98 36.3 114/73(93) NSR 5 (11) , 10(A) Very distressing 12:42:26 93 16 98 43.1 112/74(94) NSR 0 (11) , No 9(A) pain 12:46:34 97 19 98 40 111/64(85) NSR 0 (11) , No 9(A) pain 12:50:42 100 15 98 44.6 107/65(87) NSR 0 (11) , No 9(A) pain 12:54:46 95 26 98 43.8 122/73(86) NSR 0 (11) , No 9(A) pain 12:58:55 93 14 97 42.3 108/69(90) NSR 0 (11) , No 10(A) pain Medications Time Medication Route Dose Verified Delivered Reason Notes Effectiveness by by 12:19:53 Oxygen etCO2 2 Abdulkadir Buffie used for Nasal l/min Sobeida Wray RN procedure cannula 12:20:03 Lidocaine 2% added 20ml Abdulkadir Abdulkadir for local to vial Sobeida Vidales MD anesthetic field 12:20:11 Heparin Flush added 2 Abdulkadir Abdulkadir used for Bag to bags Sobeida Vidales MD procedure (1000units/500ml field NS) 12:20:43 0.9% NaCl I.V. 100 Abdulkadir Buffie Per physician ml/hr Sobeida Wray RN 12:33:14 Versed I.V. 2 mg Abdulkadir Buffie for sedation Sobeida Wray RN 12:33:22 Fentanyl I.V. 100 Abdulkadir Buffie for sedation mcg Sobeida Wray RN 12:38:07 Versed I.V. 2 mg Abdulkadir Buffie for sedation Sobeida Wray RN 12:38:11 Fentanyl I.V. 100 Abdulkadir Buffie for sedation mcg Sobeida Wray RN 12:44:06 Heparin Bolus I.V. 4000 Abdulkadir Buffie for verif ied units Sobeida Wray RN anticoagulation with dr vidales 12:47:35 Versed I.V. 1 mg Abdulkadir Buffie for sedation Sobeida Wray RN Procedure Log Time Note 12:00:49 Patient Height : 59.06 inches 12:00:49 Patient Weight : 123.46 lbs 12:01:56 Brian VILLALOBOS(R) sent for patient. Start room use. 12:01:58 Time tracking: Regular hours (M-F 7:00 - 5:00) 12:02:02 Plan of Care:Hemodynamics will remain stable., Cardiac rhythm will remain stable., Comfort level will be maintained., Respiratory function will remain adequate., Patient/ family verbilizes understanding of procedure., Procedure tolerated without complication., Recovers from procedure without complications.. 12:12:36 Patient received from PCU to CCL 1 Alert and oriented. Tansferred to table in Supine position. 12:12:40 Warm blankets applied, and briseida hugger turned on for patient comfort. 12:12:42 Signed procedure consent form obtained from patient. 12:12:42 Correct patient and procedure confirmed by team. 12:12:44 ECG and BP/O2 sat monitors applied to patient. 12:12:59 Lab results completed and on chart. 12:13:02 Risk of Mortality: .4 12:13:05 Risk of blood transfusion: 7.5 12:13:10 Risk of JOEY: 1.3 12:19:43 Vital chart was started 12:19:53 Oxygen 2 l/min etCO2 Nasal cannula was administered by Wai Wray RN; used for procedure; Verbal order read back and verified. 12:20:03 Lidocaine 2% 20ml vial added to field was administered by Abdulkadir Vidales MD; for local anesthetic; Verbal order read back and verified. 12:20:11 Heparin Flush Bag (1000units/500ml NS) 2 bags added to field was administered by Abdulkadir Vidales MD; used for procedure; Verbal order read back and verified. 12:20:43 0.9% NaCl 100 ml/hr I.V. was administered by Wai Wray RN; Per physician; Verbal order read back and verified. 12:30:01 Baseline sample Acquired. 12:30:07 Rhythm: sinus rhythm 12:30:08 Full Disclosure recording started 12:30:21 H&P Date Dictated: 07/27/2019 Within 30 days and on chart., H&P Addendum completed by physician on day of procedure. (MUST COMPLETE FOR ALL OUTPATIENTS). 12:30:22 Pre-procedure instructions explained to patient. 12:30:23 Pre-op teaching completed and patient verbalized understanding. 12:30:25 Family in patients room. 12:30:26 Patient NPO since Midnight. 12:30:38 Is the patient allergic to Iodine/contrast media? No. 12:30:39 Is patient on blood thinner?Yes 12:30:41 ACC The patient was administered the following blood thiners within the last 24 hours: ACCPlavix 12:30:43 Patient diabetic? Yes. 12:30:44 If diabetic: On Metformin? Yes 12:30:47 If on Metformin: Last Dose? 08/07/2019 12:30:49 Previous problem with sedation/anesthesia? No ? 12:30:50 Snore? Yes 12:30:51 Sleep apnea? No 12:30:52 Deviated septum? No 12:30:53 Opens mouth fully? Yes 12:30:54 Sticks out tongue? Yes 12:30:59 Airway obstruction? No ? 12:31:03 Dentures? No ? 12:31:07 Pre procedure: left dorsailis pedis pulse 1+ Palpable, but thready & weak; easily obliterated 12:31:10 Patient pain scale 0/10 ?. 12:31:23 IV patent on arrival in right forearm with 0.9% NaCl at [facility]. 12:31:30 Left groin area was prepped with chlora-prep and draped in sterile fashion 12:31:31 Alarms reviewed by R. N. 12:31:31 Sharps counted by scrub and verified by R.N. 12:31:32 Physician arrived 12:31:33 --------ALL STOP TIME OUT------ 12:31:34 Final Timeout: patient, procedure, and site verified with staff and physician. All members of the team are in agreement. 12:31:37 Left groin site verified by team. 12:31:41 Fire Safety Assessment: A--An alcohol-based skin anteseptic being used preoperatively., C--Open oxygen or nitrous oxide is being used., D--An ESU, laser, or fiber-optic light is being used. 12:31:45 Physical assessment completed. ASA score P 2 - A patient with mild systemic disease as per Abdulkadir Vidales MD. 12:31:50 2) 60-89 Mildly reduced kidney function, and other findings (as for stage 1) point to kidney disease. 12:31:52 Maximum allowable contrast dose (3.7 X eGFR X 0.75)194 ml. 12:31:57 Sedation plan: IV Moderate Sedation Medication:Versed, Fentanyl 12:32:17 Use device set Femoral Dx 12:32:20 Use device set TAUTH PCI 12:32:22 ACIST Syringe (78205) opened to sterile field. 12:32:23 Bag Decanter (2002S) opened to sterile field. 12:32:23 Medline Cath Pack ([id number]) opened to sterile field. 12:32:27 ACIST Hand Control (15131) opened to sterile field. 12:32:31 ACIST Manifold (99008) opened to sterile field. 12:32:33 Tegaderm 4 x 4 (1626W) opened to sterile field. 12:32:36 EMERALD Guide Wire (502-621) opened to sterile field. 12:32:37 INFLATOR Merit BasixCompak (ZM0557) opened to sterile field. 12:32:40 CHOICE PT Extra Support 182cm wire ([id number]) opened to sterile field. 12:32:53 SHEATH 6FR Evergreen (BRN427) opened to sterile field. 12:33:14 Versed 2 mg I.V. was administered by Wai Wray RN; for sedation; Verbal order read back and verified. 12:33:22 Fentanyl 100 mcg I.V. was administered by Wai Wray RN; for sedation; Verbal order read back and verified. 12:37:25 GUIDE 6FR AR 1.0 catheter (LN5OI36) opened to sterile field. 12:38:07 Versed 2 mg I.V. was administered by Wai Wray RN; for sedation; Verbal order read back and verified. 12:38:11 Fentanyl 100 mcg I.V. was administered by Wai Wray RN; for sedation; Verbal order read back and verified. 12:38:56 Pre PCI Site: Pala mRCA has 80% stenosis. 12:39:13 Pre PCI Site: Pala PDA has 99% stenosis. 12:39:24 ACC Pre-intervention LORRI Flow is 3. 12:42:05 Procedure started. 12:42:10 Local anesthetic to left femerol artery with Lidocaine 2% by Abdulkadir Vidales MD.INITIAL ACCESS ONLY 12:44:06 Heparin Bolus 4000 units I.V. was administered by Wai Wray RN; for anticoagulation; verified with dr vidales Verbal order read back and verified. 12:44:13 A 6 Fr Short sheath was inserted into the Left Femoral artery 12:44:23 6 Fr AR 1 guide catheter was inserted over the wire 12:45:18 Guide Catheter removed. unable to cannulate vessel. 12:45:39 GUIDE 6FR HS I catheter (LA6HSI) opened to sterile field. 12:45:50 6 Fr HS 1 guide catheter was inserted over the wire 12:46:23 Guide Catheter removed. pressure damping. 12:46:33 GUIDE 6FR HS I SH catheter ([id number]) opened to sterile field. 12:47:14 6 Fr HS 1 SH guide catheter was inserted over the wire 12:47:35 Versed 1 mg I.V. was administered by Wai Wray RN; for sedation; Verbal order read back and verified. 12:47:49 CPTXS wire advanced. 12:48:33 Wire advanced across lesion. 12:49:31 Inflate balloon Inflation number: 1 A EUPHORA 2.5 x 15 Balloon ([id number]) was prepped and advanced across the R PDA 99, then inflated to 12 JAROD for 0:10 (min:sec) . 12:49:42 Inflation number: 1 The EUPHORA 2.5 x 15 Balloon ([id number]) was reinflated across the Mid RCA 80, to 23 JAROD for 0:10 (min:sec) . 12:49:47 Balloon removed over the wire. 12:51:21 Place stent Inflation Number: 2 A POPEYE RX 2.5 x 12 stent ([id number]) was prepped and advanced across the R PDA 99. The stent was deployed at 15 JAROD for 0:10 (min:sec) 0. 12:52:39 Wire redirected to PLB. 12:52:49 Stent catheter was removed intact over wire. 12:54:28 Inflate balloon Inflation number: 1 A EUPHORA 2.0 x 12 Balloon ([id number]) was prepped and advanced across the 1st RPL 95, then inflated to 13 JAROD for 0:10 (min:sec) . 12:54:46 Wire redirected to PDA. 12:55:08 Inflation number: 3 The EUPHORA 2.0 x 12 Balloon ([id number]) was reinflated across the R PDA 0, to 13 JAROD for 0:10 (min:sec) . 12:55:38 Balloon removed over the wire. 12:55:39 Wire removed. 12:55:40 Guide catheter removed. 12:55:45 EXOSEAL 6Fr (EX600) opened to sterile field. 12:56:01 Sheath removed intact; hemostasis achieved with Exoseal to the Left Femoral artery. 12:56:03 Procedure ended.(Physican Out) 12:56:28 Fluoroscopy time 06.60 minutes. 12:56:32 Fluoroscopy dose: 434 mGy 12:56:32 Flurop Dose total: 434 12:56:38 Dose Area Product 70944 mGy/cm. 12:57:30 Contrast amount:Isovue 300 82ml. 12:57:33 Maximum allowable dose exceeded? No. 12:57:44 Sharps counted by scrub and verified by R.N. 12:57:52 Insertion/operative site no bleeding no hematoma. 12:58:09 Post-op/insertion site Left Femoral artery dressed using a 4 x 4 and Tegaderm. 12:58:11 Post Procedure Pulses reassessed and unchanged 12:58:14 Post-procedure physical assessment completed. ASA score P 2 - A patient with mild systemic disease as per Abdulkadir Vidales MD. 12:58:16 Post procedure rhythm: unchanged. 12:58:18 Estimated blood loss: 10 ml 12:58:20 Post procedure instruction explained to patient.Patient verbalizes understanding. 12:58:21 Patient needs reinforcement of post procedure teaching. 12:58:41 Procedure type changed to Cath procedure, Diagnostic procedure, Sedation Charges, Moderate Sedation up to 15 minutes, PCI procedure, Coronary Stent, Coronary Stent Initial, PTCA, PTCA Additional x2, Hemochron ACT Test 12:58:43 Procedure and supply charges have been captured, reviewed, submitted and are correct. 12:58:46 Procedure Complication : No complications 13:01:48 Vital chart was stopped 13:01:52 [facility] Findings: MVD- PCI performed (see procedure note) 13:01:53 Operative report dictated upon procedure completion. 13:01:53 See physician's report for complete and final results. 13:02:07 Report given to PCU. 13:02:09 Patient transfered to PCU with Bed. 13:02:11 Procedure ended. 13:02:11 Full Disclosure recording stopped 13:04:45 End room use (Document Last) 13:06:04 End room use (Document Last) 13:06:23 End room use (Document Last) Intervention Summary Intervention Notes Time ActionType Lesion and Equipment Used Action# Pressure Duration Attributes 12:49:31 Inflate R PDA EUPHORA 2.5 x 1 12 00:10 balloon 15 Balloon ([id number]) 12:49:42 Reinflate Mid RCA EUPHORA 2.5 x 1 23 00:10 balloon 15 Balloon ([id number]) 12:51:21 Place stent R PDA POPEYE RX 2.5 x 2 15 00:10 12 stent ([id number]) 12:54:28 Inflate 1st RPL EUPHORA 2.0 x 1 13 00:10 balloon 12 Balloon ([id number]) 12:55:08 Reinflate R PDA EUPHORA 2.0 x 3 13 00:10 balloon 12 Balloon ([id number]) Device Usage Item Name Manufacture Quantity Catalog Number Hospital Part Current M inimal Lot# / Charge Number Stock Stock Serial# Code ACIST Syringe Acist 1 54896 536653 337650 817484 2 0 (06897) Medical Systems Inc Bag Decanter Microtek 1 2001S 547292 26449 596161 5 () Medical Inc. Medline Cath Medline 1 [id number] 952657 36389 509395 5 Pack ([id number]) ACIST Hand Acist 1 43207 834462 137615 074797 5 Control Medical (90128) Systems Inc ACIST Manifold Acist 1 15661 213155 129307 112584 5 (69109) Medical Systems Inc Tegaderm 4 x 4 3M 1 1626W 114154 272376 873416 5 (1626W) EMERALD Guide Cardinal 1 502-455 218935 922027 512482 5 Wire (409-030) Health INFLATOR Merit Merit 1 ZJ1991 151455 800678 410463 1 5 Insiders@ Project (QW2133) CHOICE PT [place] 1 [id number] 226537 941073 642060 5 Extra Support Scientific 182cm wire ([id number]) SHEATH 6FR Terumo 1 TUM029 506706 499809 078295 4 0 Evergreen (DTE449) GUIDE 6FR AR Medtronic 1 WD4NA73 645456 66109 906370 1 1.0 catheter (IX6UV94) GUIDE 6FR HS I Medtronic 1 LA6HSI 525815 58239 619269 1 catheter (LA6HSI) GUIDE 6FR HS I Medtronic 1 [id number] 805567 70258 721397 1 SH catheter (GV0NWYCK) EUPHORA 2.5 x Medtronic 1 [id number] 212204 236289 909533 5 [id number] 15 Balloon ([id number]) POPEYE RX 2.5 x Medtronic 1 [id number] 644125 8140303 714993 5 [id number] 12 stent ([id number]) EUPHORA 2.0 x Medtronic 1 [id number] 937448 807110 675017 5 [id number] 12 Balloon ([id number]) EXOSEAL 6Fr Cardinal 1 EX600 831953 116302 098100 1 0 (EX600) Health Signature Audit Lucien Stage Time Signature Unsigned Intra-Procedure 08/09/2019 Brian Muñoz 1:06:04 PM RT(R) Intra-Procedure 08/09/2019 Wai Wray RN 1:06:23 PM Intra-Procedure 08/09/2019 Abdulkadir Vidales 1:06:40 PM [place] [address] [facility] [place] [address]
[~2019-08-08 06:45] MED LIST changes: +ATARAX 25 MG TA25 MG PO; +DALIRESP500 MCG; +METHOCARBAMOL750 MG NG; +OMNICEF300 MG PO; +PERCOCET 10-321 EAC1 PO; +SINGULAIR10 MG PO; +STERAPRED DS 1010 MG PO; +VIBRAMYCIN 100100 MG PO
[2019-08-08 07:32] VITALS: BP 93/67; BMI 24.7
[2019-08-08 07:59] LABS: BASOPHILS 0.2 % (0-2); EOSINOPHILS 0.9 % (0-7); HEMATOCRIT 36.9 % (36.0-48.0); HEMOGLOBIN 11.2 g/dL (12-16); IMMATURE GRANULOCYTES 2.8 % (0-5); LYMPHOCYTES 29.5 % (15-50); MCH 27.1 pg (26.0-34.0); MCHC 30.4 g/dL (31.0-37.0); MCV 89.3 fL (80.0-100.0); MONOCYTES 9.1 % (2-11); NEUTROPHILS 57.5 % (40-80); RBC 4.13 10x6/uL (4.00-5.40); RDW 16.2 % (11.5-14.5)
[2019-08-08 08:01] LABS: PLATELET COUNT 461 10x3/uL (130-400)
[2019-08-08 08:19] LABS: ANION GAP 12.9 mmol/L (8-16); CARBON DIOXIDE 28.4 mmol/L (21.0-32.0); CHOL - HDL RATIO 4.4 ratio (2.3-4.1); CREATININE - SERUM 0.9 mg/dL (0.6-1.3); LDL-HDL RATIO 2.7 ratio (1.5-3.5); POTASSIUM - SERUM 4.3 mmol/L (3.5-5.1)
--- NOTE | 2019-08-08 10:26 | NUR ---
PT RECEIVED VIA STRETCHER FROM [facility] FOR RECOVERY UNTIL INPATIENT BED IS AVAILABLE. PT SLEEPING BUT VERBALLY AROUSABLE. IV PATENT INFUSING PER ORDERS VIA R ARM. PT PLACED ON CARDIAC MONITORS AND O2 VIA NC AT 2L. R GROIN W 6FR EXOCELE, DRESSING CDI NO BLEEDING OR S/S HEMATOMA NOTED. LEG PINK AND WARM, PEDAL PULSES PALPABLE. HR 88, BP 98/69, RR 13, SAT 98. CALL LIGHT IN REACH, NO FAMILY PRESENT.
--- NOTE | 2019-08-08 10:44 | NUR ---
PT REMAINS SLEEPING, VSS. R GROIN SOFT, NO S/S HEMATOMA. PEDAL PULSES PALPABLE. CALL LIGHT IN REACH.
--- NOTE | 2019-08-08 11:30 | NUR ---
PT STILL SLEEPING COMFORTABLY, DENIES NEEDS. HR 76, BP 92/59, RR 14, SAT 96. R GROIN SOFT, DRESSING CDI NO BLEEDING OR S/S HEMATOMA NOTED. PEDAL PULSES PALPABLE. IV PATENT INFUSING VIA GRAVITY. CALL LIGHT IN REACH
--- NOTE | 2019-08-08 12:02 | NUR ---
PT AWAKE BUT DROWSY, PLACED ON BEDPAN, VOIDED 350 CC CLEAR YELLOW URINE. R GROIN SOFT, NO S/S HEMATOMA NOTED. PT C/O BACK PAIN, 03/11. HR 81, BP 94/62, RR 13, SAT 99. CALL LIGHT IN REACH
--- NOTE | 2019-08-08 12:21 | NUR ---
NORCO 10MG GIVEN PO PER ORDERS. DUE TO BP BEING LOW WILL HOLD OFF ON GIVING THE 2ND TAB AND SEE HOW THIS FIRST ONE WORKS. PT INFORMED.
--- NOTE | 2019-08-08 12:54 | NUR ---
PT SLEEPING, VSS. GROIN SOFT, DRESSING REMAINS CDI NO BLEEDING OR S/S HEMATOMA NOTED. CALL LIGHT IN REACH. WAITING ON BED ON MED 2.
--- NOTE | 2019-08-08 13:14 | NUR ---
PT SLEEPING, NO C/O VOICED. VSS. R GROIN SOFT, DRESSING REMAINS CDI NO BLEEDING OR S/S HEMATOMA NOTED. CALL LIGHT REMAINS IN REACH
--- NOTE | 2019-08-08 13:45 | NUR ---
PT TOLERATED FOOD TRAY W/O NAUSEA. R GROIN REMAINS SOFT, DRESSING CDI NO BLEEDING OR S/S HEMATOMA NOTED. REPORT CALLED TO NURSE ON MED 2 WHO WILL RESUME CARE.
--- NOTE | 2019-08-08 14:00 | NUR ---
PT AMBULATED TO BR, VOIDING W/O DIFFICULITY. IV HEPLOCKED. WILL TRANSFER TO [facility] 2 SOON ROOM CLEAN.
--- NOTE | 2019-08-08 14:25 | NUR ---
PT TRANSFERED TO [facility], ROOM 2108 VIA . PT HAD ALL BELONGINGS.
--- NOTE | 2019-08-08 14:27 | NUR ---
RECEIVED PATIENT TO ROOM 2108 AT THIS TIME. NO DISTRESS. PATIENT AWAKE, ALERT/ORIENTED. AMBULATED FROM WHEELCHAIR TO BED. CALL LIGHT PLACED WITHIN REACH.
--- NOTE | 2019-08-08 15:04 | NUR ---
DR. LU PAGED FOR NICOTINE PATCH, PATIENT WANTS PERCOCET THAT IS WHAT SHE IS ON AT HOME, AND DO WE NEED TO CONTINUE HER HOME MEDICATIONS? WAITING RETURN CALL.
--- NOTE | 2019-08-08 16:26 | NUR ---
MEDICATED FOR PAIN AT THIS TIME. NICOTINE PATCH TO LEFT DELTOID AREA.
[2019-08-08 17:36] VITALS: BP 96/58; Ht 149.9 cm; Wt 55.5 kg
--- NOTE | 2019-08-08 18:00 | NUR ---
RESTING IN BED WITH EYES OPEN. NO DISTRESS. DENIES NEEDS. ASKS THIS [employer]BON ACCOUNTANT WHO HER NURSE WILL BE TONIGHT, THANKED THIS CARBON ACCOUNTANT FOR EVERYTHING.
--- NOTE | 2019-08-08 19:22 | NUR ---
REPORT RECIEVED AND ROUNDING COMPLETE. PATIENT LAYING IN BED IN HIGH FOWLERS, PATIENT REQUESTED A PUDDING AND A LEMON UPPER SKAGIT SODA. GAVE THE PATIENT THIS SNACK ITEMS. PATIENT THEN STATES NO OTHER NEEDS AT THIS TIME. PAITENT WEARING NASAL CANNULA WITH O2 AT 2L. RAE HAS A RIGHT FOREARM PIV, PIV IS PATENT AND RUNNING FLUIDS AT THIS TIME. PIV SHOWS NO S/SX OF INFILTRATION. PATIENT SHOWS NO S/SX OF DISTRESS. PATIENT HAS A RIGHT GROIN DRESSING FROM CARDIAC CATH TODAY. SITE IS SOFT TO THE TOUCH WITH NO BLEEDING OR HEMATOMA SEEN. CALL LIGHT WITHIN REACH AND BED IN LOWEST LOCKED POSITION.
[2019-08-08 20:00] VITALS: BP 118/64
[2019-08-09 00:40] VITALS: BP 114/68
--- NOTE | 2019-08-09 01:56 | NUR ---
I have reviewed this patient and I concur with the Shift Assessment completed by the Licensed Practical Nurse today this shift.
[2019-08-09 05:43] VITALS: BP 113/70
--- NOTE | 2019-08-09 07:14 | NUR ---
REPORT RECIEVED. PT LYING ON RIGHT SIDE. RR EVEN AND UNLABORED. PT HEART CATH SITE FREE OF BLEEDING OR HEMATOMA. PT NPO FOR ANOTHER HEART CATH TODAY. PT HAS A R FA PIV THAT IS SL. BED LOCKED AND IN LOWEST POSITON, CALL LIGHT WITHIN REACH. WILL CTM
[2019-08-09 07:54] VITALS: BP 106/69
[2019-08-09 11:29] VITALS: BP 126/78
--- NOTE | 2019-08-09 13:08 | NUR ---
RECIEVED REPORT FROM FERNANDO IN THE SPECIAL EDUCATION TUTOR. PT TO BE BROUGHT TO ROOM SOON.
--- NOTE | 2019-08-09 13:23 | NUR ---
RECIEVED PT BACK TO ROOM FROM THE HR GENERALIST. VS 98/56, HR 85, O2 98% ON 3L NC. PT IS LYING FLAT AND TALKING ON PHONE. L GROIN FREE OF BLEEDING OR HEMATOMA. WILL CTM
--- NOTE | 2019-08-09 14:32 | NUR ---
I have reviewed this patient and I concur with the Shift Assessment completed by the Licensed Practical Nurse today this shift.
[2019-08-09 14:57] VITALS: BP 93/49
[2019-08-09] MEDS ORDERED: BAYER CHEWABLE81 MG PO (15:01)
--- NOTE | 2019-08-09 17:19 | NUR ---
DC PAPERWORK GONE OVER AND SIGNED WITH PT. ALL QUESTIONS ANSWERED. PIV REMOVED,CATH TIP FULLY INTACT. TELEMETRY REMOVED AND RETURNED TO BOARD CERTIFIED MUSIC THERAPIST. PT STATES HER RIDE IS ON THE WAY. ALL VALUBLES PACKED UP TO GO WITH PT. L GROIN CATH SITE FREE OF BLEEDING/ HEMATOMA. WILL CTM
--- NOTE | 2019-08-09 17:45 | NUR ---
PT ESCORTED TO FRONT ENTRANCE. ALL VALUBLES REMOVED FROM ROOM.
--- NOTE | 2019-08-10 08:24 | MORECARE ---
CASE MANAGEMENT DISCHARGE SUMMARY PATIENT: BRIAN BARBOSA UNIT: [id number] ADM DATE: 08/08/19 AGE: 54 : [birth year] SEX: F ROOM/BED: D.2108 AUTHOR: JONATHON BELTRAN PHYSICIAN: REFERRING PHYSICIAN: ELLEN LU MD DATE OF SERVICE: 08/10/19 Discharge Plan Patient Name: [facility]RIAN [facility]OSA [facility] [facility] 1965 Planned Disposition: Home Anticipated Discharge Date: 08/09/19 Discharge Date: 08/09/2019 Expected LOS: 1 Initial Reviewer: [email or web address] Initial Review Date: 08/10/2019 Generated: 08/10/19 9:24 am Coverage Notice Reviewer: [email or web address] Anabelle Treadwell Notice Issued Date-Time: 08/08/2019 17:23 Notice Type: Medicare Outpatient Observation Notice Notice Delivered To: Relationship to 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
--- NOTE | 2019-08-10 14:04 | OP ---
PATIENT NAME: BRIAN BARBOSA MEDICAL RECORD: [id number] :69 LOCATION:D.M2 D.2108 ADMISSION DATE:08/08/19 SURGEON: ELLEN LU MD DATE OF OPERATION: 08/08/2019 PROCEDURES: 1. PTCA stent left circumflex. 2. IFR left circumflex. 3. PTCA, LAD. 4. IFR, LAD. 5. PTCA stent left main. 6. Left heart catheterization. 7. Selective coronary angiography. 8. Left ventriculogram. INDICATION: Unstable angina and coronary artery disease. PROCEDURE IN DETAIL: After informed consent was obtained and after a detailed explanation of risks, benefits as well as alternative therapies, the patient elected to proceed with angiogram and angioplasty. The right femoral area was prepped and draped in normal sterile fashion. Right femoral artery was cannulated via modified Seldinger technique with placement of 76-Belarusian sheath. All catheters exchanged through this sheath. FINDINGS: The left ventriculogram was performed in standard 30-degree GRIMALDO view, reveals preserved cardiac wall motion, ejection fraction 50%. SELECTIVE CORONARY ANGIOGRAPHY: 1. Left main has 70% stenosis with pressure damping of the catheter. 2. Left anterior descending has previously placed stents with 70% in-stent restenosis, IFR was abnormal at 0.68. 3. Left circumflex has previously placed stents, these are patent; however, after the stents is 90% stenosis. IFR was abnormal at 0.72. 4. The right coronary has previously placed stents. There is 99% stenosis. There is in-stent restenosis of the PDA, 70%-80% stenosis in the mid vessel that is in-stent restenosis as well. PTCA STENT OF THE LEFT SYSTEM: The left main was addressed with a 3.0 x 12 mm Doc stent. The left circumflex was addressed with a 2.25 x 30 mm Doc stent. Left anterior was addressed with a 3.0 balloon taken to 21 atmospheres. Result was 0% residual throughout. OVERALL IMPRESSION: Successful percutaneous transluminal coronary angioplasty stent of the left main and circumflex as well as high pressure percutaneous transluminal coronary angioplasty of the left anterior descending for in-stent restenosis. All vessels going from 70% to 90% stenosis to 0% residual. PLAN: PTCA stent of the RCA in the a.m. TRANSINT:[id number] Voice Confirmation ID: [id number] DOCUMENT ID: [id number] OPERATIVE REPORT [id number] BRIAN BARBOSA, ELLEN MCCULLOUGH at 1404 CC: [id number] DICTATION DATE: 08/08/19 1011 SOCIETY EDITOR: 08/08/19 1218 DIS IN 08/09/19 [place] [id number] [place] [id number]
--- NOTE | 2019-08-10 14:04 | OP ---
PATIENT NAME: BRIAN BARBOSA MEDICAL RECORD: [id number] :69 LOCATION:D.M2 D.2108 ADMISSION DATE:08/08/19 SURGEON: ELLEN LU MD DATE OF OPERATION: 08/09/2019 PROCEDURES: 1. PTCA stent of the RCA PDA. 2. PTCA of the RCA PLV. 3. PTCA of the RCA. 4. Selective coronary angiography. INDICATIONS: Angina and coronary artery disease. PROCEDURE PERFORMED: After consent was obtained, after detailed description of risks, benefits as well as alternative therapies, the patient elected to proceed with angiogram and angioplasty. The left femoral area was prepped and draped in normal sterile fashion. Left femoral artery was cannulated via modified Seldinger technique with placement of 6-Yoruba sheath. All catheters exchanged through this sheath. FINDINGS: The right coronary has 70% in-stent restenosis in the mid vessel, 95% in-stent restenosis of the PDA. PDA was addressed with a 2.5 balloon and 2.5 x 12 mm Sullivan stent. This caused plaque shift into the PLV and ballooned this through the struts of the new stent with a 2.0 balloon. The mid RCA in-stent restenosis was ballooned with a 2.5 balloon taken to 23 atmospheres. Result was 0% residual throughout. OVERALL IMPRESSION: Successful percutaneous transluminal coronary angioplasty and stent of the right coronary artery going from 95% initial stenosis to 0% residual. TRANSINT:[id number] Voice Confirmation ID: [id number] DOCUMENT ID: [id number] ELLEN LU MD at 1404 CC: [id number] DICTATION DATE: 08/09/19 1644 LOOM CHANGER: 08/10/19 0324 DIS IN 08/09/19 [facility] [address] [place] [address]
--- NOTE | 2019-08-10 14:04 | DS ---
PATIENT:BRIAN SAINZ :69 MEDICAL RECORD: [id number] DISCHARGE SUMMARY ADMISSION DATE: 08/08/19 DISCHARGE DATE: 08/09/19 DATE OF SERVICE: 08/09/2019 DIAGNOSES: 1. Unstable angina. 2. Coronary artery disease. 3. Multivessel PTCA stent this admission, LAD, circumflex, left main and RCA. 4. Smoking. 5. Hypertension. 6. Hyperlipidemia. HOSPITAL COURSE: Mrs. Sainz presents with unstable anginal symptomatology, found to have significant disease of all 3 vessels, underwent successful PTCA stent as above, had no further angina, was discharged home with no change in medications as she is already on aspirin and Plavix. Follow up with [facility] in 1 month. TRANSINT:[id number] Voice Confirmation ID: [id number] DOCUMENT ID: [id number] ELLEN LU MD at 1404 CC: [id number] DICTATION DATE: 08/09/19 1645 STAFF REPORTER: 08/10/19 0850 DIS IN 08/09/19 [place] [id number] [place] [address]
== END 2019-08-09 17:51 | disposition home or self-care (01) ==
LOC: D.CATH 06:45 → D.CLR 10:07 → D.M2 10:07 → OBSVTIME 10:07 → D.M2 14:25
PROVIDERS: ADMIT Internal Medicine Interventional Cardiology; ATTEND Internal Medicine Interventional Cardiology
DX: I25.110 Atherosclerotic heart disease of native coronary artery with unstable angina pectoris (principal); F17.200 Nicotine dependence, unspecified, uncomplicated; I10 Essential (primary) hypertension; E78.5 Hyperlipidemia, unspecified
CPT/HCPCS: 93458; 93571; 93572; 92920; C9600 ×3

== ENCOUNTER → 2019-08-22 14:36 | Outpatient (CLI) | payer MEDICARE, MEDICAID ==
[2019-08-08 17:36] VITALS: BMI 24.7
== END | disposition home or self-care (01) ==
LOC: D.RAD 14:36 → D.RT 15:30
PROVIDERS: ATTEND Internal Medicine Pulmonary Disease
DX: J44.9 Chronic obstructive pulmonary disease, unspecified (principal)

== ENCOUNTER → 2019-11-30 10:02 | Outpatient (CLI) | payer MEDICARE, MEDICAID ==
[2019-08-08 17:36] VITALS: BMI 24.7
== END | disposition home or self-care (01) ==
LOC: D.RT 10:00
PROVIDERS: ATTEND Internal Medicine Pulmonary Disease
DX: J44.9 Chronic obstructive pulmonary disease, unspecified (principal)

== ENCOUNTER 2019-12-13 18:08 | Inpatient (IN) | payer MEDICARE, MEDICAID ==
[~2019-12-13] VITALS: Ht 149.9 cm; Wt 88.2 kg
[2019-12-13 19:36] LABS: BILIRUBIN NEGATIVE (NEGATIVE); GLUCOSE NEGATIVE (NEGATIVE); KETONE NEGATIVE (NEGATIVE); NITRITE NEGATIVE (NEGATIVE); SPECIFIC GRAVITY 1.025 (1.005-1.020); UROBILINOGEN NORMAL (NORMAL)
[2019-12-13 19:44] LABS: HEMATOCRIT 33.8 % (36.0-48.0); HEMOGLOBIN 10.2 g/dL (12-16); MCH 24.6 pg (26.0-34.0); MCHC 30.2 g/dL (31.0-37.0); MCV 81.6 fL (80.0-100.0); MEAN PLATELET VOLUME 9.5 fL (7.4-10.4); PLATELET COUNT 366 10x3/uL (130-400); RBC 4.14 10x6/uL (4.00-5.40); RDW 17.2 % (11.5-14.5)
[2019-12-13 19:57] LABS: INR 1.03 (0.85-1.17); PROTIME 13.5 SECONDS (11.6-15.0)
[2019-12-13 19:58] VITALS: BP 115/75
[2019-12-13 19:58] LABS: APTT 30.5 SECONDS (22.8-39.4)
[2019-12-13 20:05] LABS: CALC OSMOLALITY 281 mosm/kg (275-300); CALCIUM 9.1 mg/dL (8.5-10.1); CARBON DIOXIDE 26.7 mmol/L (21.0-32.0); CHLORIDE - SERUM 101 mmol/L (98-107); CREATININE - SERUM 0.8 mg/dL (0.6-1.3); GLUCOSE 131 mg/dL (74-106); SODIUM 139 mmol/L (136-145); UREA NITROGEN 17 mg/dL (7-18); eGFR NON AFRICAN AMERICAN 80 mL/min (90-120)
--- NOTE | 2019-12-13 20:08 | NUR ---
ROCEPHIN INFUSION COMPLETE
[2019-12-13 20:23] LABS: ALBUMIN 2.7 g/dL (3.4-5.0); ALKALINE PHOSPHATASE 60 U/L (30-120); ALT (SGPT) 15 U/L (10-68); BILIRUBIN - TOTAL 0.52 mg/dL (0.2-1.3); CKMB 0.7 U/L (0.0-3.6); CREATINE KINASE 121 UL (21-215); PROTEIN - SERUM 7.1 g/dL (6.4-8.2)
[2019-12-13 20:24] LABS: FERRITIN 263 ng/mL (3-244)
[2019-12-13 20:27] LABS: LDH 806 U/L (81-234); TROPONIN-I < 0.017 ng/mL (0.000-0.060)
[2019-12-13 20:41] LABS: EOSINOPHILS 1 % (0-7); LYMPHOCYTES 11 % (15-50); MONOCYTES 1 % (2-11); NEUTROPHILS 87 % (40-80); PLATELET ESTIMATE NORMAL
--- NOTE | 2019-12-13 21:11 | NUR ---
AZITHROMYCIN INFUSION COMPLETE
--- NOTE | 2019-12-13 22:29 | NUR ---
PT ARRIVED TO UNIT ACCOMPANIED BY ER STAFF. PT TRANSFERRED TO BED WITHOUT DIFFICULTY. ASSESSMENT COMPLETED, SEE FLOWSHEET. PIV IN LEFT UPPER ARM, SEE IV FLOWSHEET. WILL CONTINUE TO MONITOR.
[2019-12-13 22:54] VITALS: BP 112/79; BMI 23.6
[2019-12-13 23:00] VITALS: BP 106/77
[2019-12-14] VITALS (24 sets, daily range): BP systolic 89–127; BP diastolic 56–92; Ht 149.9 cm; Wt 88.2 kg
--- NOTE | 2019-12-14 01:00 | NUR ---
PT RESTING IN BED, NO ACUTE DISTRESS NOTED.
[2019-12-14 02:33] LABS: CKMB 0.6 U/L (0.0-3.6); CREATINE KINASE 109 UL (21-215); TROPONIN-I < 0.017 ng/mL (0.000-0.060)
--- NOTE | 2019-12-14 05:00 | NUR ---
PT RESTING IN BED, STATES SHE FEELS CONSTIPATED. WILL CONTINUE TO MONITOR.
--- NOTE | 2019-12-14 07:30 | NUR ---
REPORT RECEIVED. PT ON DROPLET ISOLATION/COVID PRECAUTIONS. IS A PUI. ON O2 AT 8L HIGH FLOW. GETS SOB ON EXERTION. HAS AN IV TO HER LEFT UPPER ARM WITH NS AT 5ML. PT IS ALERT AND ORIENTED. PT IS ON FSBS ACHS. VSS. WILL CONTINUE TO MONITOR.
[2019-12-14 07:37] LABS: BASOPHILS 0 % (0-2); EOSINOPHILS 0 % (0-7); HEMATOCRIT 29.6 % (36.0-48.0); IMMATURE GRANULOCYTES 0.6 % (0-5); LYMPHOCYTES 7.1 % (15-50); MCH 24.6 pg (26.0-34.0); MCHC 30.4 g/dL (31.0-37.0); MCV 80.9 fL (80.0-100.0); MEAN PLATELET VOLUME 9.5 fL (7.4-10.4); MONOCYTES 2.4 % (2-11); NEUTROPHILS 89.9 % (40-80); PLATELET COUNT 424 10x3/uL (130-400); RBC 3.66 10x6/uL (4.00-5.40); RDW 17.1 % (11.5-14.5)
[2019-12-14 07:46] LABS: ALBUMIN 2.5 g/dL (3.4-5.0); ALKALINE PHOSPHATASE 58 U/L (30-120); ALT (SGPT) 13 U/L (10-68); BILIRUBIN - TOTAL 0.37 mg/dL (0.2-1.3); CALC OSMOLALITY 281 mosm/kg (275-300); CALCIUM 9.3 mg/dL (8.5-10.1); CARBON DIOXIDE 27.2 mmol/L (21.0-32.0); CHLORIDE - SERUM 102 mmol/L (98-107); CKMB 0.8 U/L (0.0-3.6); CREATINE KINASE 75 UL (21-215); CREATININE - SERUM 0.9 mg/dL (0.6-1.3); GLUCOSE 161 mg/dL (74-106); MAGNESIUM - SERUM 1.6 mg/dL (1.8-2.4); PHOSPHOROUS 2.3 mg/dL (2.5-4.9); POTASSIUM - SERUM 3.8 mmol/L (3.5-5.1); PRO BNP 2450 pg/mL (0-125); PROTEIN - SERUM 7.9 g/dL (6.4-8.2); SODIUM 138 mmol/L (136-145); UREA NITROGEN 21 mg/dL (7-18); eGFR NON AFRICAN AMERICAN 70 mL/min (90-120)
[2019-12-14 07:47] LABS: TROPONIN-I < 0.017 ng/mL (0.000-0.060)
--- NOTE | 2019-12-14 08:08 | NUR ---
PT RUNNING TEMP OF 100 ORAL. TYLENOL GIVEN.
--- NOTE | 2019-12-14 09:30 | NUR ---
PT O2 TURNED DOWN TO 7L HF. CURRENTLY SATURATING AT 99%. WILL CONTINUE TO MONITOR.
--- NOTE | 2019-12-14 11:14 | NUR ---
DR RODRIGUEZ ROUNDING ON PT AT THIS TIME. PICC LINE ORDERED.
--- NOTE | 2019-12-14 13:15 | NUR ---
DR RAINER MOSER ON PT.
[2019-12-14 13:55] LABS: CKMB 0.6 U/L (0.0-3.6); CREATINE KINASE 62 UL (21-215)
[2019-12-14 13:56] LABS: TROPONIN-I < 0.017 ng/mL (0.000-0.060)
--- NOTE | 2019-12-14 16:33 | NUR ---
INFECTION CONTROL NURSE, DUKE, CALLED AND STATED THAT PT IS NEGATIVE FOR COVID. TAKEN OUT OF ISOLATION PRECAUTIONS. VASCULAR ACCESS NURSE, DAMASO, UP HERE TO PLACE PICC LINE. CONSENT SIGNED. VANCOMYCIN STILL INFUSING. WILL HANG AZITHROMYCIN WHEN PICC LINE PLACED.
--- NOTE | 2019-12-14 17:08 | NUR ---
NEW LINES AND NEW BAGS OF FLUID HUNG FOR PICC LINE.
--- NOTE | 2019-12-14 18:37 | NUR ---
PT TRANSFERRED FROM 2313 TO 2307.
--- NOTE | 2019-12-14 21:15 | NUR ---
PT OOB TO CAMMODE WITHOUT ASSIST IN AMBULATION, CLEAR YELLOW VOID NOTED, PERICARE DONE BY PT, PT BACK IN BED AND REPOSITIONED FOR COMFORT, VSS, DENIES FURTHER NEEDS AT THIS TIME
--- NOTE | 2019-12-14 22:30 | NUR ---
CALL LIGHT PRESSED BY PT, RN AT BEDSIDE, PT AMBULATED TO CAMMODE, YELLOW VOID NOTED, PT COMPLETED PERICARE AND DENIES NEEDS FOR ASSIST, REPOSITIONED BACK IN BED FOR COMFORT, CALL LIGHT IN REACH, BED ALARM ON, WILL CONTINUE TO MONITOR
--- NOTE | 2019-12-14 22:50 | NUR ---
PT PRESSED CALL LIGHT, RN AT BEDSIDE, PT C/O GNERALIZED PAIN STATING "FROM FIBROMYALGIA" WHEN ASKED LOCATION OF PAIN, PT STATED " CHRONIC PAIN FROM FIBROMYALGIA" PRN PAIN MED GIVEN PER SYDNI/CHRISTINA IRIZARRY, NSR ON CM, PT STATED CONCERNS ABOUT NOT RECEIVING HOME FIBROMYALGIA MEDICATIONS AND ASKED IF NURSE WOULD TALK TO PHYSICIAN TOMORROW ABOUT MEDS PT STATED MEDS " LYRICA & DANTRIUM", WILL NOTIFY PHYSICIAN IN MORNING AND RN, PT DENIES FURTHER NEEDS AT THIS TIME, WILL CONTINUE TO MONITOR
[2019-12-15] VITALS (24 sets, daily range): BP systolic 90–126; BP diastolic 52–84
--- NOTE | 2019-12-15 05:00 | NUR ---
PT HAS BUPRENORPHINE TRANSDERMAL 10MCG/HR PATCH ON RIGHT UPPER BACK/SHOULDER, PT STATES SHE GETS PATCH FROM PAIN CLINIC, ALSO PT OPENED PERSONAL BAG AND REMOVED MULTIPLY BOTTLES OF HOME MEDICATIONS, DISCUSSED WITH PT ABOUT SENDING MEDICATIONS TO PHARMACY, LABOR CONCILIATOR AMANDA AT BEDSIDE THROUGHOUT DISCUSSION, PT INFORMED OF ENTIRE PROCESS BY LABOR CONCILIATOR AMANDA, PT HAD NO CONCERNS OR QUESTIONS, AT BEDSIDE BOTH RN'S AND PT COUNTED AND RECORDERD EACH MEDICATION AND PLACED IN PHARMACY PACKAGING BAG, COPY OF MEDICATION RECORDS GIVEN TO PT AND COPY PLACED IN PT CHART, MEDICATIONS SENT TO PHARMACY BY LABOR CONCILIATOR AMANDA, NO FURTHER AT THIS TIME WILL NOTIFY ONCOMING RN OR PHYSICIAN.
--- NOTE | 2019-12-15 05:45 | NUR ---
PT ASSISTED TO BEDSIDE COMMODE PER REQUEST, PT VSS NO ACUTE DISTRESS NOTED AND CALLL LIGHT IN REACH OF PT, PT PRESSED CALL LIGHT AFTER FINISHING AND NOTIFIED FEELING SOB, SPO2% 85-90'S ON CM, OTHER VSS, ASSISTED TO BED AND REPOSITIONED FOR COMFORT, HFNC INCREASED AND PT RELAXED, RN AT BEDSIDE FOR DURATION UNTIL PT DENIED SOB OR DISCOMFORTS AND VSS, CALL LIGHT IN REACH, BED ALARM ON, WILL CONTINUE TO MONITOR
[2019-12-15 05:50] LABS: BASOPHILS 0 % (0-2); EOSINOPHILS 0 % (0-7); HEMATOCRIT 27.4 % (36.0-48.0); HEMOGLOBIN 8.1 g/dL (12-16); IMMATURE GRANULOCYTES 0.4 % (0-5); LYMPHOCYTES 9.7 % (15-50); MCH 24.3 pg (26.0-34.0); MCHC 29.6 g/dL (31.0-37.0); MCV 82.3 fL (80.0-100.0); MEAN PLATELET VOLUME 9.3 fL (7.4-10.4); MONOCYTES 4.3 % (2-11); NEUTROPHILS 85.6 % (40-80); PLATELET COUNT 355 10x3/uL (130-400); RBC 3.33 10x6/uL (4.00-5.40); RDW 17.2 % (11.5-14.5)
[2019-12-15 06:12] LABS: D-DIMER-QUANTITATIVE 0.82 ug/mLFEU (0.20-0.54)
[2019-12-15 06:13] LABS: WBC 10.3 10x3/uL (4.8-10.8)
[2019-12-15 06:21] LABS: ALKALINE PHOSPHATASE 45 U/L (30-120); ALT (SGPT) 11 U/L (10-68); BILIRUBIN - TOTAL 0.29 mg/dL (0.2-1.3); CARBON DIOXIDE 28.4 mmol/L (21.0-32.0); CHLORIDE - SERUM 105 mmol/L (98-107); GLUCOSE 151 mg/dL (74-106); POTASSIUM - SERUM 3.8 mmol/L (3.5-5.1); PROTEIN - SERUM 6.6 g/dL (6.4-8.2); SODIUM 140 mmol/L (136-145)
[2019-12-15 06:23] LABS: CALC OSMOLALITY 287 mosm/kg (275-300); CREATININE - SERUM 0.6 mg/dL (0.6-1.3); LDH 493 U/L (81-234); UREA NITROGEN 28 mg/dL (7-18); eGFR NON AFRICAN AMERICAN > 90 mL/min (90-120)
[2019-12-15 06:37] LABS: C-REACTIVE PROTEIN 21.8 mg/dL (0.0-0.9)
--- NOTE | 2019-12-15 10:17 | NUR ---
Nutrition follow-up: Diet: ADA PO intake remains poor Labs reviewed; CRP: 21.8 Wt: 118# Will continue to provide food choices and honor food preferences. Will offer nutritional supplements. RDN following.
--- NOTE | 2019-12-15 17:06 | MORECARE ---
CASE MANAGEMENT DISCHARGE SUMMARY PATIENT: BRIAN BARBOSA UNIT: [id number] ADM DATE: 12/13/19 AGE: 54 : 69 SEX: F ROOM/BED: D.2308 AUTHOR: DEVIN,DOC PHYSICIAN: REFERRING PHYSICIAN: MIGUEL RODRIGUEZ DO DATE OF SERVICE: 12/15/19 Discharge Plan Patient Name: BRIAN BARBOSA Facility: [facility]:[place] : 1965 Planned Disposition: Home Anticipated Discharge Date: Discharge Date: Expected LOS: Initial Reviewer: [email or web address] Initial Review Date: 12/14/2019 Generated: 12/15/19 6:05 pm Comments DCP- Discharge Planning Updated by [email or web address]: Ifeoma Moran on 12/15/19 4:[address] LATE ENTRY 12/14/19 Patient Name: BRIAN BARBOSA Admission Status: ER Accout number: [id number] Admission Date: 12-13-2019 : 1965 Admission Diagnosis:ACUTE AND CHRONIC RESPIRATORY FAILURE WITH HYPERCAPNIA Attending: MIGUEL RODRIGUEZ Current LOS: 2 Anticipated DC Date: Planned Disposition: Home Primary Insurance: [facility] MEDICARE SOLUTIONS Discharge Planning Comments: CM met with patient to complete initial dc planning assessment. CM educated patient on the CM role and verbal consent given by patient to complete assessment. Patient lives at home alone where she is independent with her care. At discharge patient plans to return home and feels this is a safe discharge. CM discussed availability of home health, rehab services, and medical equipment. Her daughter will be her automobile drivers home. 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 Patient denied known discharge needs at this time. CM will continue to follow and will assist as needed with dc plans/needs. Vegetable Farm Manager: Ifeoma Moran DCPIA - Discharge Planning Initial Assessment Updated by [email or web address]: Ifeoma Moran on 12/15/19 5:03 pm * Is the patient Alert and Oriented? Yes * How many steps to enter\exit or inside your home? * PCP CABRERA * Pharmacy [facility] * Preadmission Environment Home Alone * ADLs Independent * Equipment Nebulizer * Other Equipment HOME / PORTABLE 02, NEBULIZER, WALKER, CANE, SHOWER CHAIR * List name and contact numbers for known caregivers / representatives who currently or will assist patient after discharge: ALBERTO NICHOLS - DAUGHTER - [phone] * Verbal permission to speak to the caregivers and representatives has been obtained from the patient. Yes * Community resources currently utilized Other * Please name any agencies selected above. [employer] - [employer]TING [employer]ER * Additional services required to return to the preadmission environment? No * Can the patient safely return to the preadmission environment? Yes * Has this patient been hospitalized within the prior 30 days at any hospital? No Patient Name: BRIAN BARBOSA Page [phone] at 1706 All edits/amendments must be made on the electronic document DICTATION DATE: 12/15/191705 CHECK PROCESSOR: RONNA 12/15/191705 RPT#: [id number] DC DATE: STATUS: ADM IN [facility] [address] [place] [address] END OF REPORT
--- NOTE | 2019-12-15 19:30 | NUR ---
SHIFT ASSESSMENT COMPLETED, SEE FLOWSHEET. PT AWAKE ALERT AND CONVERSANT. CO PAIN AND ANXIETY RELATED TO NOT HAVING HER MEDICATIONS DURING THIS STAY. PT COOPERATIVE AND CALM. VSS CPOC
--- NOTE | 2019-12-15 20:47 | NUR ---
HS MEDICATIONS RECIEVED SEE MAR FOR ADMINISTRATION
--- NOTE | 2019-12-15 23:30 | NUR ---
REASSESSMENT COMPLETED SEE FLOWSHEET
[2019-12-16] VITALS (11 sets, daily range): BP systolic 113–142; BP diastolic 64–86
--- NOTE | 2019-12-16 03:45 | NUR ---
REASSESSMENT COMPLETED SEE FLOWSHEET VSS CPOC
--- NOTE | 2019-12-16 05:15 | NUR ---
PATIENT REQUESTED PRN MEDICATION FOR HEADACHE 05/11 - PT STATES ITS A "MIGRAINE HEADACHE" SEE MAR FOR ADMINISTRATION
[2019-12-16 05:40] LABS: BASOPHILS 0.1 % (0-2); EOSINOPHILS 0 % (0-7); HEMATOCRIT 27.8 % (36.0-48.0); HEMOGLOBIN 8.3 g/dL (12-16); IMMATURE GRANULOCYTES 0.9 % (0-5); LYMPHOCYTES 6.3 % (15-50); MCH 24.3 pg (26.0-34.0); MCHC 29.9 g/dL (31.0-37.0); MCV 81.5 fL (80.0-100.0); MEAN PLATELET VOLUME 9.2 fL (7.4-10.4); MONOCYTES 6.3 % (2-11); NEUTROPHILS 86.4 % (40-80); PLATELET COUNT 333 10x3/uL (130-400); RBC 3.41 10x6/uL (4.00-5.40); RDW 17.1 % (11.5-14.5)
[2019-12-16 05:46] LABS: WBC 14.4 10x3/uL (4.8-10.8)
[2019-12-16 05:58] LABS: ALBUMIN 2.2 g/dL (3.4-5.0); ALKALINE PHOSPHATASE 41 U/L (30-120); ALT (SGPT) 9 U/L (10-68); CALC OSMOLALITY 286 mosm/kg (275-300); CALCIUM 8.1 mg/dL (8.5-10.1); CARBON DIOXIDE 26.4 mmol/L (21.0-32.0); CHLORIDE - SERUM 106 mmol/L (98-107); CREATININE - SERUM 0.8 mg/dL (0.6-1.3); GLUCOSE 154 mg/dL (74-106); POTASSIUM - SERUM 3.3 mmol/L (3.5-5.1); PROTEIN - SERUM 6.5 g/dL (6.4-8.2); SODIUM 141 mmol/L (136-145); UREA NITROGEN 21 mg/dL (7-18); eGFR NON AFRICAN AMERICAN 80 mL/min (90-120)
--- NOTE | 2019-12-16 08:32 | NUR ---
UP IN BED AT THIS TIME AWAKE. DENIES ANY NEEDS. VSS. NO ACUTE DISTRESS NOTED. CALL LIGHT AND PERSONAL ITEMS IN REACH. PT ALERT AND ORIENTED. WILL CONTINUE PLAN OF CARE.
--- NOTE | 2019-12-16 10:31 | NUR ---
PT COMPLAINT OF FEELING OF BURNING WITH URINATION. PER PHYSICIAN ORDERS, SPECIMEN SENT TO LAB FOR UA TEST. PT ALSO NOTED C/O HEADACHE, PHYSICIAN AWARE, ORDERS PLACED. VSS. WILL CONTINUE PLAN OF CARE.
--- NOTE | 2019-12-16 10:47 | NUR ---
BUTYASMINS PATCH DCD AT THIS TIME PER PHYSICIAN ORDER.
--- NOTE | 2019-12-16 11:02 | NUR ---
PER DR RODRIGUEZ, KWAKU TO TRANSFER TO FLOOR.
[2019-12-16 11:09] LABS: BILIRUBIN NEGATIVE (NEGATIVE); GLUCOSE NEGATIVE (NEGATIVE); KETONE NEGATIVE (NEGATIVE); NITRITE NEGATIVE (NEGATIVE); UROBILINOGEN NORMAL (NORMAL)
--- NOTE | 2019-12-16 11:28 | NUR ---
CALLED PHARMACY TO SEE IF THEY HAD UBRELVY IN STOCK, BECAUSE IF SO THEN DR RODRIGUEZ WANTED PT TO RECIEVE FOR MIGRANES. SPOKE WITH PATRICIA PHAMACIST, WHO STATED WE DID NOT HAVE THAT MEDICATION IN STOCK. DR RODRIGUEZ NOTIFIED OF THIS. ALSO RECIEVED ORDERS FOR CT HEAD FOR MIGRANES AND PRN ZOFRAN FOR NAUSEA. VSS. NO ACUTE DISTRESS NOTED. WILL CONTINUE PLAN OF CARE.
--- NOTE | 2019-12-16 12:30 | NUR ---
PER KWAKU RHOADES FOR PT TO TRANSFER TO FLOOR.
--- NOTE | 2019-12-16 15:28 | NUR ---
PT SITTING UP IN BED GIVING SELF CHG BATH.
--- NOTE | 2019-12-16 16:33 | NUR ---
PT TRANSFERRED TO ROOM 2205 AT THIS TIME AFTER REPORT GIVEN TO REVIEVING NURSE. VSS. NO ACUTE DISTERSS NOTED. PT TRANSFERRED TO 2205 VIA WHEELCHAIR WITH ALL PERSONAL ITEMS. NO FURTHER ACTIONS.
--- NOTE | 2019-12-16 16:34 | NUR ---
REC'D FROM ICU TO ROOM 2205 AWAKE AND ALERT VIA WC. RESP EVEN AND UNLABORED WITH NO DISTRESS NOTED. CAN EXPRESS NEEDS AND WANTS. NO C/O PAIN OR DISCOMFORT NOTED OR VOICED. AMBULATE WITH STAND BY ASSIST WITH SLOW AND STEADY GAIT. WILL CONTINUE WITH POC. C/L IN REACH AT BEDSIDE
--- NOTE | 2019-12-16 19:41 | NUR ---
I have reviewed this patient and I concur with the Shift Assessment completed by the Licensed Practical Nurse today this shift.
[2019-12-17] VITALS: BP 125/75
[2019-12-17 04:00] VITALS: BP 111/62
[2019-12-17 04:34] LABS: BASOPHILS 0.2 % (0-2); EOSINOPHILS 0 % (0-7); HEMATOCRIT 27.5 % (36.0-48.0); HEMOGLOBIN 8.2 g/dL (12-16); IMMATURE GRANULOCYTES 1.5 % (0-5); MCH 24.6 pg (26.0-34.0); MCHC 29.8 g/dL (31.0-37.0); MCV 82.6 fL (80.0-100.0); MEAN PLATELET VOLUME 9.4 fL (7.4-10.4); MONOCYTES 4.8 % (2-11); NEUTROPHILS 86.5 % (40-80); PLATELET COUNT 343 10x3/uL (130-400); RBC 3.33 10x6/uL (4.00-5.40); RDW 17.2 % (11.5-14.5); WBC 12.3 10x3/uL (4.8-10.8)
[2019-12-17 04:49] LABS: ALBUMIN 2.3 g/dL (3.4-5.0); ALKALINE PHOSPHATASE 40 U/L (30-120); ALT (SGPT) 10 U/L (10-68); BILIRUBIN - TOTAL 0.36 mg/dL (0.2-1.3); CALC OSMOLALITY 288 mosm/kg (275-300); CALCIUM 8.3 mg/dL (8.5-10.1); CARBON DIOXIDE 28.1 mmol/L (21.0-32.0); CHLORIDE - SERUM 106 mmol/L (98-107); CREATININE - SERUM 0.8 mg/dL (0.6-1.3); GLUCOSE 164 mg/dL (74-106); POTASSIUM - SERUM 4.1 mmol/L (3.5-5.1); PROTEIN - SERUM 6.4 g/dL (6.4-8.2); SODIUM 142 mmol/L (136-145); UREA NITROGEN 17 mg/dL (7-18); eGFR NON AFRICAN AMERICAN 80 mL/min (90-120)
[2019-12-17 08:42] VITALS: BP 123/71
--- NOTE | 2019-12-17 11:05 | NUR ---
O2 SAT AT 73%. TURNED O2 UP TO 6L. BROUGHT O2 UP TO 86%. BLOOD GASES COMPLETE. PT CONDITION IMPROVED OVER THE COURSE OF 10 MINUTES. WILL CONTINUE TO MONITOR.
--- NOTE | 2019-12-17 11:33 | NUR ---
PT ALERT X 4. BREATH SOUNDS DIMINISHED TO LOWER LOBES, 6L O2 PER HFNC. PICC LINE TO RIGHT UPPER ARM, PATENT, DRESSING CDI. PT REPORTING PAIN OF 9/10, WILL CONTINUE TO MONITOR, AM MEDS GIVEN PER ORDERS. PT REPORTING DENIS AREA RAW AND TENDER, GIVEN OINTMENT. BED LOW, CALL LIGHT IN REACH. NO OTHER NEEDS AT THIS TIME.
[2019-12-17 12:35] VITALS: BP 116/65
[2019-12-17 16:08] VITALS: BP 122/72
[2019-12-17 21:59] VITALS: BP 118/63
--- NOTE | 2019-12-17 23:20 | NUR ---
MEDCIATED WITH PERCOCET FOR C/O GEN PAIN. ALERT AND ORIENTED X4. RESP EVEN AND NONLABORED. PROD COUGH REPORTED WITH WHITE SPUTUM BUT NONE SEEN. O2 @ 4L/HFC. RT UPPER ARM PICC IS SALINE LOCKED. AMBULATORY. NO DISTRESS. CL IN REACH.
[2019-12-18 00:39] VITALS: BP 108/56
--- NOTE | 2019-12-18 03:14 | NUR ---
HAS RESTED WELL TONIGHT. NO DISTRESS. CL IN REACH.
[2019-12-18 05:13] LABS: BASOPHILS 0.1 % (0-2); EOSINOPHILS 0 % (0-7); HEMATOCRIT 28.7 % (36.0-48.0); HEMOGLOBIN 8.4 g/dL (12-16); IMMATURE GRANULOCYTES 2.4 % (0-5); LYMPHOCYTES 7.4 % (15-50); MCHC 29.3 g/dL (31.0-37.0); MEAN PLATELET VOLUME 9.2 fL (7.4-10.4); MONOCYTES 4.9 % (2-11); NEUTROPHILS 85.2 % (40-80); PLATELET COUNT 383 10x3/uL (130-400); RDW 17.3 % (11.5-14.5); WBC 15.1 10x3/uL (4.8-10.8)
[2019-12-18 05:33] LABS: MAGNESIUM - SERUM 1.7 mg/dL (1.8-2.4)
[2019-12-18 05:45] LABS: ALBUMIN 2.3 g/dL (3.4-5.0); ALKALINE PHOSPHATASE 40 U/L (30-120); BILIRUBIN - TOTAL 0.24 mg/dL (0.2-1.3); CALC OSMOLALITY 283 mosm/kg (275-300); CALCIUM 8.1 mg/dL (8.5-10.1); CARBON DIOXIDE 28.8 mmol/L (21.0-32.0); CHLORIDE - SERUM 105 mmol/L (98-107); CREATININE - SERUM 0.6 mg/dL (0.6-1.3); GLUCOSE 128 mg/dL (74-106); PHOSPHOROUS 3.5 mg/dL (2.5-4.9); POTASSIUM - SERUM 3.9 mmol/L (3.5-5.1); PROTEIN - SERUM 5.6 g/dL (6.4-8.2); SODIUM 141 mmol/L (136-145); UREA NITROGEN 14 mg/dL (7-18); eGFR NON AFRICAN AMERICAN > 90 mL/min (90-120)
[2019-12-18 05:46] LABS: ALT (SGPT) 6 U/L (10-68)
[2019-12-18 06:48] VITALS: BP 119/91
--- NOTE | 2019-12-18 07:20 | NUR ---
PATIENT REQUESTS PAIN MEDICATION. HAD TO SCAN PATIENT FROM A DIFFERENT ROOM CLOSE BY AND GIVE HER PAIN MEDICATION PER EMAR. [employer] NOT ON COMPUTER. WILL NOTIFY IT OFFICES. CL IN REACH. NO FURTHER NEEDS AT THIS TIME. SABRINA
[2019-12-18 08:52] VITALS: BP 135/74
[2019-12-18 12:29] VITALS: BP 108/58
--- NOTE | 2019-12-18 12:50 | NUR ---
Nutrition follow-up: Pt feeling better Diet: consistent CHO PO intake ~50% of meals Labs reviewed Wt: 118# RDN following.
--- NOTE | 2019-12-18 13:44 | NUR ---
PATIENT UPSET ABOUT NOT HAVING DISCHARGE TODAY. STATED THEY THINK HER DOG IS ON THE SIDE OF THE ROAD AND THAT SHE WAS TRYING TO GET HER HOME HEALTH SET UP FOR WHEN SHE GOT BACK HOME. STATED SHE COULDN'T FIND THE CL ANYWHERE. IT WAS ON THE BEDSIDE TABLE. I GAVE IT TO HER. CL IN REACH. WCTM
--- NOTE | 2019-12-18 15:43 | NUR ---
BLANCHABLE REDNESS NOTED ON BUTTOCKS. ZINC OXIDE CREAM FOR USE IF PT C/O IRRITATION RELATED TO DIARRHEA. PT AMBULATORY. WOUND CARE WILL MONITOR NEEDED.
--- NOTE | 2019-12-18 16:02 | NUR ---
OT NOTE: PT COMPLETED BED MOB TASKS WITH CGA/MIN A. PT COMPLETED UB HYGIENE TASKS WITH SET UP. PT IS ANXIOUS TO GO HOME. [phone] THANK YOU,CHAZ DUKE
[2019-12-18 17:14] VITALS: BP 126/77
[2019-12-18 21:26] VITALS: BP 114/66
[2019-12-19 01:30] VITALS: BP 99/57
[2019-12-19 04:59] LABS: ALBUMIN 2.2 g/dL (3.4-5.0); ALKALINE PHOSPHATASE 35 U/L (30-120); BILIRUBIN - TOTAL 0.36 mg/dL (0.2-1.3); CALC OSMOLALITY 280 mosm/kg (275-300); CALCIUM 7.9 mg/dL (8.5-10.1); CARBON DIOXIDE 30.4 mmol/L (21.0-32.0); CHLORIDE - SERUM 103 mmol/L (98-107); CREATININE - SERUM 0.5 mg/dL (0.6-1.3); GLUCOSE 110 mg/dL (74-106); POTASSIUM - SERUM 3.5 mmol/L (3.5-5.1); PROTEIN - SERUM 6.1 g/dL (6.4-8.2); SODIUM 140 mmol/L (136-145); UREA NITROGEN 14 mg/dL (7-18); eGFR NON AFRICAN AMERICAN > 90 mL/min (90-120)
[2019-12-19 05:06] LABS: ALT (SGPT) 10 U/L (10-68)
[2019-12-19 05:12] LABS: BASOPHILS 0.1 % (0-2); EOSINOPHILS 0.1 % (0-7); HEMATOCRIT 27.6 % (36.0-48.0); HEMOGLOBIN 8.2 g/dL (12-16); IMMATURE GRANULOCYTES 2.5 % (0-5); LYMPHOCYTES 11.5 % (15-50); MCH 24.5 pg (26.0-34.0); MCHC 29.7 g/dL (31.0-37.0); MCV 82.4 fL (80.0-100.0); MEAN PLATELET VOLUME 9.3 fL (7.4-10.4); MONOCYTES 6.6 % (2-11); NEUTROPHILS 79.2 % (40-80); PLATELET COUNT 458 10x3/uL (130-400); RBC 3.35 10x6/uL (4.00-5.40); RDW 17.4 % (11.5-14.5); WBC 17.2 10x3/uL (4.8-10.8)
[2019-12-19 06:27] VITALS: BP 112/67
[2019-12-19 08:00] VITALS: BP 105/62
[2019-12-19 11:51] LABS: % SATURATION 9 % (15-55); IRON 28 ug/dl (35-150); TOTAL IRON BIND CAPACITY 305 ug/dl (260-445); UNSAT IRON BIND CAPACITY 277 ug/dl (150-375)
[2019-12-19 12:00] VITALS: BP 106/65
--- NOTE | 2019-12-19 14:17 | NUR ---
OT NOTE: PT WITH REPORTED PAIN IN B LES DUE TO RLS.. SHE STATES THAT SHE HAS BEEN TAKING THE MEDS BUT NOW HELPING THIS TIME. SUPINE TO SIT AND ALL BED MOB WITHOUT ASSIST; TRANSFERS IWTH CGA AND USE OF WALKER WITH ASSIST WITH O2 AND IV LINES. PT AMB APPROX 100 FT WITH WALKER, IV, AND 02 ... STATED THAT SHE FELT LIKE SHE DO MORE, BUT THE PAIN IN HER LEGS WAS TOO GREAT. BACK TO BED WITH SBA. PROVIDED WARM PACKS TO B LES FOR PAIN MGMT. PT WANTING TO GO HOME TODAY. ANDRZEJ COLLINS, OTR/L [phone]
[2019-12-19 16:00] VITALS: BP 112/58
[2019-12-19 20:00] VITALS: BP 89/50
--- NOTE | 2019-12-19 20:21 | NUR ---
REC'D. WALKING ROUNDS CHGE OF SHIFT.IN BED O2 2L HIGH FLOW.NO RESP. DISTRESS OBSERVED.WILL CONTINUE TO MONITOR FOR ANY CHGES IN RESP. STATUS AND FOLLOW CURRENT PLAN OF CARE.
[2019-12-20 08:34] VITALS: BP 133/76
[2019-12-20 09:23] LABS: ALBUMIN 2.2 g/dL (3.4-5.0); ALKALINE PHOSPHATASE 37 U/L (30-120); ALT (SGPT) 9 U/L (10-68); BILIRUBIN - TOTAL 0.36 mg/dL (0.2-1.3); CALC OSMOLALITY 278 mosm/kg (275-300); CARBON DIOXIDE 27.5 mmol/L (21.0-32.0); CHLORIDE - SERUM 102 mmol/L (98-107); CREATININE - SERUM 0.5 mg/dL (0.6-1.3); GLUCOSE 126 mg/dL (74-106); POTASSIUM - SERUM 3.4 mmol/L (3.5-5.1); PROTEIN - SERUM 6.4 g/dL (6.4-8.2); SODIUM 138 mmol/L (136-145); UREA NITROGEN 14 mg/dL (7-18); eGFR NON AFRICAN AMERICAN > 90 mL/min (90-120)
[2019-12-20 09:33] LABS: HEMATOCRIT 28.9 % (36.0-48.0); HEMOGLOBIN 8.6 g/dL (12-16); MCH 24.8 pg (26.0-34.0); MCHC 29.8 g/dL (31.0-37.0); MCV 83.3 fL (80.0-100.0); PLATELET COUNT 490 10x3/uL (130-400); RBC 3.47 10x6/uL (4.00-5.40); RDW 18.3 % (11.5-14.5)
--- NOTE | 2019-12-20 10:18 | NUR ---
RESTING IN BED, NO DISTRESS NOTED, C/O PAIN THIS AM, STATES FIORCET NOT HELPIN HER HEAD, ASK RACE AND SPORTS BOOK WRITER FOR PAIN PATCH, CONT TO MONITOR, O2 PER NC, UP TO BATHROOM WITH ASSIST
[2019-12-20 12:59] VITALS: BP 94/53
--- NOTE | 2019-12-20 13:18 | NUR ---
OT NOTE: PT CONT TO REPORT PAIN IN LEGS AND ALSO A HEADACHE. PT SITTING UP ON EOB EATING. AGREEABLE TO AMB IN ROOM..REQUIRED USE OF WALKER AND CGA FOR IN ROOM AMBULATION AND ALSO ABLE TO AMB INTO BARB[place]A FOR ENDURANCE ACT.( REQUIRED INCREASED ASSISTANCE DUE TO IV AND 02). PT ABLE TO PERFORM GROOMING AND TOILETING WITH SBA; SET UP FOR GOWN AND MOD ASSIST TO MARIPOSA SOCKS. PT WANTING TO GO HOME AND DISCUSSED THE FACT THAT SHE LIVES IN [address] STATES THAT SHE USES WALKER AND USUALLY TAKES REST BREAK ON ROLATER SEAT AFTER ABOUT 20-30 STEPS. PT DID AMB TODAY APPROX 150 FT WHICH IS CONSIDERED HOUSEHOLD DISTANCE. 02 WAS ON 2L, BUT PT STATED THAT SHE ONLY USED O2 AT NIGHT WHEN SHE WAS AT HOME. ANDRZEJ COLLINS, OTR/L [phone]
[2019-12-20 13:54] LABS: ANISOCYTOSIS OCC; HYPOCHROMASIA OCC; LYMPHOCYTES 13 % (15-50); MONOCYTES 8 % (2-11); NEUTROPHILS 76 % (40-80); PLATELET ESTIMATE INCREASED; POLYCHROMASIA OCC
--- NOTE | 2019-12-20 15:30 | NUR ---
OT NOTE: PT COMPLETED SIDE ROLLING WITH SBA. PT COMPLETED SUPINE TO SIT WITH CGA. PT C/O LEG PAIN. NURSING AWARE. PT COMPLETED FACE/HAND HYGIENE TASKS WITH SET UP. PT COOPERATIVE WITH SESSION. [phone] THANK YOU,CHAZ DUKE
[2019-12-20 16:55] VITALS: BP 104/56
--- NOTE | 2019-12-20 17:00 | NUR ---
PICC LINE DRESSING CHANGED, KIM WELL, NO REDNESS NOTED
[2019-12-20 20:00] VITALS: BP 115/68
[2019-12-21] VITALS: BP 139/70
--- NOTE | 2019-12-21 00:06 | NUR ---
PT LYING IN BED AWAKE ALERT AND ORIENTED x4. NO SIGNS OF DISTRESS NOTED. ASSISTED PT TO RESTROOM AND BACK TO BED. PT TOLERATED WELL. RESPIRATIONS EVEN AND UNLABORED. PT STATES THAT SHE DOES NOT WANT SCHEDULED ROBAXIN. INSTEAD PRN DANTRIUM GIVEN PER PT REQUEST. PT ENCOUARGED TO CALL FOR HELP WHEN WANTING TO GET IN AND OUT OF BED. CALL LIGHT AND OTHER PERSONAL ITEMS ARE WITH IN REACH. WILL CONTINUE TO MONITOR
--- NOTE | 2019-12-21 02:56 | NUR ---
I have reviewed this patient and I concur with the Shift Assessment completed by the Licensed Practical Nurse today this shift.
[2019-12-21 04:00] VITALS: BP 110/64
--- NOTE | 2019-12-21 07:39 | NUR ---
ASSIST PT UP TO THE RESTROOM SEVERAL TIMES THROUGH OUT THE NIGHT. PT C/O BACK PAIN. PRNPAIN MEDICATION GIVEN. CALL LIGHT WITH IN REACH
--- NOTE | 2019-12-21 08:04 | NUR ---
SHE IS ASKING FOR TYLENOL FOR PAIN. SHE IS WEARING 2 LITERS NC. OT GOING TO GET HER IN THE SHOWER. NO PROBLEMS WITH TAKING HER MEDICATIONS.
[2019-12-21 08:30] VITALS: BP 108/56
[2019-12-21 12:12] LABS: CALCIUM 8.1 mg/dL (8.5-10.1); CARBON DIOXIDE 24.8 mmol/L (21.0-32.0); CHLORIDE - SERUM 102 mmol/L (98-107); CREATININE - SERUM 0.6 mg/dL (0.6-1.3); SODIUM 137 mmol/L (136-145); UREA NITROGEN 12 mg/dL (7-18); eGFR NON AFRICAN AMERICAN > 90 mL/min (90-120)
[2019-12-21 12:14] LABS: CALC OSMOLALITY 271 mosm/kg (275-300); GLUCOSE 71 mg/dL (74-106); POTASSIUM - SERUM 4.4 mmol/L (3.5-5.1)
[2019-12-21 12:25] VITALS: BP 106/55
--- NOTE | 2019-12-21 12:29 | NUR ---
OT NOTE: PT REQUESTING SHOWER THIS AM. PREPARED EVERYTHING FOR SHOWER INCLUDING SHOWER CHAIR. PRIOR TO ENTERING SHOWER, CHECKED PTS 02 SATS WHICH WERE 87 WITH 02 AT 2L. PT DISCUSSED THE FACT THAT SHE WAS FEARFUL THAT SHE WOULD HAVE TO USE 02 AT HOME CONTINUOUSLY NOW VS ONLY AT NIGHT. WITH PROPER BREATHING TECHNIQUE, PTS SATS INCREASED TO 94 WITHIN APPROX 1 MIN. KEPT 02 ON PT SHE AMB TO SHOWER WITH MIN ASSIST. PT ABLE TO DOFF SOCKS AND BRIEF IN STANDING WHILE HOLDING ON TO HAND RAIL. DEMONSTRATED GOOD DYNAMIC STANDIGN BALANCE. REQUIRED EXTENSIVE ASSIST WITH CLEANING HAIR DUE TO B SHOULDER LIMITATIONS. REMOVED 02 WHILE IN THE SHOWER, PT STATED THAT SHE FELT FINE. PT ABLE TO BATHE REST OF BODY WITH SBA. ABLE TO PROGRAM MANUFACTURING LEADER SHOWER TO CLEAN PERINEAL AREA WITH SBA. APPLIED 02 FOLLOWING SHOWER THEN DRIED PT AND AMB BACK TO BED. 02 CHECKED AT THIS TIME AT 94%...PT ABLE TO PERFORM DRESSING WITH SET UP; THEN AMB TO BATHROOM TO PERFORM TOILETING WITH SBA.. 02 CHECKED AGAIN AT 93%..PT CONT TO C/O LEG PAIN , BUT PHYSICALLY SHE IS DOING MUCH BETTER. ANDRZEJ COLLINS, OTR/L [phone]
[2019-12-21 12:54] LABS: BASOPHILS 0.1 % (0-2); EOSINOPHILS 0.1 % (0-7); HEMOGLOBIN 8.3 g/dL (12-16); IMMATURE GRANULOCYTES 6.4 % (0-5); LYMPHOCYTES 9.3 % (15-50); MCH 24.9 pg (26.0-34.0); MCHC 29.6 g/dL (31.0-37.0); MCV 83.8 fL (80.0-100.0); MONOCYTES 4.2 % (2-11); NEUTROPHILS 79.9 % (40-80); PLATELET COUNT 477 10x3/uL (130-400); RBC 3.34 10x6/uL (4.00-5.40); RDW 18.6 % (11.5-14.5); WBC 16.1 10x3/uL (4.8-10.8)
[2019-12-21] MEDS ORDERED: SYMBICORT 16010.2 GM INH (14:49)
[2019-12-21] MEDS ORDERED: PREDNISONE20 MG PO (14:50)
--- NOTE | 2019-12-21 15:48 | NUR ---
OT NOTE: PT COMPLETED SUPINE TO SIT WITH SBA. PT COMPLETED SIT TO STAND WITH CGA. PT COMPLETED UE AROM AXS WITH FUNCTIONAL AXS. [phone] THANK YOU,CHAZ DUKE
[2019-12-21] MEDS ORDERED: NICODERM CQ1 EAC3 TOPICAL (16:10)
--- NOTE | 2019-12-21 16:57 | MORECARE ---
CASE MANAGEMENT DISCHARGE SUMMARY PATIENT: BRIAN BARBOSA UNIT: [id number] ADM DATE: 12/13/19 AGE: 54 : 69 SEX: F ROOM/BED: D.2205 AUTHOR: DEVINDOC PHYSICIAN: REFERRING PHYSICIAN: MIGUEL RODRIGUEZ DO DATE OF SERVICE: 12/21/19 Discharge Plan Patient Name: BRIAN BARBOSA Facility: [facility]:[place] : 1965 Planned Disposition: Home Anticipated Discharge Date: Discharge Date: Expected LOS: Initial Reviewer: [id number] Initial Review Date: 12/14/2019 Generated: 12/21/19 5:56 pm Comments DCP- Discharge Planning Updated by [email or web address]: Judit Pepper on 12/21/19 3:[address] PATIENT WILL BE DISCHARGING HOME TODAY IMM SERVED AND EXPLAINED. PATIENT STATES HER CARE GIVERS WILL BE THERE ON WEDNESDAY AREA AGING ON AGING. I HAVE CALLED HER STERIOD TAPER INTO [facility] ORDERED PER DR AVILA 20 MG DAILY TAPER 5 MG Q 3 DAYS TILL OFF. CM WILL CONTINUE TO FOLLOW AND ASSIST NEEDED DCP- Discharge Planning Updated by [id number]: Ifeoma Moran on 12/15/19 4:[address] LATE ENTRY 12/14/19 Patient Name: BRIAN BARBOSA Admission Status: ER Accout number: [id number] Admission Date: 12-13-2019 : 1965 Admission Diagnosis:ACUTE AND CHRONIC RESPIRATORY FAILURE WITH HYPERCAPNIA Attending: MIGUEL RODRIGUEZ Current LOS: 2 Anticipated DC Date: Planned Disposition: Home Primary Insurance: [facility] MEDICARE SOLUTIONS Discharge Planning Comments: CM met with patient to complete initial dc planning assessment. CM educated patient on the CM role and verbal consent given by patient to complete assessment. Patient lives at home alone where she is independent with her care. At discharge patient plans to return home and feels this is a safe discharge. CM discussed availability of home health, rehab services, and medical equipment. Her daughter will be her medical van driver home. Patient has a nebulizer and home o2 ( [place] home patient ) Patient states that she has a summer child caregiver that come out with [employer]. Patient denied known discharge needs at this time. CM will continue to follow and will assist as needed with dc plans/needs. Aluminum Sheet Cutter: Ifeoma Moran DCPIA - Discharge Planning Initial Assessment Updated by [id number]: Ifeoma Moran on 12/15/19 5:03 pm * Is the patient Alert and Oriented? Yes * How many steps to enter\exit or inside your home? * PCP RICK * Pharmacy [facility] * Preadmission Environment Home Alone * ADLs Independent * Equipment Nebulizer * Other Equipment HOME / PORTABLE 02, NEBULIZER, WALKER, CANE, SHOWER CHAIR * List name and contact numbers for known caregivers / representatives who currently or will assist patient after discharge: ALBERTO NICHOLS - DAUGHTER - [phone] * Verbal permission to speak to the caregivers and representatives has been obtained from the patient. Yes * Community resources currently utilized Other * Please name any agencies selected above. [employer] - [employer] * Additional services required to return to the preadmission environment? No * Can the patient safely return to the preadmission environment? Yes * Has this patient been hospitalized within the prior 30 days at any hospital? No Coverage Notice Reviewer: [id number] Anabelle Pepper Notice Issued Date-Time: 12/21/2019 16:55 Notice Type: IM Discharge Notice Notice Delivered To: Patient Relationship to Patient: Real Estate Operations Manager Name: Delivery Method: HAND - Hand Delivered Sarah Days: Prior Verbal Notification: Recipient Understood Notice: Yes Recipient Signature: Yes Med Rec Note Co-signed by Attending: Coverage Notice Comment: Last DP export: 12/15/19 4:06 p Patient Name: BRIAN BARBOSA Page [id number] at 1657 All edits/amendments must be made on the electronic document DICTATION DATE: 12/21/191655 COPRA SAMPLER: RONNA 12/21/191655 RPT#: [id number] DC DATE: STATUS: ADM IN [facility] [address] [place] [address] END OF REPORT
--- NOTE | 2019-12-21 18:16 | NUR ---
PICC LINE REMOVED PER NICOLÁS CONROY, [facility]. MEDS FROM OUR PHARMACY RETURNED TO THE PATIENT. SHE WAS TAKEN DOWN IN A WHEELCHAIR TO THE FRONT DOOR, WITH HER HOME O2.
--- NOTE | 2019-12-22 10:27 | MORECARE ---
CASE MANAGEMENT DISCHARGE SUMMARY PATIENT: BRIAN BARBOSA UNIT: [id number] ADM DATE: 12/13/19 AGE: 54 : 69 SEX: F ROOM/BED: D.2205 AUTHOR: DEVIN,DOC PHYSICIAN: REFERRING PHYSICIAN: MIGUEL RODRIGUEZ DO DATE OF SERVICE: 12/22/19 Discharge Plan Patient Name: BRIAN BARBOSA Facility: [facility]:[place] : 1965 Planned Disposition: Home Anticipated Discharge Date: Discharge Date: 12/21/2019 Expected LOS: 0 Initial Reviewer: [email or web address] Initial Review Date: 12/14/2019 Generated: 12/22/19 11:26 am Comments DCP- Discharge Planning Updated by [id number]: Judit Pepper on 12/21/19 3:[address] PATIENT WILL BE DISCHARGING HOME TODAY IMM SERVED AND EXPLAINED. PATIENT STATES HER CARE GIVERS WILL BE THERE ON WEDNESDAY AREA AGING ON AGING. I HAVE CALLED HER STERIOD TAPER INTO [facility] ORDERED PER DR AVILA 20 MG DAILY TAPER 5 MG Q 3 DAYS TILL OFF. CM WILL CONTINUE TO FOLLOW AND ASSIST NEEDED DCP- Discharge Planning Updated by [email or web address]: Ifeoma Moran on 12/15/19 4:[address] LATE ENTRY 12/14/19 Patient Name: BRIAN BARBOSA Admission Status: ER Accout number: [id number] Admission Date: 12-13-2019 : 1965 Admission Diagnosis:ACUTE AND CHRONIC RESPIRATORY FAILURE WITH HYPERCAPNIA Attending: MIGUEL RODRIGUEZ Current LOS: 2 Anticipated DC Date: Planned Disposition: Home Primary Insurance: [facility] MEDICARE SOLUTIONS Discharge Planning Comments: CM met with patient to complete initial dc planning assessment. CM educated patient on the CM role and verbal consent given by patient to complete assessment. Patient lives at home alone where she is independent with her care. At discharge patient plans to return home and feels this is a safe discharge. CM discussed availability of home health, rehab services, and medical equipment. Her daughter will be her hazmat tanker driver home. Patient has a nebulizer and home o2 ( Kazakh home patient ) Patient states that she has a child care group leader that come out with [employer]. Patient denied known discharge needs at this time. CM will continue to follow and will assist as needed with dc plans/needs. Outreach Professional: Ifeoma Moran DCPIA - Discharge Planning Initial Assessment Updated by [email or web address]: Ifeoma Moran on 12/15/19 5:03 pm * Is the patient Alert and Oriented? Yes * How many steps to enter\exit or inside your home? * PCP RICK * Pharmacy [facility] * Preadmission Environment Home Alone * ADLs Independent * Equipment Nebulizer * Other Equipment HOME / PORTABLE 02, NEBULIZER, WALKER, CANE, SHOWER CHAIR * List name and contact numbers for known caregivers / representatives who currently or will assist patient after discharge: ALBERTO NICHOLS - DAUGHTER - [phone] * Verbal permission to speak to the caregivers and representatives has been obtained from the patient. Yes * Community resources currently utilized Other * Please name any agencies selected above. [employer] - PHYSICIST [employer] * Additional services required to return to the preadmission environment? No * Can the patient safely return to the preadmission environment? Yes * Has this patient been hospitalized within the prior 30 days at any hospital? No Coverage Notice Reviewer: [email or web address] Anabelle Pepper Notice Issued Date-Time: 12/21/2019 16:55 Notice Type: IM Discharge Notice Notice Delivered To: Patient Relationship to Patient: Etched Circuit Processor Name: Delivery Method: HAND - Hand Delivered Sarah Days: Prior Verbal Notification: Recipient Understood Notice: Yes Recipient Signature: Yes Med Rec Note Co-signed by Attending: Coverage Notice Comment: Last DP export: 12/21/19 3:56 p Patient Name: BRIAN BARBOSA Page [phone] at 1027 All edits/amendments must be made on the electronic document DICTATION DATE: 12/22/19 1027 BUSINESS SERVICES ASSISTANT: RONNA 12/22/19 1027 RPT#: [id number] DC DATE:12/21/19 STATUS: DIS IN [facility] [address] [place] [address] END OF REPORT
== END 2019-12-21 18:18 | disposition home or self-care (01) | DRG 871 ==
LOC: D.ER 18:08 → D.MS 18:55 → D.ER 18:55 → D.MS 20:29 → D.ICU 20:29 → D.ER 22:11 → D.ICU 22:51 → D.MS 12-16 16:18
PROVIDERS: Family Medicine; Internal Medicine Nephrology; Internal Medicine Pulmonary Disease; ADMIT Family Medicine; ATTEND Family Medicine
DX: A41.9 Sepsis, unspecified organism (principal); J96.21 Acute and chronic respiratory failure with hypoxia; J15.6 Pneumonia due to other Gram-negative bacteria; I50.33 Acute on chronic diastolic (congestive) heart failure; J44.0 Chronic obstructive pulmonary disease with (acute) lower respiratory infection; F17.203 Nicotine dependence unspecified, with withdrawal; J45.909 Unspecified asthma, uncomplicated; E78.5 Hyperlipidemia, unspecified; K21.9 Gastro-esophageal reflux disease without esophagitis; I11.0 Hypertensive heart disease with heart failure; E11.40 Type 2 diabetes mellitus with diabetic neuropathy, unspecified; I25.10 Atherosclerotic heart disease of native coronary artery without angina pectoris; E27.8 Other specified disorders of adrenal gland; Z86.73 Personal history of transient ischemic attack (TIA), and cerebral infarction without residual deficits

== ENCOUNTER → 2020-02-26 22:17 | Outpatient (CLI) | payer MEDICARE, MEDICAID ==
[2019-12-14 07:51] VITALS: BMI 23.6
[~2020-02-26 22:17] MED LIST changes: +NICODERM CQ1 EAC3 TOPICAL
[2020-02-26 23:01] LABS: CHOL - HDL RATIO 1.9 ratio (2.3-4.1); LDL-HDL RATIO 0.5 ratio (1.5-3.5)
== END | disposition home or self-care (01) ==
LOC: D.LABREF 22:17
PROVIDERS: ATTEND Family Medicine
DX: E78.5 Hyperlipidemia, unspecified (principal); I25.10 Atherosclerotic heart disease of native coronary artery without angina pectoris

== ENCOUNTER → 2020-11-28 15:54 | Outpatient (CLI) | payer MEDICARE, MEDICAID ==
[2019-12-14 07:51] VITALS: BMI 23.6
== END | disposition home or self-care (01) ==
LOC: D.US 15:54
PROVIDERS: ATTEND Internal Medicine Pulmonary Disease
DX: R60.0 Localized edema (principal)